=== PATIENT | female | born 1940 | race Caucasian/White ===

== ENCOUNTER 2016-08-19 06:44 | Observation (INO) | payer MEDICARE, OTHER ==
[~2016-08-19] VITALS: Ht 170.2 cm; Wt 82.0 kg
[~2016-08-19 06:44] MED LIST: PAXI10TA2 PO; PLAQ200T PO; PRED1 PO
[2016-08-19 06:50] VITALS: BP 167/76; PULSE 85; RESP 20; TEMP 99.6; O2SAT 94
[2016-08-19] MEDS ORDERED: TETANUS/DIPHTHERIA TOXOID ADULT 0.5 ML VIAL IM ONE (07:15)
[2016-08-19] MEDS ORDERED: PRED1 PO (07:18)
--- NOTE | 2016-08-19 07:20 | PD ---
HPI Chief Complaint: Cold / Flu Symptoms Time Seen by Provider: 07:00 Travel History International Travel<30 days: No Contact w/Intl Traveler<30days: No Traveled to known affect area: No History of Present Illness HPI 76 years old female complains of left chest discomfort. Patient states the symptoms started about 9 days ago. Patient states that she has persistent left chest discomfort, not associated with exertion. Patient denies any pain radiation. Patient denies palpitation nausea vomiting diaphoresis. Patient denies any fever chills. Patient states that she has intermittent mild productive cough for the past 5 days. Patient has history of COPD. Patient contacted her physician about 5 days ago and was given prescription for Medrol Dosepak. Patient states that the discomfort got better with the Medrol Dosepak. Patient denies any history of CAD. Patient denies history hypertension, diabetes, dyslipidemia. Patient states that she injured right hand on the elevator door last night. Patient states that she has a laceration on the back of her right hand. Patient's not up-to-date with TD booster. PFSH Past Medical History Hx Anticoagulant Therapy: No Anxiety: Yes COPD: Yes Diabetes: No Respiratory: Yes (COPD) ?: Not Menopausal: Yes Past Surgical History Section: Yes (X2) Hysterectomy: No Neurologic Surgery: Yes (DISCECTOMY) Tonsillectomy: Yes Other Surgery: Yes (LUMPECTOMY RIGHT BREAST) Social History Alcohol Use: Yes (WINE WITH DINNER) Tobacco Use: No Substance Use: No Allergies-Medications (Allergen,Severity, Reaction): Coded Allergies: Shellfish (Verified Allergy, Severe, Anaphylaxis, 08/19/16) Reported Meds & Prescriptions Reported Meds & Active Scripts Active Reported Prednisone 1 Mg Tab 1 Mg PO DIRECTED Paxil (Paroxetine HCl) 10 Mg Tab Unknown Dose PO DAILY Prednisone 1 Mg Tab 7.5 PO DAILY Plaquenil (Hydroxychloroquine Sulfate) 200 Mg Tab Unknown Dose PO BID Take with food Review of Systems General / Constitutional: No: Fever Eyes: No: Visual changes HENT: No: Headaches Cardiovascular: Positive: Chest Pain or Discomfort Respiratory: No: Shortness of Breath Gastrointestinal: No: Abdominal Pain Genitourinary: No: Dysuria Musculoskeletal: Positive: Pain Skin: No Rash Neurologic: No: Weakness Psychiatric: No: Depression Endocrine: No: Polydipsia Hematologic/Lymphatic: No: Easy Bruising Physical Exam Narrative GENERAL: Well-nourished, well-developed patient. SKIN: Warm and dry. HEAD: Normocephalic. EYES: No scleral icterus. No injection or drainage. NECK: Supple, trachea midline. No JVD or lymphadenopathy. CARDIOVASCULAR: Regular rate and rhythm without murmurs, gallops, or rubs. RESPIRATORY: Breath sounds equal bilaterally. No accessory muscle use. Patient had mild expiratory wheezes on the right lung. Few rhonchi at the bases. GASTROINTESTINAL: Abdomen soft, non-tender, nondistended. MUSCULOSKELETAL: No cyanosis, or edema. Patient has a 3 cm skin avulsion laceration dorsal aspect of the right hand. BACK: Nontender without obvious deformity. No CVA tenderness. Neurologic exam normal. Data Data Last Documented VS Vital Signs Date Time Temp Pulse Resp B/P Pulse Ox O2 Delivery O2 Flow Rate FiO2 08/19/16 07:15 95 Room Air 08/19/16 06:50 99.6 85 20 167/76 Orders Electrocardiogram (08/19/16 07:08) Complete Blood Count With Diff (08/19/16 07:08) Comprehensive Metabolic Panel (08/19/16 07:08) Creatine Kinase (Cpk) (08/19/16 07:08) Troponin I (08/19/16 07:08) Prothrombin Time / Inr (Pt) (08/19/16 07:08) Act Partial Throm Time (Ptt) (08/19/16 07:08) Chest, Single Ap (08/19/16 07:08) Iv Access Insert/Monitor (08/19/16 07:08) Ecg Monitoring (08/19/16 07:08) Oximetry (08/19/16 07:08) Hand, Complete ([id number]) (08/19/16 07:08) Tetanus/Diphtheria Tox Adult (Tetanus/Di (08/19/16 07:15) Labs Laboratory Tests Test 08/19/16 07:35 White Blood Count 17.4 TH/MM3 Red Blood Count 4.65 MIL/MM3 Hemoglobin 14.9 GM/DL Hematocrit 44.4 % Mean Corpuscular Volume 95.7 FL Mean Corpuscular Hemoglobin 32.1 PG Mean Corpuscular Hemoglobin 33.5 % Concent Red Cell Distribution Width 12.7 % Platelet Count 105 TH/MM3 Mean Platelet Volume 9.6 FL Neutrophils (%) (Auto) 79.1 % Lymphocytes (%) (Auto) 9.1 % Monocytes (%) (Auto) 7.9 % Eosinophils (%) (Auto) 2.4 % Basophils (%) (Auto) 1.5 % Neutrophils # (Auto) 13.7 TH/MM3 Lymphocytes # (Auto) 1.6 TH/MM3 Monocytes # (Auto) 1.4 TH/MM3 Eosinophils # (Auto) 0.4 TH/MM3 Basophils # (Auto) 0.3 TH/MM3 CBC Comment AUTO DIFF Differential Comment AUTO DIFF CONFIRMED Platelet Estimate LOW Platelet Morphology Comment ENLARGED Prothrombin Time 10.0 SEC Prothromb Time International 0.9 RATIO Ratio Activated Partial 19.9 SEC Thromboplast Time Sodium Level 144 MEQ/L Potassium Level 4.3 MEQ/L Chloride Level 105 MEQ/L Carbon Dioxide Level 31.9 MEQ/L Anion Gap 7 MEQ/L Blood Urea Nitrogen 16 MG/DL Creatinine 0.76 MG/DL Estimat Glomerular Filtration 74 ML/MIN Rate Random Glucose 109 MG/DL Calcium Level 8.5 MG/DL Total Bilirubin 0.8 MG/DL Aspartate Amino Transf 33 U/L (AST/SGOT) Alanine Aminotransferase 16 U/L (ALT/SGPT) Alkaline Phosphatase 100 U/L Total Creatine Kinase 168 U/L Troponin I 0.02 NG/ML Total Protein 6.8 GM/DL Albumin 3.6 GM/DL [facility] Medical Decision Making Medical Screen Exam Complete: Yes Emergency Medical Condition: Yes Interpretation(s) 8:39 AM. CBC WBC 17.4. Platelet 105. 79 neutrophil. CMP within normal limit. Cardiac enzymes are normal. 9:13 AM. Last Impressions Chest X-Ray 08/19/16 0708 Signed Impressions: Service Date/Time: Friday, August 19, 2016 07:57 - CONCLUSION: No acute disease. Tapan Pizarro MD X-ray right hand shows chronic changes. Differential Diagnosis Differential diagnosis including acute exacerbation COPD, bronchitis, pneumonia , angina, OR, PE, pneumothorax. Narrative Course 76 years old female with left chest discomfort, coughing, right hand injury. Procedures Procedure Narrative Saline wash. Dermabond applied to the laceration to the right hand. Diagnosis Primary Impression: Chest pain Qualified Code: R07.9 - Chest pain, unspecified type Additional Impressions: Laceration of right hand Qualified Code: S61.411A - Laceration of right hand, initial encounter URI (upper respiratory infection) Qualified Code: J06.9 - Upper respiratory tract infection, unspecified type Jeff Parson MD Aug 19, 2016 07:20
[2016-08-19 07:47] LABS: AUTOMATED NEUTROPHIL # 13.7 TH/MM3 (1.8-7.7); BASOPHIL # 0.3 TH/MM3 (0-0.2); BASOPHIL % 1.5 % (0.0-2.0); EOSINOPHIL # 0.4 TH/MM3 (0-0.4); EOSINOPHIL % 2.4 % (0.0-4.0); HEMATOCRIT 44.4 % (35.0-46.0); HEMO FLAGS AUTO DIFF; LYMPH % 9.1 % (9.0-44.0); LYMPHOCYTE # 1.6 TH/MM3 (1.0-4.8); MEAN CELL VOLUME 95.7 FL (80.0-100.0); MEAN CORPUSCULAR HEMOGLOBIN 32.1 PG (27.0-34.0); MEAN CORPUSCULAR HGB CONC 33.5 % (32.0-36.0); MONO % 7.9 % (0.0-8.0); NEUT % 79.1 % (16.0-70.0); PLATELET COUNT 105 TH/MM3 (150-450); RED BLOOD COUNT 4.65 MIL/MM3 (4.00-5.30); RED CELL DISTRIBUTION WIDTH 12.7 % (11.6-17.2); WHITE BLOOD COUNT 17.4 TH/MM3 (4.0-11.0)
[2016-08-19 07:55] LABS: CHLORIDE 105 MEQ/L (98-107); POTASSIUM 4.3 MEQ/L (3.5-5.1); SODIUM (NA) 144 MEQ/L (136-145)
[2016-08-19 07:58] LABS: ANION GAP 7 MEQ/L (5-15); BICARBONATE 31.9 MEQ/L (21.0-32.0); INTERNATIONAL NORMALIZED RATIO 0.9 RATIO
[2016-08-19 07:59] LABS: BLOOD UREA NITROGEN 16 MG/DL (7-18)
[2016-08-19 08:01] LABS: APTT (PATIENT) 19.9 SEC (24.3-30.1)
[2016-08-19 08:02] LABS: ALT (GPT) 16 U/L (10-53); AST (GOT) 33 U/L (15-37); GLOMERULAR FILTRATION RATE 74 ML/MIN (>89)
[2016-08-19 08:03] LABS: TOTAL BILIRUBIN ADULT 0.8 MG/DL (0.2-1.0)
[2016-08-19 08:04] LABS: ALKALINE PHOSPHATASE 100 U/L (45-117); CREATINE KINASE 168 U/L (26-192)
[2016-08-19 08:21] LABS: SCAN/DIFF AUTO DIFF CONFIRMED
[2016-08-19 08:22] LABS: PLATELET ESTIMATE SMEAR LOW (NORMAL); PLATELET MORPHOLOGY ENLARGED (NORMAL)
--- NOTE | 2016-08-19 08:42 | RADHPO ---
EXAM DATE/TIME: 08/19/2016 07:57 [facility] COMPARISON: CHEST SINGLE AP, July 25, 2014, 7:39. INDICATIONS : Left chest discomfort, cough. MEDICAL HISTORY : Chronic obstructive pulmonary disease. SURGICAL HISTORY : section. Discectomy. Lumpectomy. ENCOUNTER: Initial ACUITY: 2 weeks PAIN SCORE: 7/10 LOCATION: Left chest FINDINGS: A single view of the chest demonstrates the lungs to be symmetrically aerated without evidence of mas s, infiltrate or effusion. The cardiomediastinal contours are unremarkable. Osseous structures are intact. CONCLUSION: No acute disease. Tapan Pizarro MD on August 19, 2016 at 8:39 Board Certified Radiologist. This report was verified electronically.
--- NOTE | 2016-08-19 09:01 | RADHPO ---
EXAM DATE/TIME: 08/19/2016 08:01 [facility] COMPARISON: No previous studies available for comparison. INDICATIONS: Right posterior hand laceration/pain across the metacarpals after getting had caught in elevator door . MEDICAL HISTORY: Chronic obstructive pulmonary disease. SURGICAL HISTORY: section. Discectomy. Lumpectomy. ENCOUNTER: Initial ACUITY: 1 day PAIN SCORE: 7/10 LOCATION: Right posterior hand. FINDINGS: There is no acute fracture or dislocation of the right hand. Moderate osteoarthritis is noted involv ing the first carpal metacarpal joint. Chondrocalcinosis is noted involving the expected region of t he triangular fibrocartilage complex. Subchondral cyst is noted involving the lunate. CONCLUSION: 1. No acute fracture or dislocation. 2. 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 3. Chondrocalcinosis involving the triangular fibrocartilage complex. 4. Subchondral cyst within the lunate. Tapan Pizarro MD on August 19, 2016 at 8:53 Board Certified Radiologist. This report was verified electronically.
[2016-08-19] MEDS ORDERED: SODIUM CHLORIDE 0.9% FLUSH 5 ML FLUSH IVF PRN (09:45)
[2016-08-19] MEDS ORDERED: ONDANSETRON HCL 4 MG/2 ML VIAL IV PRN (09:45)
[2016-08-19] MEDS ORDERED: ACETAMINOPHEN 500 MG CPLT PO PRN (09:45)
[2016-08-19 09:56] VITALS: O2SAT 93
[2016-08-19 09:57] VITALS: BP 188/61; PULSE 87; RESP 19; O2SAT 93
[2016-08-19] MEDS ORDERED: HYDROXYCHLOROQUINE SULFATE 200 MG TAB PO ONE (10:00)
[2016-08-19] MEDS ORDERED: PARoxetine HCL 20 MG TAB PO ONE (10:00)
[2016-08-19] MEDS ORDERED: predniSONE 10 MG TAB PO ONE (10:00)
[2016-08-19] MEDS ORDERED: guaiFENesin/DEXTROMETHORPHAN 200 MG/20 MG/10 ML CUP PO PRN (10:00)
[2016-08-19] MEDS ORDERED: RESP: ALBUTEROL 2.5 MG/IPRATROPIUM 0.5 MG NEB (PRN) NEB ×2 (10:00→13:00)
[2016-08-19 11:00] VITALS: O2SAT 95
[2016-08-19 11:12] VITALS: BP 159/93; PULSE 87; RESP 16; O2SAT 93
--- NOTE | 2016-08-19 11:37 | EKG ---
Date Performed: 08/19/2016 Time Performed: 07:39:06 PTAGE: 76 years EKG: Sinus rhythm Lateral T wave changes are nonspecific Borderline ECG PREVIOUS TRACING : 07/25/2014 06.46 DOCTOR: Tevin Cunningham Interpretating Date/Time 08/19/2016 11:34:49
[2016-08-19 11:59] LABS: CREATINE KINASE 122 U/L (26-192)
[2016-08-19 12:11] LABS: CKMB 3.2 NG/ML (0.5-3.6)
[2016-08-19 12:31] VITALS: BP 167/80; PULSE 81; RESP 16; TEMP 99.7; O2SAT 91
[2016-08-19] MEDS ORDERED: LEVOFLOXACIN 500 MG TAB PO SCH (13:00)
--- NOTE | 2016-08-19 13:09 | HHI.HP ---
[facility] Primary Care Physician Chelsie Puente MD Admission Diagnosis chest pain. URI. Diagnoses: (1) Chest pressure Diagnosis: Principal (2) Chronic obstructive pulmonary disease Diagnosis: Secondary (3) Leukocytosis Diagnosis: Secondary (4) Rheumatoid arthritis Diagnosis: Secondary (5) Anxiety Chief Complaint: Chest pressure Travel History International Travel<30 Days: No Contact w/Intl Traveler <30 Da: No Traveled to Known Affected Are: No History of Present Illness 76-year-old female with known history of chronic obstructive pulmonary disease, anxiety, rheumatoid arthritis who presented to hospital because of chest discomfort. Patient states that she has been having symptoms for up to 2 weeks with a pressure type sensation in her left anterior chest that has remained persistent but improving without any radiation to the neck, back, shoulder, arm. Denied any nausea, vomiting, diaphoresis. Patient states he started developing cough, congestion, phlegm production with yellow coloration with some minimal shortness of breath with associated wheeze. The patient does have chronic obstructive pulmonary disease and she thought that she may be developing bronchitis so she called her product trainer, Dr. yarbrough approximately a week ago and was prescribed a steroid pack in which she is down to 10 mg daily this time. Patient states that she usually gets prescribed an antibiotic whenever this occurs, however her primary doctor did not do at this time. She states that the discomfort has significantly improved and her wheeze has improved. However, yesterday she was in charge of planning the [employer] and she overdid herself. She woke up this morning with increased wheeze and chest pressure so she came to the hospital for evaluation. Patient is hoping to get prescribed a antibiotic can be sent home. However because of her chest discomfort, it was recommended by the ER physician that the patient be observed in the chest pain center for further evaluation management. Review of Systems Constitutional: DENIES: Diaphoretic episodes, Fatigue, Fever, Weight gain, Weight loss, Chills, Dizziness, Change in appetite, Night Sweats Eyes: DENIES: Blurred vision, Diplopia, Eye inflammation, Eye pain, Vision loss , Double Vision Ears, nose, mouth, throat: DENIES: Vertigo, Nasal discharge, Throat pain, Ear Pain, Running Nose, Toothache Respiratory: COMPLAINS OF: Cough, DENIES: Apneas, Snoring, Wheezing, Hemoptysis, Sputum production, Shortness of breath Cardiovascular: COMPLAINS OF: Chest pain (pressure), DENIES: Palpitations, Syncope, Dyspnea on Exertion, Lower Extremity Edema, Orthopnea Gastrointestinal: DENIES: Abdominal pain, Black stools, Bloody stools, Constipation, Diarrhea, Nausea, Vomiting, Difficulty Swallowing, Anorexia Neurologic: DENIES: Abnormal gait, Headache, Localized weakness, Paresthesias, Seizures, Speech Problems, Tremor, Poor Balance Psychiatric: COMPLAINS OF: Anxiety, DENIES: Confusion, Mood changes, Depression Past Family Social History Past Medical History Chronic obstructive pulmonary disease Rheumatoid arthritis History of breast cancer, survival for 7 years Anxiety Past Surgical History Cataract surgery Tonsillectomy Back surgery Right breast lumpectomy Reported Medications Reported Meds & Active Scripts Active Reported Prednisone 1 Mg Tab 1 Mg PO DIRECTED Paxil (Paroxetine HCl) 10 Mg Tab Unknown Dose PO DAILY Prednisone 1 Mg Tab 7.5 PO DAILY Plaquenil (Hydroxychloroquine Sulfate) 200 Mg Tab Unknown Dose PO BID Take with food Allergies: Coded Allergies: Shellfish (Verified Allergy, Severe, Anaphylaxis, 08/19/16) Family History Reviewed is significant for mother from throat cancer Social History Patient quit smoking in 1984, prior to that she smoked up to 2 pack a cigarettes a day since she was 19 years old. She does drink 2 glasses of wine daily. Denies any illicit drugs Physical Exam Vital Signs Vital Signs Date Time Temp Pulse Resp B/P Pulse Ox O2 Delivery O2 Flow Rate FiO2 08/19/16 12:31 99.7 81 16 167/80 91 08/19/16 11:12 87 16 159/93 93 Room Air 08/19/16 11:06 Room Air 21 08/19/16 11:00 95 21 08/19/16 09:57 87 19 188/61 93 Room Air 08/19/16 09:56 93 Room Air 08/19/16 07:15 95 Room Air 08/19/16 06:50 99.6 85 20 167/76 94 Physical Exam GENERAL: Well-developed, well-nourished, in no acute distress. alert and orientated HEENT: Head is normocephalic without any lesions or masses noted. Facial features are symmetric. Eyes: Pupils equal round reactive to light. Extraocular muscles are intact. Conjunctivae were clear. Oropharyngeal: Pharynx without any erythema edema. Tongue is midline without deviation. Buccal mucosa is moist without any masses or lesions NECK: Supple without any masses. Trachea midline no deviation. No JVD, no bruits are appreciated CARDIAC: Regular rhythm, regular rate. S1/S2 are heard. No murmurs gallops or rubs. LUNGS: Mild expiratory wheeze noted in the left anterior chest, no rhonchi or rales. No use of accessory muscles on inspiration or expiration. ABDOMEN: Soft, nontender. Nondistended. Bowel sounds heard in all 4 quadrants. No organomegaly or masses. Negative rebound, negative guarding EXTREMITIES: No edema, pulses are equal bilaterally. No cyanosis or clubbing NEUROLOGY: Mood and affect appear appropriate. Cranial nerves II through XII grossly intact. Muscle strength 5/5 in upper and lower extremities bilaterally. Deep tendon reflexes are 2+ in upper and lower extremities bilaterally. Laboratory Laboratory Tests Test 08/19/16 08/19/16 07:35 11:30 White Blood Count 17.4 Red Blood Count 4.65 Hemoglobin 14.9 Hematocrit 44.4 Mean Corpuscular Volume 95.7 Mean Corpuscular Hemoglobin 32.1 Mean Corpuscular Hemoglobin 33.5 Concent Red Cell Distribution Width 12.7 Platelet Count 105 Mean Platelet Volume 9.6 Neutrophils (%) (Auto) 79.1 Lymphocytes (%) (Auto) 9.1 Monocytes (%) (Auto) 7.9 Eosinophils (%) (Auto) 2.4 Basophils (%) (Auto) 1.5 Neutrophils # (Auto) 13.7 Lymphocytes # (Auto) 1.6 Monocytes # (Auto) 1.4 Eosinophils # (Auto) 0.4 Basophils # (Auto) 0.3 CBC Comment AUTO DIFF Differential Comment AUTO DIFF CONFIRMED Platelet Estimate LOW Platelet Morphology Comment ENLARGED Prothrombin Time 10.0 Prothromb Time International 0.9 Ratio Activated Partial 19.9 Thromboplast Time Sodium Level 144 Potassium Level 4.3 Chloride Level 105 Carbon Dioxide Level 31.9 Anion Gap 7 Blood Urea Nitrogen 16 Creatinine 0.76 Estimat Glomerular Filtration 74 Rate Random Glucose 109 Calcium Level 8.5 Total Bilirubin 0.8 Aspartate Amino Transf 33 (AST/SGOT) Alanine Aminotransferase 16 (ALT/SGPT) Alkaline Phosphatase 100 Total Creatine Kinase 168 122 Troponin I 0.02 0.03 Total Protein 6.8 Albumin 3.6 Creatine Kinase MB 3.2 Result Diagram: 08/19/1673408/19/16734 Imaging Last Impressions Hand X-Ray 08/19/16707 Signed Impressions: Service Date/Time: Friday, August 19, 2016 08:01 - CONCLUSION: 1. No acute fracture or dislocation. 2. 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 3. Chondrocalcinosis involving the triangular fibrocartilage complex. 4. Subchondral cyst within the lunate. Tapan Pizarro MD Chest X-Ray 08/19/16707 Signed Impressions: Service Date/Time: Friday, August 19, 2016 07:57 - CONCLUSION: No acute disease. Tapan Pizarro MD Assessment and Plan Assessment and Plan Chest pressure Etiology indeterminate this time, could be secondary to COPD, bronchitis, upper respiratory infection, cardiac etiology Patient with minimal risk factors include age, history of tobacco use Thus far, cardiac enzymes are negative for any acute coronary event, will continue 1 more set Thus far EKG shows sinus rhythm with lateral T-wave changes which are nonsignificant without any changes Continue aspirin and nitroglycerin as needed Patient indicates that this is same chest discomfort that she gets whenever she has COPD exacerbation, bronchitis. Discussed with patient's primary medical doctor Dr. Puente, notified her that patient appears to have noncardiac chest pain, patient does not feel like she needs to undergo any cardiac testing because this is same symptoms she has when she has her lung problems. Patient was notified to follow-up with Dr. Puente. Dr. Puente is aware and agrees with plan of care. Chronic obstructive pulmonary disease, possible early bronchitis Continue O2 supplementation maintain O2 sats greater than 92% Give 1 dose of Solu-Medrol 60 mg IV, Continue prednisone 10 mg by mouth twice daily Start Levaquin 500 mg daily, patient does appear to have some underlying possible chronic kidney disease stage III Continue nebulizer treatments every 6 hours and every 2 hours as needed Start incentive spirometry Start Robitussin Cough medicine Leukocytosis Likely secondary to recent steroid use Continue follow CBC Rheumatoid arthritis Continue Plaquenil Anxiety Continue Paxil DVT prevention Sequential compression devices Written by Vincent Feliciano PA-C, acting as scribe for Dr. Oneill on 08/19/16 at 1330. The documentation accurately reflects the work and decisions performed face-to- face by Dr. Oneill on 08/19/16 at 1330. Discharge disposition Discharge home in stable condition Activity: Ad kaya. Diet: Healthy heart diet Medications per medication reconciliation Follow-up primary medical doctor in one week Problem Qualifiers (1) Chronic obstructive pulmonary disease: Qualified Code: J44.9 - Chronic obstructive pulmonary disease, unspecified COPD type (2) Leukocytosis: Qualified Code: D72.829 - Leukocytosis, unspecified type (3) Rheumatoid arthritis: Qualified Code: M06.9 - Rheumatoid arthritis, involving unspecified site, unspecified rheumatoid factor presence Vincent Feliciano Aug 19, 2016 13:09
[2016-08-19] MEDS ORDERED: IPRASOL NEB (13:27)
[2016-08-19] MEDS ORDERED: LEVA500T PO (13:27)
--- NOTE | 2016-08-19 13:27 | HHI.DCPOC ---
Discharge Care Plan Diagnosis: (1) Chest pressure (2) Chronic obstructive pulmonary disease Goals to Promote Your Health * To prevent worsening of your condition and complications * To maintain your health at the optimal level Directions to Meet Your Goals Take your medications as prescribed Follow your dietary instruction Follow activity as directed Keep your appointments as scheduled Take your immunizations and boosters as scheduled If your symptoms worsen call your PCP, if no PCP go to Urgent Care Center or Emergency Room Smoking is Dangerous to Your Health. Avoid second hand smoke Call the 24-hour hour crisis hotline for domestic abuse at Vincent Feliciano Aug 19, 2016 13:27
[2016-08-19] MEDS ORDERED: methylPREDNISolone SOD SUCC 40 MG/1 ML VIAL IV PUSH ONE (13:30)
[2016-08-19 14:43] LABS: CREATINE KINASE 115 U/L (26-192)
[2016-08-19] MEDS ORDERED: RESP: ALBUTEROL 2.5 MG/IPRATROPIUM 0.5 MG NEB (SCH) NEB (16:00)
[2016-08-19] MEDS ORDERED: SODIUM CHLORIDE 0.9% FLUSH 5 ML FLUSH IVF SCH (21:00)
[2016-08-19] MEDS ORDERED: predniSONE 10 MG TAB PO SCH (21:00)
[2016-08-20] MEDS ORDERED: HYDROXYCHLOROQUINE SULFATE 200 MG TAB PO SCH (09:00)
[2016-08-20] MEDS ORDERED: PARoxetine HCL 20 MG TAB PO SCH (09:00)
--- NOTE | 2016-08-20 17:31 | EKG ---
Date Performed: 08/19/2016 Time Performed: 11:09:20 PTAGE: 76 years EKG: Sinus rhythm . Lateral T wave changes are nonspecific Since previous tracing, no significant change noted Borderli ne ECG PREVIOUS TRACING : 08/19/2016 07.39 DOCTOR: Karri Lecuhga Interpretating Date/Time 08/20/2016 17:30:12
--- NOTE | 2016-08-20 17:31 | EKG ---
Date Performed: 08/19/2016 Time Performed: 14:09:08 PTAGE: 76 years EKG: Sinus rhythm with PAC(s). Since previous tracing, no significant change noted Borderline ECG PREVIOUS TRACING : 08/19/2016 11.09 DOCTOR: Karri Lechuga Interpretating Date/Time 08/20/2016 17:30:29
== END 2016-08-19 15:58 | disposition home or self-care (01) ==
LOC: PHED 06:44 → PHEDA 09:42 → PH3B 11:59
PROVIDERS: ADMIT Family Medicine; ATTEND Family Medicine
DX: R07.89 Other chest pain (principal); J44.9 Chronic obstructive pulmonary disease, unspecified; S61.411A Laceration without foreign body of right hand, initial encounter; J06.9 Acute upper respiratory infection, unspecified; F41.9 Anxiety disorder, unspecified; M06.9 Rheumatoid arthritis, unspecified; M11.20 Other chondrocalcinosis, unspecified site; M19.90 Unspecified osteoarthritis, unspecified site; Z85.3 Personal history of malignant neoplasm of breast; Z87.891 Personal history of nicotine dependence
CPT/HCPCS: 12013; 71010; 73130; 80053; 82550; 82552; 84484; 85025; 85610; 85730; 90471; 90714; 93005; 94150; 94640; 94664; 99285; G0378; J2920; J7512

== ENCOUNTER → 2016-09-12 | Outpatient (CLI) | payer MEDICARE, OTHER ==
[~2016-09-12] MED LIST changes: +IPRASOL NEB; +LEVA500T PO
[2016-09-12 13:34] LABS: FREE T4 1.09 NG/DL (0.76-1.46)
== END ==
LOC: CLAB 11:49
PROVIDERS: ATTEND Internal Medicine Cardiovascular Disease
DX: R53.83 Other fatigue (principal); I49.9 Cardiac arrhythmia, unspecified; R07.89 Other chest pain
CPT/HCPCS: 36415; 84439; 84443

== ENCOUNTER → 2016-10-23 | Outpatient (CLI) | payer MEDICARE, OTHER ==
--- NOTE | 2016-10-23 14:12 | RSPPFT ---
DATE OF PROCEDURE: 10/23/16 COMMENTS: VOLUMES DYNAMIC: FVC mildly reduced; FEV1 moderately reduced. STATIC: VTG moderately increased; RV severely increased; TLC normal. FLOWS: FEV1% moderately reduced; FEF 25-75 severely reduced. DIFFUSION: Normal. FLOW VOLUME LOOP: Pattern of variable intrathoracic airways obstruction. IMPRESSION: Moderately severe obstructive ventilatory defect with significant hyperinflation. Airways resistance is increased. There is improvement post-bronchodilator. Diffusion is normal.
== END ==
LOC: HRSP 08:57
PROVIDERS: ATTEND Internal Medicine
DX: J44.9 Chronic obstructive pulmonary disease, unspecified (principal)
CPT/HCPCS: 94060; 94620; 94726; 94729

== ENCOUNTER 2017-06-08 09:50 | Emergency (ER) | payer MEDICARE, OTHER ==
[~2017-06-08] VITALS: Ht 167.6 cm; Wt 81.0 kg
[~2017-06-08 09:50] MED LIST changes: -PAXI10TA2 PO; +PAXI10TA8 PO
[2017-06-08 09:52] VITALS: BP 182/81; PULSE 88; RESP 16; TEMP 98.4; O2SAT 95
[2017-06-08] MEDS ORDERED: SODIUM CHLORIDE 0.9% FLUSH 10 ML FLUSH IVF PRN (10:15)
[2017-06-08] MEDS ORDERED: methylPREDNISolone SOD SUCC 125 MG/2 ML VIAL IV PUSH ONE (10:45)
--- NOTE | 2017-06-08 10:45 | RADRPT ---
EXAM DATE/TIME: 06/08/2017 10:20 [facility] COMPARISON: CHEST SINGLE AP, July 25, 2014, 7:39. CHEST SINGLE AP, August 19, 2016, 7:57. INDICATIONS : Cough, shortness of breath MEDICAL HISTORY : Chronic obstructive pulmonary disease. SURGICAL HISTORY : section. Discectomy. Lumpectomy. ENCOUNTER: Initial ACUITY: 4 - 6 days PAIN SCORE: 0/10 LOCATION: Bilateral chest FINDINGS: Mild motion blurring of the mid and lower lung crawford. No definite infiltrates seen. Heart is kristin l size. Both hemidiaphragms remain delineated. Hemoclips and a focal opacity in the lateral right l ower chest wall stable from prior chest x-ray. CONCLUSION: No consolidative infiltrates seen. Braden Us MD on June 08, 2017 at 10:42 Board Certified Radiologist. This report was verified electronically.
[2017-06-08] MEDS: RESP: ALBUTEROL 2.5 MG/IPRATROPIUM 0.5 MG NEB (SCH) INH (10:47)
[2017-06-08 10:59] LABS: BASOPHIL % 0.1 % (0.0-2.0); HEMATOCRIT 43.2 % (35.0-46.0); HEMO FLAGS DIFF FINAL; LYMPH % 3.4 % (9.0-44.0); LYMPHOCYTE # 0.5 TH/MM3 (1.0-4.8); MEAN CELL VOLUME 95.3 FL (80.0-100.0); MEAN CORPUSCULAR HEMOGLOBIN 32.4 PG (27.0-34.0); MONO % 9.8 % (0.0-8.0); NEUT % 86.7 % (16.0-70.0); PLATELET COUNT 153 TH/MM3 (150-450); RED BLOOD COUNT 4.53 MIL/MM3 (4.00-5.30); RED CELL DISTRIBUTION WIDTH 12.8 % (11.6-17.2); WHITE BLOOD COUNT 13.9 TH/MM3 (4.0-11.0)
[2017-06-08 11:15] LABS: POTASSIUM 3.9 MEQ/L (3.5-5.1)
[2017-06-08] MEDS ORDERED: ZITHTAB PO (11:30)
[2017-06-08] MEDS ORDERED: PRED10PA2 PO (11:30)
--- NOTE | 2017-06-08 11:30 | PD ---
HPI . Shortness of breath Chief Complaint: Respiratory Symptoms Time Seen by Provider: 10:38 Travel History International Travel<30 days: No Contact w/Intl Traveler<30days: No Traveled to known affect area: No History of Present Illness HPI This patient presents with chief complaint of shortness of breath. Onset was 5 days ago. Shortness of breath is exacerbated by eating. It is associated with a cough productive of purulent sputum. It has been unrelieved by a beta agonist MDI. No associated fevers or chills. Patient reports a history of COPD. She has an albuterol MDI which she uses as a rescue inhaler. She was on a cruise for the past 5 days. She got off the ship this morning. She states that she developed the cough and shortness of breath at about the time the cruise started. She states that she went and saw the ship's doctor who gave her the beta agonist MDI. She has been using that but is not getting any better. She subsequently presents directly to us from the ship for evaluation of her shortness of breath and productive cough. PFSH Past Medical History Hx Anticoagulant Therapy: No Anxiety: Yes COPD: Yes Diabetes: No Diminished Hearing: No Respiratory: Yes (copd) Pneumonia: Yes ?: Not Menopausal: Yes Past Surgical History Section: Yes (X2) Hysterectomy: No Neurologic Surgery: Yes (DISCECTOMY) Tonsillectomy: Yes Other Surgery: Yes (LUMPECTOMY RIGHT BREAST) Social History Alcohol Use: Yes (WINE 1-2 GLASSES WITH DINNER) Tobacco Use: No Substance Use: No Allergies-Medications (Allergen,Severity, Reaction): Coded Allergies: shellfish derived (Unverified Allergy, Severe, Anaphylaxis, 02/26/17) Reported Meds & Prescriptions Reported Meds & Active Scripts Active Duoneb (Ipratropium-Albuterol Neb) 0.5-2.5 Mg/3 Ml Neb 1 Ampule NEB Q6HR NEB 30 Days Levaquin (Levofloxacin) 500 Mg Tab 500 Mg PO DAILY 7 Days Reported Prednisone 1 Mg Tab 1 Mg PO DIRECTED Paxil (Paroxetine HCl) 10 Mg Tab Unknown Dose PO DAILY Prednisone 1 Mg Tab 7.5 PO DAILY Plaquenil (Hydroxychloroquine Sulfate) 200 Mg Tab Unknown Dose PO BID Take with food Review of Systems Except as stated in HPI: all other systems reviewed are Neg General / Constitutional: No: Fever, Chills Cardiovascular: No: Chest Pain or Discomfort Respiratory: Positive: Cough, Shortness of Breath Gastrointestinal: Positive: Loss of Appetite Physical Exam Narrative GENERAL: Awake and alert and in no acute distress. SKIN: warm/dry. Good color. HEAD: Normocephalic. Atraumatic. EYES: Pupils equal and round. No scleral icterus. No injection or drainage. ENT: No nasal bleeding or discharge. Mucous membranes pink and moist. NECK: Trachea midline. Full range of motion without pain.. CARDIOVASCULAR: Regular rate and rhythm. Normal heart sounds. RESPIRATORY: Able to speak in complete sentences without any respiratory distress. No accessory muscle use. Diffuse expiratory wheezing heard with coughing. Breath sounds equal bilaterally. GASTROINTESTINAL: Abdomen soft. Nontender. Bowel sounds present. Nondistended. : Deferred MUSCULOSKELETAL: No obvious deformities. NEUROLOGICAL: Awake and alert. No obvious cranial nerve deficits. Motor grossly within normal limits. Normal speech. PSYCHIATRIC: Appropriate mood and affect; insight and judgment normal. Data Data Last Documented VS Vital Signs Date Time Temp Pulse Resp B/P (MAP) Pulse Ox O2 Delivery O2 Flow Rate FiO2 06/08/17 10:09 Room Air 06/08/17 09:52 98.4 88 16 182/81 (114) 95 Orders Orders Basic Metabolic Panel (Bmp) (06/08/17 10:10) Complete Blood Count With Diff (06/08/17 10:10) Blood Culture (06/08/17 10:10) Chest, Single Ap (06/08/17 10:10) Sodium Chloride 0.9% Flush (Ns Flush) (06/08/17 10:15) Albuterol-Ipratropium Neb (Duoneb Neb) (06/08/17 10:45) Methylprednisolone So Succ Inj (Solumedr (06/08/17 10:45) Labs Laboratory Tests Test 06/08/17 10:40 White Blood Count 13.9 TH/MM3 Red Blood Count 4.53 MIL/MM3 Hemoglobin 14.7 GM/DL Hematocrit 43.2 % Mean Corpuscular Volume 95.3 FL Mean Corpuscular Hemoglobin 32.4 PG Mean Corpuscular Hemoglobin Concent 34.0 % Red Cell Distribution Width 12.8 % Platelet Count 153 TH/MM3 Mean Platelet Volume 9.9 FL Neutrophils (%) (Auto) 86.7 % Lymphocytes (%) (Auto) 3.4 % Monocytes (%) (Auto) 9.8 % Eosinophils (%) (Auto) 0.0 % Basophils (%) (Auto) 0.1 % Neutrophils # (Auto) 12.0 TH/MM3 Lymphocytes # (Auto) 0.5 TH/MM3 Monocytes # (Auto) 1.4 TH/MM3 Eosinophils # (Auto) 0.0 TH/MM3 Basophils # (Auto) 0.0 TH/MM3 CBC Comment DIFF FINAL Differential Comment Blood Urea Nitrogen 27 MG/DL Creatinine 0.65 MG/DL Random Glucose 148 MG/DL Calcium Level 9.0 MG/DL Sodium Level 138 MEQ/L Potassium Level 3.9 MEQ/L Chloride Level 100 MEQ/L Carbon Dioxide Level 31.0 MEQ/L Anion Gap 7 MEQ/L Estimat Glomerular Filtration Rate 89 ML/MIN MDM Medical Decision Making Medical Screen Exam Complete: Yes Emergency Medical Condition: Yes Differential Diagnosis Differential diagnosis includes but is not limited to viral respiratory illness , bronchitis, pneumonia, allergies, CHF, asthma/COPD. Narrative Course Patient presents complaining with a cough and shortness of breath. CBC & BMP Diagram 06/08/17 10:40 Calcium Level 9.0 CXR>>No consolidative infiltrates seen. The chest x-ray was independently viewed by me. I will treat the patient for bronchitis with steroids and Zithromax. She should continue her MDI treatment. Diagnosis Primary Impression: Bronchitis Additional Impression: COPD (chronic obstructive pulmonary disease) Qualified Codes: J44.1 - Chronic obstructive pulmonary disease with (acute) exacerbation Patient Instructions: Acute Bronchitis (DC), General Instructions Med/Other Pt SpecificInfo: Prescription(s) given Scripts Prednisone (48) 10 mg tab Dose Pack (Prednisone (48) 10 mg tab Dose Pack) 10 Mg Dspk 10 MG PO DIRECTED for Inflammation, #1 DSPK 0 Refills Prov: Kyleigh Pope MD 06/08/17 Azithromycin (Zithromax Z-Kem) 250 Mg Dspk 250 MG PO DIRECTED for Infection, #1 DSPK 0 Refills 500 MG (2 tabs) day 1, then 1 tab days 2-5. Prov: Kyleigh Pope MD 06/08/17 Disposition: 01 DISCHARGE HOME Condition: Stable Kyleigh Pope MD Jun 08, 2017 11:30
[2017-06-08 12:32] VITALS: BP 137/83
== END 2017-06-08 12:33 | disposition home or self-care (01) ==
LOC: NEPC 09:50
DX: J40 Bronchitis, not specified as acute or chronic (principal); J44.1 Chronic obstructive pulmonary disease with (acute) exacerbation
CPT/HCPCS: 71010; 80048; 85025; 87040; 94664; 96374; 99285; J2930

== ENCOUNTER 2017-06-10 03:05 | Inpatient (IN) | payer MEDICARE, OTHER ==
[~2017-06-10] VITALS: Ht 167.6 cm; Wt 79.0 kg
[2017-06-10] VITALS (27 sets, daily range): BP systolic 117–221; BP diastolic 54–93; PULSE 77–170; RESP 16–28; TEMP 98–98.7; O2SAT 94–100
[~2017-06-10 03:05] MED LIST changes: +PRED10PA2 PO; +ZITHTAB PO
[2017-06-10 03:28] LABS: AUTOMATED NEUTROPHIL # 17.8 TH/MM3 (1.8-7.7); BASOPHIL % 0.2 % (0.0-2.0); HEMATOCRIT 45.9 % (35.0-46.0); LYMPHOCYTE # 1.5 TH/MM3 (1.0-4.8); MEAN CELL VOLUME 96.9 FL (80.0-100.0); MEAN CORPUSCULAR HEMOGLOBIN 32.5 PG (27.0-34.0); MEAN CORPUSCULAR HGB CONC 33.6 % (32.0-36.0); NEUT % 81.8 % (16.0-70.0); PLATELET COUNT 244 TH/MM3 (150-450); RED BLOOD COUNT 4.73 MIL/MM3 (4.00-5.30); WHITE BLOOD COUNT 21.8 TH/MM3 (4.0-11.0)
[2017-06-10 03:34] LABS: HEMO FLAGS AUTO DIFF
--- NOTE | 2017-06-10 03:42 | RADRPT ---
EXAM DATE/TIME: 06/10/2017 03:22 [place] COMPARISON: CHEST SINGLE AP, June 08, 2017, 10:20. INDICATIONS : Shortness of breath. MEDICAL HISTORY : Chronic obstructive pulmonary disease. SURGICAL HISTORY : section. Discectomy. Lumpectomy. ENCOUNTER: Initial ACUITY: 1 day PAIN SCORE: 0/10 LOCATION: Bilateral chest FINDINGS: A single view of the chest demonstrates the lungs to be symmetrically aerated without evidence of mas s, infiltrate or effusion. The cardiomediastinal contours are unremarkable. Osseous structures are intact. There is an oval calcific density with surrounding clips seen in the right lateral chest. CONCLUSION: No acute disease. Rishi Mulligan MD on June 10, 2017 at 3:40 Board Certified Radiologist. This report was verified electronically.
[2017-06-10 04:00] LABS: BANDS 12 % (0-6); METAMYELOCYTES 2 % (0-1); NEUTROPHIL # MANUAL DIFF 18.7 TH/MM3 (1.8-7.7); POLYS (SEG NEUTROPHILS) 72 % (16-70); SCAN/DIFF FINAL DIFF MANUAL; TOXIC VACUOLATION PRESENT (NONE SEEN); WBC DIFF SAMPLE 100
[2017-06-10 04:01] LABS: PLATELET ESTIMATE SMEAR NORMAL (NORMAL); PLATELET MORPHOLOGY NORMAL (NORMAL); TOXIC GRANULATION 1+ (NORMAL)
--- NOTE | 2017-06-10 04:07 | PD ---
HPI Chief Complaint: Respiratory Symptoms Time Seen by Provider: 03:31 Travel History International Travel<30 days: No Contact w/Intl Traveler<30days: No Traveled to known affect area: No History of Present Illness HPI The patient is a 76 year old female who presents to the [facility] emergency department with a history of history of congestion and cough that began a week ago. Her cough has been productive of yellow to green sputum. She reports having low grade fevers. She has had shortness of breath and wheezing. She has a history of COPD. She was seen in the emergency department and started on a prednisone taper on Friday as well as a Zithromax pack. She reports that she completed the course of antibiotic yesterday and continues to be on the steroid. The patient reports that this evening she was trying to get up to go to the bathroom when she had worsening shortness of breath. She reports that she was incontinent of urine and she was not able to get to the bathroom. Ambulance services were called and the patient was noted to have diffuse wheezing. The patient was placed on an albuterol nebulizer treatment and was given 3 prior to arrival. IV access was obtained and the patient was given Solu-Medrol 125 mg IV. A review of systems otherwise, the patient denies having any chest pain, however she reports having tightness when she tries to take a deep breath. She denies having any prior history of heart disease. She denies having any lower extremity edema, calf pain, or erythema. On review of systems otherwise, she denies having any neck pain, abdominal pain, vomiting, diarrhea, urinary symptoms, or neurologic symptoms. The patient reports that she has had her pneumonia vaccine as well as her influenza vaccine this season. [facility], [facility] Past Medical History Narrative Medical The patient's past medical history is significant for COPD rheumatoid arthritis , history of breast cancer that is post lumpectomy followed by radiation therapy in 2005. Hx Anticoagulant Therapy: No Anxiety: Yes COPD: Yes Diabetes: No Diminished Hearing: No Respiratory: Yes (copd) Pneumonia: Yes Influenza Vaccination: Yes ?: Not Menopausal: Yes Past Surgical History Narrative Surgical The patient's past surgical history is significant for lumpectomy of the right breast, discectomy, tonsillectomy. Section: Yes (X2) Hysterectomy: No Neurologic Surgery: Yes (DISCECTOMY) Tonsillectomy: Yes Other Surgery: Yes (LUMPECTOMY RIGHT BREAST) Social History Alcohol Use: Yes (WINE 1-2 GLASSES WITH DINNER) Tobacco Use: No Substance Use: No Allergies-Medications (Allergen,Severity, Reaction): Coded Allergies: shellfish derived (Unverified Allergy, Severe, Anaphylaxis, 02/26/17) Reported Meds & Prescriptions Reported Meds & Active Scripts Active Prednisone (48) 10 mg tab Dose Pack (Prednisone) 10 Mg Dspk 10 Mg PO DIRECTED Duoneb (Ipratropium-Albuterol Neb) 0.5-2.5 Mg/3 Ml Neb 1 Ampule NEB Q6HR NEB 30 Days Reported Prednisone 1 Mg Tab 1 Mg PO DIRECTED Paxil (Paroxetine HCl) 10 Mg Tab Unknown Dose PO DAILY Prednisone 1 Mg Tab 7.5 PO DAILY Plaquenil (Hydroxychloroquine Sulfate) 200 Mg Tab Unknown Dose PO BID Take with food Review of Systems Except as stated in HPI: all other systems reviewed are Neg General / Constitutional: Positive: Fever, Chills Eyes: No: Visual changes HENT: Positive: Congestion, No: Headaches Cardiovascular: Positive: Chest Pain or Discomfort (chest tightness with taking a deep breath), Dyspnea on exertion Respiratory: Positive: Cough, Shortness of Breath Gastrointestinal: No: Nausea, Vomiting, Diarrhea, Abdominal Pain Genitourinary: No: Dysuria Musculoskeletal: No: Pain Skin: No Rash Neurologic: No: Weakness Psychiatric: No: Depression Endocrine: No: Polydipsia Hematologic/Lymphatic: No: Easy Bruising Physical Exam Narrative General: The patient is a well-developed well-nourished female, uncomfortable appearing on arrival with conversational dyspnea. Head and Neck exam: Head is normocephalic atraumatic. Eyes: EOMI, pupils are equal round and reactive to light. Nose: Midline septum with pink mucous membranes Mouth: Dentition unremarkable. Moist mucus membranes. Posterior oropharynx is not erythematous. No tonsillar hypertrophy. Uvula midline. Airway patent. Neck: No palpable lymphadenopathy. No nuchal rigidity. No thyromegaly. Cardiovascular: Sinus tachycardia in the low 100s without murmurs, gallops, or rubs. No pulse deficit to the extremities on simultaneous auscultation and palpation of her radial artery. Lungs: Expiratory wheezes audible throughout bilateral lung crawford, and scattered rhonchi that improved with coughing. No crackles audible. The patient has accessory muscle use noted. The patient has no tripoding. No paroxysmal abdominal breathing. Abdomen: Soft, without tenderness to palpation in all 4 quadrants of the abdomen. No guarding, rebound, or rigidity. Normal bowel sounds are audible. No tenderness on palpation of McBurney's point. Extremities: No clubbing, cyanosis, or edema. 2+ pulses in all 4 extremities. No calf tenderness on palpation. Back: No costovertebral angle tenderness to palpation. Neurologic Exam: Grossly nonfocal. Skin: No rashes noted. The patient is slightly diaphoretic on arrival. Data Data Last Documented VS Vital Signs Date Time Temp Pulse Resp B/P (MAP) Pulse Ox O2 Delivery O2 Flow Rate FiO2 06/10/17 03:12 113 16 204/85 (124) 98 Aerosol Mask 6.00 06/10/17 03:07 98.7 Orders Orders Complete Blood Count With Diff (06/10/17 03:14) Comprehensive Metabolic Panel (06/10/17 03:14) Chest, Single Ap (06/10/17 ) Electrocardiogram (06/10/17 ) Blood Culture (06/10/17 04:07) Cath For Specimen (06/10/17 04:07) Albuterol-Ipratropium Neb (Duoneb Neb) (06/10/17 04:15) Ceftriaxone Inj (Rocephin Inj) (06/10/17 04:15) Azithromycin Inj (Zithromax Inj) (06/10/17 04:15) Lactic Acid Sepsis Protocol (06/10/17 04:07) Sodium Chlor 0.9% 1000 Ml Inj (Ns 1000 M (06/10/17 04:18) Sodium Chlor 0.9% 1000 Ml Inj (Ns 1000 M (06/10/17 04:18) Sodium Chlor 0.9% 1000 Ml Inj (Ns 1000 M (06/10/17 04:18) Resp Bipap / Cpap Non Invas Vt (06/10/17 ) Admit Order (Ed Use Only) (06/10/17 05:17) Labs Laboratory Tests Test 06/10/17 03:15 06/10/17 04:05 White Blood Count 21.8 TH/MM3 Red Blood Count 4.73 MIL/MM3 Hemoglobin 15.4 GM/DL Hematocrit 45.9 % Mean Corpuscular Volume 96.9 FL Mean Corpuscular Hemoglobin 32.5 PG Mean Corpuscular Hemoglobin Concent 33.6 % Red Cell Distribution Width 13.0 % Platelet Count 244 TH/MM3 Mean Platelet Volume 9.2 FL Neutrophils (%) (Auto) 81.8 % Lymphocytes (%) (Auto) 7.0 % Monocytes (%) (Auto) 11.0 % Eosinophils (%) (Auto) 0.0 % Basophils (%) (Auto) 0.2 % Neutrophils # (Auto) 17.8 TH/MM3 Lymphocytes # (Auto) 1.5 TH/MM3 Monocytes # (Auto) 2.4 TH/MM3 Eosinophils # (Auto) 0.0 TH/MM3 Basophils # (Auto) 0.0 TH/MM3 CBC Comment AUTO DIFF Differential Total Cells Counted 100 Neutrophils % (Manual) 72 % Band Neutrophils % 12 % Lymphocytes % 5 % Monocytes % 9 % Neutrophils # (Manual) 18.7 TH/MM3 Metamyelocytes 2 % Differential Comment FINAL DIFF MANUAL Toxic Granulation 1+ Toxic Vacuolation PRESENT Platelet Estimate NORMAL Platelet Morphology Comment NORMAL Red Cell Morphology Comment NORMAL Blood Urea Nitrogen 39 MG/DL Creatinine 0.67 MG/DL Random Glucose 179 MG/DL Total Protein 7.1 GM/DL Albumin 3.3 GM/DL Calcium Level 9.2 MG/DL Alkaline Phosphatase 135 U/L Aspartate Amino Transf (AST/SGOT) 44 U/L Alanine Aminotransferase (ALT/SGPT) 50 U/L Total Bilirubin 0.5 MG/DL Sodium Level 141 MEQ/L Potassium Level 3.9 MEQ/L Chloride Level 106 MEQ/L Carbon Dioxide Level 28.2 MEQ/L Anion Gap 7 MEQ/L Estimat Glomerular Filtration Rate 86 ML/MIN Lactic Acid Level 1.9 mmol/L [facility] Medical Decision Making Medical Screen Exam Complete: Yes Emergency Medical Condition: Yes Medical Record Reviewed: Yes Differential Diagnosis COPD exacerbation, versus pneumonia, versus pneumothorax Narrative Course During the course of the patients emergency department visit, the patients history, examination, and differential diagnosis were reviewed with the patient. The patient was placed on a cardiac cath tech with oximetry and frequent blood pressure monitoring. The patient had IV access obtained and blood work sent for analysis. The patient had an ECG done on arrival that shows a sinus tachycardia with heart rate of 112, no acute ST segment elevation. During the patient's observation on telemetry she did have intermittent episodes of SVT. An ECG was able to be done while she was in an episode which did spontaneously break on its own. The SVT with a rate of 185 with the premature ventricular contraction noted. No acute ST segment elevation. The patient was initially provided normal saline at 30 mL per KG IV fluid bolus once sepsis criteria were met, Rocephin 1 g IV was given 1, Zithromax 500 IV was given. The patients laboratory studies were reviewed and remarkable for a white count of 21.8, hemoglobin 15.4, platelets 244 with 72 neutrophils, bands 12, CMP is remarkable for a glucose of 179, BUN 39, lactic acid 1.9, AST 44, alkaline phosphatase 135 Radiology studies were reviewed and remarkable for a chest x-ray that shows no acute cardiopulmonary disease. The patient was started on BiPAP as the patient continued to have tachypnea. The patients results were discussed with the patient, including the plan of care. I explained that further testing and/ or monitoring is indicated based on the patients history, examination, and/ or laboratory findings. Therefore, I recommended admission for additional evaluation. The patient expressed understanding and was agreeable with this plan. The patient was admitted to the hospital in guarded condition and sent to a bed under the care of the [facility]. Critical Care Narrative Aggregate critical care time was 38 minutes. Time to perform other separately billable procedures was not included in the critical care time. My time did not include minutes spent treating any other patients simultaneously or on activities that did not directly contribute to the patient's treatment. The services I provided to this patient were to treat and/or prevent clinically significant deterioration that could result in: Respiratory failure, versus fluid overload related to over resuscitation with IV fluids per sepsis, versus cardiovascular collapse I provided critical care services requiring my management, as noted below: Chart data review, documentation time, medication orders and management, vital sign assessments/reviewing monitor data, ordering and reviewing lab tests, ordering and interpreting/reviewing x-rays and diagnostic studies, care of the patient and discussion of the patient with the admitting physicians. Sepsis Criteria SIRS Criteria (2 or more): Heart rate over 90, RR > 20 or PaCO2 < 32, WBC > 48541, < 4000 or > 10% bands Sepsis Criteria (SIRS+source): Infect source susp/known Criteria Outcome: Meets SIRS criteria, Meets sepsis criteria Physician Communication Physician Communication The patient's case including history, pertinent physical examination findings, and laboratory studies were discussed with Dr. Rousseau. It was agreed that the patient would be admitted to the [facility]. Diagnosis Primary Impression: COPD exacerbation Additional Impressions: Bronchitis Sepsis Qualified Codes: A41.9 - Sepsis, unspecified organism Admitting Information Admitting Physician Requests: Ally Ornelas MD Jun 10, 2017 04:07
[2017-06-10] MEDS ORDERED: AZITHROMYCIN INJ 500 MG in SODIUM CHLOR 0.9% 250 ML INJ 250 ML IV ONE (04:15)
[2017-06-10] MEDS ORDERED: cefTRIAXone INJ 1,000 MG in SODIUM CHLORIDE 0.9% INJ 100 ML IV ONE (04:15)
[2017-06-10] MEDS ORDERED: SODIUM CHLOR 0.9% 1000 ML INJ 400 ML IV ONE (04:18)
[2017-06-10] MEDS ORDERED: SODIUM CHLOR 0.9% 1000 ML INJ 1,000 ML IV ONE ×2 (04:18)
[2017-06-10] MEDS: RESP: ALBUTEROL 2.5 MG/IPRATROPIUM 0.5 MG NEB (SCH) INH ×5 (04:20→23:26)
[2017-06-10 04:33] LABS: ALKALINE PHOSPHATASE 135 U/L (45-117); ALT (GPT) 50 U/L (10-53); ANION GAP 7 MEQ/L (5-15); AST (GOT) 44 U/L (15-37); BICARBONATE 28.2 MEQ/L (21.0-32.0); BLOOD UREA NITROGEN 39 MG/DL (7-18); CHLORIDE 106 MEQ/L (98-107); GLOMERULAR FILTRATION RATE 86 ML/MIN (>89); POTASSIUM 3.9 MEQ/L (3.5-5.1); SODIUM (NA) 141 MEQ/L (136-145); TOTAL BILIRUBIN ADULT 0.5 MG/DL (0.2-1.0)
[2017-06-10] MEDS ORDERED: RESP: ALBUTEROL 2.5 MG/3 ML NEB (PRN) INH (05:30)
[2017-06-10] MEDS ORDERED: SODIUM CHLORIDE 0.9% FLUSH 10 ML FLUSH IV FLUSH PRN (05:30)
[2017-06-10] MEDS ORDERED: methylPREDNISolone SOD SUCC 125 MG/2 ML VIAL IV PUSH SCH (05:30)
[2017-06-10 05:47] LABS: BLOOD GAS BASE EXCESS -0.5 mmol/L (-2-2); BLOOD GAS CARBOXYHEMOGLOBIN 0.8 % (0-4); BLOOD GAS HCO3 26 mmol/L (22-26); BLOOD GAS METHEMOGLOBIN 0.6 % (0-2); BLOOD GAS O2 HGB SATURATION 97 % (90-100); BLOOD GAS OXYGEN CONTENT 18.6 Vol % (12.0-20.0); BLOOD GAS PCO2 60 mmHg (38-42); BLOOD GAS PO2 126 mmHG (61-120); BLOOD GAS TOTAL HGB 13.5 G/DL (12.0-16.0); CRITICAL VALUE YES; DRAW SITE RT RADIAL; FIO2 40 %; NUMBER OF ARTERIAL PUNCTURES 1; OXYGEN DEVICE BiPAP; ULNAR PULSE PRESENT; VENT SETTINGS IPAP12/EPAP5
[2017-06-10 05:48] LABS: STAT YES
[2017-06-10] MEDS: ENOXAPARIN SODIUM 40 MG/0.4 ML SYRINGE SQ SCH (06:05)
--- NOTE | 2017-06-10 08:45 | HHI.HP ---
[facility] Service [facility] Primary Care Physician Chelsie Puente MD Admission Diagnosis copd exacerbation, bronchitis, sepsis, svt Diagnoses: (1) COPD exacerbation Diagnosis: Principal (2) Hypercapnic respiratory failure Diagnosis: Principal Chief Complaint: sob Travel History International Travel<30 Days: No Contact w/Intl Traveler <30 Da: No Traveled to Known Affected Are: No History of Present Illness patient is a 76 y/o female with history of COPD, breast cancer and RA, who presented to ER with worsening shortness of breath. she says that it started a few days ago. it was associated with cough-productive of yellowish sputum. she was seen in ER two days ago and was prescribed prednisone and zithromax and discharged home. she says that despite taking the medications, her sob continued to get worse to the extent that she decided to come back to the hospital. she denies any chest pain, fever or chills.she doesn't use oxygen at home. she was placed on BiPaP in ER . Review of Systems Constitutional: DENIES: Fever, Weight loss, Chills, Night Sweats Eyes: DENIES: Blurred vision, Diplopia, Vision loss, Double Vision Ears, nose, mouth, throat: DENIES: Tinnitus, Vertigo, Throat pain, Epistaxis Respiratory: COMPLAINS OF: Cough, Sputum production, Shortness of breath, DENIES: Apneas, Snoring, Wheezing, Hemoptysis Cardiovascular: DENIES: Chest pain, Palpitations, Syncope, Dyspnea on Exertion , PND, Lower Extremity Edema, Orthopnea, Claudication Gastrointestinal: DENIES: Abdominal pain, Black stools, Bloody stools, Constipation, Diarrhea, Nausea, Vomiting, Difficulty Swallowing, Anorexia Genitourinary: DENIES: Urinary frequency, Urgency, Hematuria, Dysuria Musculoskeletal: DENIES: Joint pain, Muscle aches, Stiffness, Joint Swelling Integumentary: DENIES: Rash Neurologic: DENIES: Abnormal gait, Headache, Localized weakness, Paresthesias, Seizures, Speech Problems, Tremor, Poor Balance Psychiatric: DENIES: Anxiety, Confusion, Mood changes, Depression, Hallucinations, Agitation, Suicidal Ideation, Homicidal Ideation, Delusions Past Family Social History Past Medical History COPD, breast cancer , rheumatoid arthritis Past Surgical History breast lumpectomy, eye surgery. Reported Medications Plaquenil, duoneb, paroxetin Allergies: Coded Allergies: shellfish derived (Unverified Allergy, Severe, Anaphylaxis, 02/26/17) Active Ordered Medications Current Medications Albuterol/ Ipratropium (Duoneb Neb) 1 ampule Q15M INH Last administered on 04:21; Start 06/10/17 at 04:15; Stop 06/10/17 at 04:31; Status DC Ceftriaxone Sodium 1000 mg/ Sodium Chloride 100 ml @ 200 mls/hr ONCE ONCE IV Last administered on 06/10/17 04:26; Start 06/10/17 at 04:15; Stop 06/10/17 at 04:44; Status DC Azithromycin 500 mg/Sodium Chloride 250 ml @ 250 mls/hr ONCE ONCE IV Last administered on 06/10/17 05:15; Start 06/10/17 at 04:15; Stop 06/10/17 at 05 :14; Status DC Sodium Chloride 1,000 ml @ 1,000 mls/hr Q1H ONCE IV Last administered on 06/10 04:31; Start 06/10/17 at 04:18; Stop 06/10/17 at 05:17; Status DC Sodium Chloride 1,000 ml @ 1,000 mls/hr Q1H ONCE IV Last administered on 06/10 05:16; Start 06/10/17 at 04:18; Stop 06/10/17 at 05:17; Status DC Sodium Chloride 400 ml @ 1,000 mls/hr Q24M ONCE IV Last administered on 05:16; Start 06/10/17 at 04:18; Stop 06/10/17 at 04:41; Status DC Ceftriaxone Sodium 1000 mg/ Sodium Chloride 100 ml @ 200 mls/hr Q24H IV ; Start 06/11/17 at 04:30 Azithromycin 500 mg/Sodium Chloride 250 ml @ 250 mls/hr Q24H IV ; Start at 05:30 Sodium Chloride (NS Flush) 2 ml BID IV FLUSH ; Start 06/10/17 at 09:00 Sodium Chloride (NS Flush) 2 ml UNSCH PRN IV FLUSH FLUSH AFTER USING IV ACCESS ; Start 06/10/17 at 05:30 Albuterol/ Ipratropium (Duoneb Neb) 1 ampule Q6HR NEB INH ; Start 06/10/17 at 10:00 Albuterol Sulfate (Albuterol Neb) 2.5 mg Q2HR NEB PRN INH SHORTNESS OF BREATH; Start 06/10/17 at 05:30 Methylprednisolone Sodium Succinate (SoluMEDROL INJ) 40 mg Q6H IV PUSH Last administered on 06/10/17 06:04; Start 06/10/17 at 05:30 Enoxaparin Sodium (Lovenox Inj) 40 mg Q24H SQ Last administered on 06/10/17 06:05; Start 06/10/17 at 05:30 Social History quit smoking years ago. Physical Exam Vital Signs Vital Signs Date Time Temp Pulse Resp B/P (MAP) Pulse Ox O2 Delivery O2 Flow Rate FiO2 06/10/17 07:00 98 4.00 06/10/17 06:58 97 22 166/72 (103) 100 40 06/10/17 05:30 112 20 165/77 (106) 99 BiPAP 40 06/10/17 05:20 98 40 06/10/17 05:20 BiPAP 40 06/10/17 05:15 165 22 206/80 (122) 94 Nasal Cannula 2.00 06/10/17 05:00 170 22 198/86 (123) 94 Nasal Cannula 2.00 06/10/17 03:12 113 16 204/85 (124) 98 Aerosol Mask 6.00 06/10/17 03:10 24 98 Aerosol Mask 6.00 06/10/17 03:07 98.7 113 28 214/93 (133) Physical Exam GENERAL: with respiratory distress-still on BiPaP SKIN: No rashes, ecchymoses or lesions. Cool and dry. HEAD: Atraumatic. Normocephalic. No temporal or scalp tenderness. EYES: Pupils equal round and reactive. Extraocular motions intact. No scleral icterus. No injection or drainage. ENT: Nose without bleeding, purulent drainage or septal hematoma. Throat without erythema, tonsillar hypertrophy or exudate. Uvula midline. Airway patent. NECK: Trachea midline. No JVD or lymphadenopathy. Supple, nontender, no meningeal signs. CARDIOVASCULAR: Regular rate and rhythm without murmurs, gallops, or rubs. RESPIRATORY: diminished air entry bilaterally- with bilateral wheezing. GASTROINTESTINAL: Abdomen soft, non-tender, nondistended. No hepato-splenomegaly , or palpable masses. No guarding. MUSCULOSKELETAL: Extremities without clubbing, cyanosis, or edema. No joint tenderness, effusion, or edema noted. No calf tenderness. Negative Homans sign bilaterally. NEUROLOGICAL: Awake and alert. Cranial nerves II through XII intact. Motor and sensory grossly within normal limits. Five out of 5 muscle strength in all muscle groups. Normal speech. Laboratory Laboratory Tests Test 06/10/17 03:15 06/10/17 04:05 06/10/17 05:36 White Blood Count 21.8 Red Blood Count 4.73 Hemoglobin 15.4 Hematocrit 45.9 Mean Corpuscular Volume 96.9 Mean Corpuscular Hemoglobin 32.5 Mean Corpuscular Hemoglobin Concent 33.6 Red Cell Distribution Width 13.0 Platelet Count 244 Mean Platelet Volume 9.2 Neutrophils (%) (Auto) 81.8 Lymphocytes (%) (Auto) 7.0 Monocytes (%) (Auto) 11.0 Eosinophils (%) (Auto) 0.0 Basophils (%) (Auto) 0.2 Neutrophils # (Auto) 17.8 Lymphocytes # (Auto) 1.5 Monocytes # (Auto) 2.4 Eosinophils # (Auto) 0.0 Basophils # (Auto) 0.0 CBC Comment AUTO DIFF Differential Total Cells Counted 100 Neutrophils % (Manual) 72 Band Neutrophils % 12 Lymphocytes % 5 Monocytes % 9 Neutrophils # (Manual) 18.7 Metamyelocytes 2 Differential Comment FINAL DIFF MANUAL Toxic Granulation 1+ Toxic Vacuolation PRESENT Platelet Estimate NORMAL Platelet Morphology Comment NORMAL Red Cell Morphology Comment NORMAL Blood Urea Nitrogen 39 Creatinine 0.67 Random Glucose 179 Total Protein 7.1 Albumin 3.3 Calcium Level 9.2 Alkaline Phosphatase 135 Aspartate Amino Transf (AST/SGOT) 44 Alanine Aminotransferase (ALT/SGPT) 50 Total Bilirubin 0.5 Sodium Level 141 Potassium Level 3.9 Chloride Level 106 Carbon Dioxide Level 28.2 Anion Gap 7 Estimat Glomerular Filtration Rate 86 Lactic Acid Level 1.9 Blood Gas Puncture Site RT RADIAL Blood Gas Patient Temperature 37.0 Blood Gas HCO3 26 Blood Gas Base Excess -0.5 Blood Gas Oxygen Saturation 97 Arterial Blood pH 7.26 Arterial Blood Partial Pressure CO2 60 Arterial Blood Partial Pressure O2 126 Arterial Blood Oxygen Content 18.6 Arterial Blood Carboxyhemoglobin 0.8 Arterial Blood Methemoglobin 0.6 Blood Gas Hemoglobin 13.5 Oxygen Delivery Device BiPAP Blood Gas Ventilator Setting [id number]/[id number] Blood Gas Inspired Oxygen 40 Date/Time Source Procedure Growth Status 06/10/17 04:15 Blood Peripheral Aerobic Blood Culture Pending Received 06/10/17 04:15 Blood Peripheral Anaerobic Blood Culture Pending Received Result Diagram: 06/10/1731406/10/17314 Caprini VTE Risk Assessment Caprini VTE Risk Assessment: Mod/High Risk (score >= 2) Caprini Risk Assessment Model Point Value = 1 Point Value = 2 Point Value = 3 Point Value = 5 Age 41-60 Minor surgery BMI > 25 kg/m2 Swollen legs Varicose veins or History of unexplained or recurrent spontaneous Oral contraceptives or hormone replacement Sepsis (< 1 month) Serious lung disease, including pneumonia (< 1 month) Abnormal pulmonary function Acute myocardial infarction Congestive heart failure (< 1 month) History of inflammatory bowel disease Medical patient at bed rest Age 61-74 Arthroscopic surgery Major open surgery (> 45 min) Laparoscopic surgery (> 45 min) Malignancy Confined to bed (> 72 hours) Immobilizing plaster cast Central venous access Age >= 75 History of VTE Family history of VTE Factor V Leiden Prothrombin [id number] Lupus anticoagulant Anticardiolipin antibodies Elevated serum homocysteine Heparin-induced thrombocytopenia Other congenital or acquired thrombophilia Stroke (< 1 month) Elective arthroplasty Hip, pelvis, or leg fracture Acute spinal cord injury (< 1 month) Prophylaxis Regimen Total Risk Factor Score Risk Level Prophylaxis Regimen 0-1 Low Early ambulation 2 Moderate Order ONE of the following: *Sequential Compression Device (SCD) *Heparin 5000 units SQ BID 3-4 Higher Order ONE of the following medications: *Heparin 5000 units SQ TID *Enoxaparin/Lovenox 40 mg SQ daily (WT < 150 kg, CrCl > 30 mL/min) *Enoxaparin/Lovenox 30 mg SQ daily (WT < 150 kg, CrCl > 10-29 mL/min) *Enoxaparin/Lovenox 30 mg SQ BID (WT < 150 kg, CrCl > 30 mL/min) AND/OR *Sequential Compression Device (SCD) 5 or more Highest Order ONE of the following medications: *Heparin 5000 units SQ TID (Preferred with Epidurals) *Enoxaparin/Lovenox 40 mg SQ daily (WT < 150 kg, CrCl > 30 mL/min) *Enoxaparin/Lovenox 30 mg SQ daily (WT < 150 kg, CrCl > 10-29 mL/min) *Enoxaparin/Lovenox 30 mg SQ BID (WT < 150 kg, CrCl > 30 mL/min) AND *Sequential Compression Device (SCD) Assessment and Plan Assessment and Plan A/P - acute on chronic hypercapnic respiratory failure / respiratory acidosis/ due to COPD exacerbation continue with BiPaP- repeat ABG stat- continue neb treatment; scheduled and prn - continue IV antibiotics and IV steroid. will consult pulmonary. -tachycardia- due to COPD exacerbation- monitor on telemetry. -leukocytosis with bandemia- continue antibiotics and monitor temps- CBC in am. -history of RA/ breast cancer- f/u as outpatient. -DVT prophylaxis; with subq Lovenox -consult PT when stable. patient with respiratory distress on BiPaP. close monitoring of the clinical response to BiPaP along with close f/u on her ABG. low threshold to transfer to ICU if her clinical condition doesn't improve with BiPaP and current care. intubation was d/w the patient and family and she agreed in case it becomes necessary. awaiting pulmonary evaluation. d/w the RN and RT. critical care time 35 min. Discussed Condition With the patient, her daughter and RN. Physician Certification 2 Midnight Certification Type: Admission for Inpatient Services Order for Inpatient Services The services are ordered in accordance with Medicare regulations or non- Medicare payer requirements, as applicable. In the case of services not specified as inpatient-only, they are appropriately provided as inpatient services in accordance with the 2-midnight benchmark. Estimated LOS (days): 3 days is the estimated time the patient will need to remain in the hospital, assuming treatment plan goals are met and no additional complications. Post-Hospital Plan: Not yet determined Problem Qualifiers (1) Hypercapnic respiratory failure: Qualified Codes: J96.22 - Acute and chronic respiratory failure with hypercapnia Nyla Giraldo MD Jun 10, 2017 08:45
[2017-06-10 09:22] LABS: BLOOD GAS BASE EXCESS 0.6 mmol/L (-2-2); BLOOD GAS CARBOXYHEMOGLOBIN 0.5 % (0-4); BLOOD GAS HCO3 27 mmol/L (22-26); BLOOD GAS METHEMOGLOBIN 1.3 % (0-2); BLOOD GAS O2 HGB SATURATION 96 % (90-100); BLOOD GAS OXYGEN CONTENT 19.6 Vol % (12.0-20.0); BLOOD GAS PCO2 66 mmHg (38-42); BLOOD GAS PO2 125 mmHg (61-120); BLOOD GAS TOTAL HGB 14.5 G/DL (12.0-16.0); TEMP CORR TO 98.6
[2017-06-10 09:24] LABS: CRITICAL VALUE YES; DRAW SITE LT RADIAL; NUMBER OF ARTERIAL PUNCTURES 1; OXYGEN DEVICE BIPAP; STAT YES; ULNAR PULSE PRESENT
[2017-06-10] MEDS: ENALAPRILAT 1.25 MG/ML VIAL IV PUSH PRN (09:46)
[2017-06-10] MEDS: SODIUM CHLORIDE 0.9% FLUSH 10 ML FLUSH IV FLUSH SCH ×2 (09:47→19:48)
[2017-06-10] MEDS ORDERED: RESP: ALBUTEROL 2.5 MG/IPRATROPIUM 0.5 MG NEB (SCH) INH (10:00)
[2017-06-10] MEDS: ALPRAZolam 0.25 MG TAB PO PRN ×2 (10:13→19:49)
[2017-06-10 11:43] LABS: BLOOD GAS BASE EXCESS 1.2 mmol/L (-2-2); BLOOD GAS CARBOXYHEMOGLOBIN 0.9 % (0-4); BLOOD GAS HCO3 28 mmol/L (22-26); BLOOD GAS METHEMOGLOBIN 0.9 % (0-2); BLOOD GAS O2 HGB SATURATION 92 % (90-100); BLOOD GAS OXYGEN CONTENT 18.1 Vol % (12.0-20.0); BLOOD GAS PCO2 67 mmHg (38-42); BLOOD GAS PO2 77 mmHg (61-120); CRITICAL VALUE YES; TEMP CORR TO 98.6
[2017-06-10 11:44] LABS: DRAW SITE LT RADIAL; FIO2 30 %; NUMBER OF ARTERIAL PUNCTURES 1; OXYGEN DEVICE BIPAP; STAT NO; ULNAR PULSE PRESENT
[2017-06-10 11:48] LABS: FIO2 40 %
--- NOTE | 2017-06-10 13:07 | HHI.PR ---
Addendum To [facility] Progress Not Reason for addendum: Additonal documentation (case was d/w ; patient will be transferred to ICU with cath lab radiology technician consult.) Nyla Giraldo MD Jun 10, 2017 13:07
[2017-06-10] MEDS ORDERED: DEXTROSE 50% IN WATER 50 ML VIAL(D50) IV PUSH PRN (13:30)
[2017-06-10] MEDS ORDERED: GLUCAGON 1 MG/ML VIAL OTHER PRN (13:30)
--- NOTE | 2017-06-10 14:24 | MB ---
cc: JENNIFER GRAYSON M.D. 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 The patient denies any constitutional symptoms. She was seen in the ED 2 days ago and was given prescription for prednisone and Zithromax and discharged home. Due to worsening of her symptoms see lactate to come back for further evaluation and management of her symptoms. The patient states that she just came back from a 1-week cruise. She denies any associated symptoms of chest pain, orthopnea, PND or edema of lower extremities. The patient denies any use of home oxygen or any prior history of intubations. She is on nebulizers and bronchodilators at home in addition to prednisone. She was placed on BiPap 12/05 with 40% FIO2 and her initial ABG showed acute hypercapnic respiratory acidosis with a pH of 7.26, CO2 60, pAO2 126, bicarb 26, sats 97%. The patient had multiple blood gases since then without any significant changes in her respiratory acidosis. Her laboratory data significant for leukocytosis with a WBC of 21.8 and lactic acid level was measured at 2.1. A chest x-ray on arrival showed no evidence of any acute disease. The patient was seen by Dr. Cardenas from a pulmonary service. She is being transferred to [facility] for closer observation. Critical care medicine was consulted for critical care and management. When seen the patient was sitting up in bed on BiPap 15/5 with 30% FIO2. PAST MEDICAL HISTORY: 1. Past medical history significant for Chronic obstructive pulmonary disease. 2. Breast cancer. 3. Rheumatoid arthritis. PAST SURGICAL HISTORY 1. Previous lumpectomy. 2. Previous back surgery. FAMILY HISTORY Mother had throat cancer. SOCIAL HISTORY Quit smoking 30 years ago. He use to smoke two packs per day. ALLERGIES SHELLFISH MEDICATIONS medications include 1. Prednisone 2. Paxil 3. Duoneb 4. Plaquenil REVIEW OF SYSTEMS As per history of present illness, Rest of the review of systems unremarkable. PHYSICAL EXAMINATION: IN GENERAL: A 76-year-old female sitting up in bed in mild distress on BiPap. VITAL SIGNS: Temperature 98.0, heart rate of 108, respiratory rate of 25, blood pressure 180/82, saturation 96% on a BiPap 10/5 30% FIO2. HEAD, EYES, EARS, NOSE, AND THROAT: Atraumatic, normocephalic pupil equal and reactive to accommodation, extraocular muscles intact. Conjunctivae pink. Nonicteric sclerae. Oral mucosa within normal limits. NECK: Supple. No jugular venous distention, adenopathy or thyromegaly. Trachea midline CARDIOVASCULAR SYSTEM: Tachycardiac normal S1-S2. No murmurs, rubs or gallops noted. PULMONARY: Pulmonary exam bilateral equal entry with few coarse breath sounds. Scattered wheezing. ABDOMEN: Soft, nontender, no distension. Positive bowel sounds. EXTREMITIES: No cyanosis, or edema. NEUROLOGIC: No focal sensory deficit. LABORATORY DATA Sodium 141, potassium 3.9, chloride 106, CO2 28, BUN 39, creatinine 0.67, glucose 179, lactic acid 2.1, AST 44, ALT 50, total bilirubin 0.5, alk phos 135, albumin 3.3, WBC 21.8, hemoglobin 15.4, hematocrit 45, platelet count 244. Chest x-ray and no evidence of acute cardiopulmonary disease. Electrocardiogram sinus tachycardia with heart rate of 112 beats per minute. IMPRESSION 1. Acute hypercapnic respiratory failure. 2. Chronic obstructive pulmonary disease exacerbation. 3. Leukocytosis with bandemia. 4. History of rheumatoid arthritis on Plaquenil. 5. Breast CA status post radiation treatment and lumpectomy. 6. Hypertension. RECOMMENDATIONS 1. Monitor neuro status closely and avoid any sedatives. 2. Continue with oxygen maintain sats above 92%. 3. Bronchodilators in the form of DuoNeb q. 4+ q. 2 p.r.n. for shortness of breath. 4. Continue with IV steroids. 5. The patient's on Solu-Medrol 60 mg IV q. six. 6. Noninvasive positive pressure ventilation. Will repeat ABG. if there is any worsening in respiratory status or clinical condition we will proceed with intubation and mechanical ventilation. 7. We will obtain a CT pulmonary angiogram of the chest to rule out pulmonary embolism. 8. Chronic lung disease in the seen in the setting of Plaquenil use. 9. Monitor heart rate and blood pressure closely and maintain MAP greater 65 mmHg. 10. She was given 3 liters of crystalloids earlier. Will place on maintenance fluids NS at 50 an hour. 11. Monitor renal function Is and Os and electrolyte replacement per protocol. 12. Keep n.p.o. for now until respiratory status improves and we will place on Pepcid 10 mg IV q. 12. 13. Continue with antibiotics in the form of Rocephin and Zithromax and monitor for signs infections which include fever and WBC. 14. Follow up on blood culture from earlier today. 15. Monitor CBC. 16. We will place on sliding scale insulin with Accu-Chek to maintain euglycemia as the patient is on IV steroids. 17. GI prophylaxis will place on Pepcid 10 mg q. 12 18. DVT prophylaxis with SCDs 19. We will continue with Lovenox 40 mg Subcu daily. 20. The case discussed with Dr. Cardenas from a pulmonary service. MD KAREN Hays/kian /1:30 PM /1:46 PM
[2017-06-10] MEDS: SODIUM CHLOR 0.9% 1000 ML INJ 1,000 ML IV SCH (15:10)
[2017-06-10] MEDS: FAMOTIDINE 20 MG/2 ML VIAL IV PUSH SCH ×2 (15:12→19:49)
[2017-06-10] MEDS: INSULIN NovoLIN REGULAR SUPPLEMENTAL SCALE SQ SCH ×2 (15:14→19:48)
[2017-06-10 15:16] LABS: BLOOD GAS BASE EXCESS 4.1 mmol/L (-2-2); BLOOD GAS CARBOXYHEMOGLOBIN 0.7 % (0-4); BLOOD GAS HCO3 29 mmol/L (22-26); BLOOD GAS METHEMOGLOBIN 1.1 % (0-2); BLOOD GAS O2 HGB SATURATION 95 % (90-100); BLOOD GAS OXYGEN CONTENT 18.2 Vol % (12.0-20.0); BLOOD GAS PCO2 55 mmHg (38-42); BLOOD GAS PO2 92 mmHg (61-120); BLOOD GAS TOTAL HGB 13.5 G/DL (12.0-16.0); TEMP CORR TO 98.6
[2017-06-10 15:18] LABS: CRITICAL VALUE YES; FIO2 30 %; OXYGEN DEVICE BIPAP; VENT SETTINGS IPAP15 EPAP5
[2017-06-10 15:19] LABS: DRAW SITE RT RADIAL; NUMBER OF ARTERIAL PUNCTURES 1; STAT NO; ULNAR PULSE PRESENT
[2017-06-10] MEDS: hydrALAZINE HCL 20 MG/ML VIAL IV PUSH PRN (15:37)
[2017-06-10 16:02] LABS: AUTOMATED NEUTROPHIL # 13.9 TH/MM3 (1.8-7.7); BASOPHIL % 0.1 % (0.0-2.0); HEMATOCRIT 42.7 % (35.0-46.0); LYMPH % 2.6 % (9.0-44.0); LYMPHOCYTE # 0.4 TH/MM3 (1.0-4.8); MEAN CELL VOLUME 97.5 FL (80.0-100.0); MEAN CORPUSCULAR HGB CONC 32.8 % (32.0-36.0); MONO % 9.9 % (0.0-8.0); NEUT % 87.4 % (16.0-70.0); PLATELET COUNT 189 TH/MM3 (150-450); RED BLOOD COUNT 4.38 MIL/MM3 (4.00-5.30); RED CELL DISTRIBUTION WIDTH 12.8 % (11.6-17.2); WHITE BLOOD COUNT 15.8 TH/MM3 (4.0-11.0)
[2017-06-10 16:07] LABS: HEMO FLAGS AUTO DIFF
[2017-06-10 16:23] LABS: ALKALINE PHOSPHATASE 114 U/L (45-117); ALT (GPT) 36 U/L (10-53); ANION GAP 5 MEQ/L (5-15); AST (GOT) 35 U/L (15-37); BICARBONATE 29.1 MEQ/L (21.0-32.0); BLOOD UREA NITROGEN 26 MG/DL (7-18); CHLORIDE 108 MEQ/L (98-107); GLOMERULAR FILTRATION RATE 129 ML/MIN (>89); POTASSIUM 4.2 MEQ/L (3.5-5.1); SODIUM (NA) 142 MEQ/L (136-145); TOTAL BILIRUBIN ADULT 0.4 MG/DL (0.2-1.0)
--- NOTE | 2017-06-10 16:36 | EKG ---
Date Performed: 06/10/2017 Time Performed: 03:10:07 PTAGE: 76 years EKG: SINUS TACHYCARDIA MODERATE ST DEPRESSION When compared to previous tracing, patient is now tachycardic. ABNORMAL ECG PREVIOUS TRACING : 08/19/2016 14.09 DOCTOR: Erika Rodriguez Interpretating Date/Time 06/10/2017 16:34:45
[2017-06-10 16:40] LABS: BANDS 7 % (0-6); METAMYELOCYTES 1 % (0-1); MYELOCYTES 2 % (0-0); NEUTROPHIL # MANUAL DIFF 14.2 TH/MM3 (1.8-7.7); POLYS (SEG NEUTROPHILS) 80 % (16-70); SCAN/DIFF FINAL DIFF MANUAL; WBC DIFF SAMPLE 100
[2017-06-10 16:41] LABS: PLATELET ESTIMATE SMEAR NORMAL (NORMAL); PLATELET MORPHOLOGY NORMAL (NORMAL)
--- NOTE | 2017-06-10 16:42 | EKG ---
Date Performed: 06/10/2017 Time Performed: 05:04:54 PTAGE: 76 years EKG: SUPRAVENTRICULAR TACHYCARDIA NONSPECIFIC ST & T-WAVE ABNORMALITY When compared to previous tracing, patients heart rate Has dramatically increased. ABNORMAL RHYTHM ECG PREVIOUS TRACING : 08/19/2016 14.09 DOCTOR: Erika Rodriguez Interpretating Date/Time 06/10/2017 16:41:33
[2017-06-10 16:43] LABS: TOXIC GRANULATION 1+ (NORMAL)
[2017-06-10] MEDS: DILTIAZEM HCL 60 MG TAB PO SCH ×2 (16:51→22:51)
[2017-06-10] MEDS: methylPREDNISolone SOD SUCC 125 MG/2 ML VIAL IV PUSH SCH (16:52)
--- NOTE | 2017-06-10 16:54 | MB ---
cc: MARILEE CHAN MD, R. STEVEN M.D. DATE OF CONSULTATION: 06/10/2017 REASON FOR CONSULTATION: Pulmonary consultation. HISTORY Ms. Nevarez is a 76-year-old white female with moderate to severe COPD with an asthmatic component. I have followed for several years now. Pulmonary functions were last done in October of this year which time she had an FEV-1 of 50%. She was a former smoker of about 40-50 pack-years she quit smoking and 1990. She has had a CT scan as recently as February of this year which revealed some mild nodularity. Nothing progressive nothing to suspect malignancy and no other infiltrative changes. She had recently taken a cruise with her . She became ill during a cruise and actually was treated and kept in the clinic area until [place] to [place]. They returned home and immediately came to the emergency room where she was seen treated with bronchodilators and antibiotics and sent home with prednisone and antibiotics. However over the next 24-48 hours she only got worse despite the fact that she had a nebulizer at home and uses Spiriva regularly. She came back to the hospital and was in respiratory failure. Placed on BiPap in the ER and admitted to the floor. Her initial blood gases on BiPap revealed a pH of 7.26, a pCO2 of 16, a pO2 of 126 on about 50%. Overnight she was fairly stable on the BiPap mask. Arterial blood gases were done again earlier today continued respiratory acidosis with a pCO2 in the 60s and a pH of seven to five. At the time of the interview. She was fairly comfortable at rest but breathing at 24-28 times per minute. She had no chest pain. She had cough with purulent sputum. A chest x-ray was done on admission which was clear. I last saw Ms. Nevarez in February at which time she was stable. PAST MEDICAL HISTORY Breast cancer in 2008 without recurrence Rheumatoid arthritis followed by Dr. Valdovinos since 1999. She is on Plaquenil and prednisone. No significant prior cardiovascular disease. She has had back surgery of the LS spine for degenerative disks two C-sections years ago She has had pneumonia in the past but never hospitalized. ALLERGIES TO MEDICATIONS IODINE. At home She is normally on 7.5 mg of prednisone with the Plaquenil for rheumatoid disease. She uses Spiriva inhaler Nebulizer p.r.n. Paxil Multiple vitamins. SOCIAL HISTORY She is living with her who is at the bedside today. They occasionally drink wine not to excess. Smoking years ago. No unusual animal exposures. Previous employment in clerical work and management. PHYSICAL EXAMINATION IN GENERAL/VITAL SIGNS: The patient is fairly comfortable at rest. She is on a BiPap machine but breathing at 24-28 times per minute O2 sats are 98%, pulse rate 120, blood pressure 160/80, but is high as 200/95. HEAD, EYES, EARS, NOSE, AND THROAT: Oral mucosa is not examined. she is on BiPAP. Neck veins are not grossly distended. LUNGS: She has diffuse wheezing in both lungs with prolonged expiration. HEART: Rapid heart rate but regular. ABDOMEN: Abdomen is obese but soft. EXTREMITIES: She has very minimal lower extremity edema. No calf tenderness. LABORATORY FINDINGS: White count is elevated 21,000, hemoglobin is 15. She has a left shift with 12 bands ABGs noted above. BUN is elevated 39, creatinine 0.6, random sugar 180. ASSESSMENT AND PLAN: Mrs. Nevarez is in respiratory failure acute hypercarbic with severe underlying COPD. She also has a marked elevation in white count, although chest x-ray is clear at lactate level is a bit elevated BUN is elevated, I am concerned she may be septic as well. She has received Rocephin and Zithromax. She is on aerosolized bronchodilators and steroids as well. In light of her condition and failure to improve arterial blood gases I have spoken to Dr. Rodriguez from critical care and asked them to transfer her to their service in the intensive care unit for careful monitoring at least the next 24-48 hours. She certainly is in a position when things could get worse here. I have spoken to her at the bedside as well. I am going to increase her aerosol treatments and be a dose of corticosteroids and she is on prednisone chronically. Further diagnostic and/or therapeutic intervention will depend on her on response and ongoing clinical course. R. MD YAZAN Wray/kian /3:20 PM /4:43 PM
[2017-06-10] MEDS ORDERED: IOHEXOL 350 MG/ML 10 ML VIAL (for RAD DIAG) IVCONTRAST ONE (17:32)
--- NOTE | 2017-06-10 17:57 | RADRPT ---
EXAM DATE/TIME: 06/10/2017 17:20 [facility] COMPARISON: No previous studies available for comparison. INDICATIONS : Shortness of breath past week. IV CONTRAST: 50 cc Omnipaque 350 (iohexol) IV RADIATION DOSE: 12.41 CTDIvol (mGy) MEDICAL HISTORY : Chronic obstructive pulmonary disease. Carcinoma, breast. SURGICAL HISTORY : section. ENCOUNTER: Initial ACUITY: 1 week PAIN SCALE: 0/10 LOCATION: Bilateral chest TECHNIQUE: Volumetric scanning of the chest was performed using a pulmonary embolism protocol MIP images were re constructed. Using automated exposure control and adjustment of the mA and/or kV according to patien t size, radiation dose was kept as low as reasonably achievable to obtain optimal diagnostic quality images. DICOM format image data is available electronically for review and comparison. Follow-up recommendations for detected pulmonary nodules are based at a minimum on nodule size and pa tient risk factors according to Fleischner Society Guidelines. FINDINGS: PULMONARY ARTERIES: No filling defects are seen in the pulmonary arteries through the segmental level. LUNGS: There is diffuse fairly symmetric miliary parenchymal lung disease. There is no evidence of lobar con solidation. PLEURAE: There is no pleural thickening or pleural effusion. MEDIASTINUM: Mild prominence of central mediastinal and bilateral hilar rajan tissue. Bilateral thyroid nodules. MUSCULOSKELETAL: Within normal limits for patient age. MISCELLANEOUS: The visualized upper abdominal organs demonstrate no acute abnormality. CONCLUSION: Diffuse miliary parenchymal lung disease. Potentially reactive central mediastinal and bilateral ramya are rajan prominence. Differential considerations would include atypical pneumonias, pneumoconiosis, sarcoidosis, metastatic disease. No evidence of pulmonary embolism. Rishi Palomino MD on June 10, 2017 at 17:47 Board Certified Radiologist. This report was verified electronically.
[2017-06-10] MEDS ORDERED: RESP: BUDESONIDE 0.25 MG/2 ML NEB NEB SCH (20:00)
[2017-06-11] VITALS (15 sets, daily range): BP systolic 134–184; BP diastolic 64–78; PULSE 67–85; RESP 21–32; TEMP 97.7–98.6; O2SAT 97–100
[2017-06-11] MEDS: methylPREDNISolone SOD SUCC 125 MG/2 ML VIAL IV PUSH SCH ×5 (00:02→22:19)
[2017-06-11] MEDS: INSULIN NovoLIN REGULAR SUPPLEMENTAL SCALE SQ SCH ×4 (00:05→19:30)
[2017-06-11] MEDS: cefTRIAXone INJ 1,000 MG in SODIUM CHLORIDE 0.9% INJ 100 ML IV SCH (03:50)
[2017-06-11] MEDS: ALPRAZolam 0.25 MG TAB PO PRN ×2 (03:50→14:43)
[2017-06-11] MEDS: RESP: ALBUTEROL 2.5 MG/IPRATROPIUM 0.5 MG NEB (SCH) INH ×6 (04:11→23:52)
[2017-06-11] MEDS: AZITHROMYCIN INJ 500 MG in SODIUM CHLOR 0.9% 250 ML INJ 250 ML IV SCH (04:37)
[2017-06-11] MEDS: DILTIAZEM HCL 60 MG TAB PO SCH ×4 (04:37→22:19)
[2017-06-11] MEDS: ENOXAPARIN SODIUM 40 MG/0.4 ML SYRINGE SQ SCH (04:38)
[2017-06-11 06:53] LABS: AUTOMATED NEUTROPHIL # 12.8 TH/MM3 (1.8-7.7); HEMATOCRIT 42.1 % (35.0-46.0); LYMPH % 3.2 % (9.0-44.0); LYMPHOCYTE # 0.5 TH/MM3 (1.0-4.8); MEAN CELL VOLUME 97.8 FL (80.0-100.0); MEAN CORPUSCULAR HEMOGLOBIN 32.8 PG (27.0-34.0); MEAN CORPUSCULAR HGB CONC 33.5 % (32.0-36.0); MONO % 8.7 % (0.0-8.0); NEUT % 88.1 % (16.0-70.0); PLATELET COUNT 194 TH/MM3 (150-450); RED CELL DISTRIBUTION WIDTH 12.9 % (11.6-17.2); WHITE BLOOD COUNT 14.6 TH/MM3 (4.0-11.0)
[2017-06-11 07:00] LABS: HEMO FLAGS AUTO DIFF
[2017-06-11 07:14] LABS: ANION GAP 6 MEQ/L (5-15); AST (GOT) 28 U/L (15-37); BICARBONATE 31.7 MEQ/L (21.0-32.0); BLOOD UREA NITROGEN 26 MG/DL (7-18); CHLORIDE 104 MEQ/L (98-107); GLOMERULAR FILTRATION RATE 135 ML/MIN (>89); SODIUM (NA) 142 MEQ/L (136-145)
[2017-06-11 07:17] LABS: ALKALINE PHOSPHATASE 115 U/L (45-117); ALT (GPT) 42 U/L (10-53); TOTAL BILIRUBIN ADULT 0.3 MG/DL (0.2-1.0)
[2017-06-11] MEDS: FAMOTIDINE 20 MG/2 ML VIAL IV PUSH SCH ×2 (08:18→20:20)
[2017-06-11] MEDS: SODIUM CHLORIDE 0.9% FLUSH 10 ML FLUSH IV FLUSH SCH ×2 (08:20→20:20)
[2017-06-11 08:53] LABS: BANDS 15 % (0-6); METAMYELOCYTES 1 % (0-1); MYELOCYTES 2 % (0-0); NEUTROPHIL # MANUAL DIFF 12.1 TH/MM3 (1.8-7.7); PLATELET ESTIMATE SMEAR NORMAL (NORMAL); PLATELET MORPHOLOGY NORMAL (NORMAL); POLYS (SEG NEUTROPHILS) 65 % (16-70); SCAN/DIFF FINAL DIFF MANUAL; WBC DIFF SAMPLE 100
[2017-06-11 08:54] LABS: TOXIC GRANULATION 1+ (NORMAL)
[2017-06-11] MEDS: TIOTROPIUM BROMIDE 18 MCG INH INH SCH (09:15)
[2017-06-11] MEDS: BUDESONIDE-FORMOTEROL 160/4.5 MCG INHALER INH SCH ×2 (09:15→20:20)
--- NOTE | 2017-06-11 11:37 | HHI.CCPN ---
Subjective Remarks/Hospital Course The patient is a 76-year-old female with a past medical history of chronic obstructive pulmonary disease being followed by Dr. Cardenas her outpatient publicity consultant, for breast cancer, rheumatoid arthritis on Plaquenil who presented to [facility] emergency department early this morning with a 1-week history of progressive worsening shortness of breath, associated with productive cough. The patient denies any constitutional symptoms. She was seen in the ED 2 days ago and was given prescription for prednisone and Zithromax and discharged home. Due to worsening of her symptoms see lactate to come back for further evaluation and management of her symptoms. The patient states that she just came back from a 1-week cruise. She denies any associated symptoms of chest pain, orthopnea, PND or edema of lower extremities. The patient denies any use of home oxygen or any prior history of intubations. She is on nebulizers and bronchodilators at home in addition to prednisone. She was placed on BiPAP 12 with 40% FIO2 and her initial ABG showed acute hypercapnic respiratory acidosis with a pH of 7.26, CO2 60, pAO2 126, bicarb 26, sats 97%. The patient had multiple blood gases since then without any significant changes in her respiratory acidosis. Her laboratory data significant for leukocytosis with a WBC of 21.8 and lactic acid level was measured at 2.1. A chest x-ray on arrival showed no evidence of any acute disease. The patient was seen by Dr. Cardenas from a pulmonary service. She is being transferred to [facility] for closer observation. Critical care medicine was consulted for critical care and management. When seen the patient was sitting up in bed on BiPap 15/5 with 30% FIO2. 06/11: Patient is currently off BiPAP slightly tachypneic. Bilateral wheezing on exam. Patient is able to talk almost in full sentences. She informs me that Dr. Cardenas has just rounded Objective Vital Signs Date Time Temp Pulse Resp B/P (MAP) Pulse Ox O2 Delivery O2 Flow Rate FiO2 06/11/17 10:00 75 06/11/17 09:51 97 Nasal Cannula 4.00 06/11/17 08:00 97.8 32 06/11/17 04:00 180/67 (104) 06/11/17 01:12 30 Intake and Output 06/11/17 06/11/17 06/12/17 08:00 16:00 00:00 Intake Total 770 ml Output Total 550 ml Balance 220 ml Result Diagram: 06/11/17 0614 06/11/17 0614 Other Results Laboratory Tests Test 06/10/17 11:35 06/10/17 15:10 Blood Gas Puncture Site LT RADIAL RT RADIAL Blood Gas Patient Temperature 98.6 98.6 Blood Gas HCO3 28 mmol/L (22-26) 29 mmol/L (22-26) Blood Gas Base Excess 1.2 mmol/L (-2-2) 4.1 mmol/L (-2-2) Blood Gas Oxygen Saturation 92 % (90-100) 95 % (90-100) Arterial Blood pH 7.24 (7.380-7.420) 7.35 (7.380-7.420) Arterial Blood Partial Pressure CO2 67 mmHg (38-42) 55 mmHg (38-42) Arterial Blood Partial Pressure O2 77 mmHg (61-120) 92 mmHg (61-120) Arterial Blood Oxygen Content 18.1 Vol % (12.0-20.0) 18.2 Vol % (12.0-20.0) Arterial Blood Carboxyhemoglobin 0.9 % (0-4) 0.7 % (0-4) Arterial Blood Methemoglobin 0.9 % (0-2) 1.1 % (0-2) Blood Gas Hemoglobin 14.0 G/DL (12.0-16.0) 13.5 G/DL (12.0-16.0) Oxygen Delivery Device BIPAP BIPAP Blood Gas Ventilator Setting IPAP15,EPAP5 IPAP15 EPAP5 Blood Gas Inspired Oxygen 30 % 30 % Objective Remarks GEN: Sitting up in the bed. Currently off BiPAP. HEENT: Oral mucosa is dry. Neck veins are not grossly distended. LUNGS: Diffuse wheezing in both lungs with prolonged expiration. Mild tachypnea HEART: Sinus tachycardia, no murmur ABDOMEN: Abdomen is obese but soft. EXTREMITIES: She has very minimal lower extremity edema. No calf tenderness. NEURO: Alert awake oriented no focal deficits Urinary Catheter: Yes Assessment to: Continue A/P Assessment and Plan IMPRESSION 1. Acute hypercapnic respiratory failure. 2. Chronic obstructive pulmonary disease exacerbation. 3. Leukocytosis with bandemia. 4. History of rheumatoid arthritis on Plaquenil. 5. Breast CA status post radiation treatment and lumpectomy. 6. Hypertension. RECOMMENDATIONS 1. Monitor neuro status closely and avoid any sedatives. 2. Continue with oxygen maintain sat above 92%. 3. Bronchodilators in the form of DuoNeb q. 4+ q. 2 p.r.n. for shortness of breath. 4. Continue with IV steroids. Pulm Dr. Cardenas following. 5. Noninvasive positive pressure ventilation. Will repeat ABG. if there is any worsening, will need intubation and mechanical ventilation. 6. CT pulmonary angiogram of the chest -diffuse miliary disease ? atypical pneumonia 7. Chronic lung disease in the seen in the setting of Plaquenil use. 8. Monitor heart rate and blood pressure closely and maintain MAP greater 65 mmHg. 9. NS at 50 an hour. 10. Monitor renal function Is and Os and electrolyte replacement per protocol. 11. Regular diet, Pepcid 10 mg IV q. 12. 12. Continue with Rocephin and Zithromax 13. Follow up on blood culture 14. GI prophylaxis will place on Pepcid 10 mg q. 12 15. DVT prophylaxis with SCDs Lovenox 40 mg Subcu daily. 16. The case discussed with Dr. Cardenas pulmonary service. Leatha Blackwell MD Jun 11, 2017 11:37
[2017-06-11] MEDS: SODIUM CHLOR 0.9% 1000 ML INJ 1,000 ML IV SCH (15:01)
[2017-06-12] VITALS (15 sets, daily range): BP systolic 153–174; BP diastolic 67–79; PULSE 68–79; RESP 20–37; TEMP 97.7–98.9; O2SAT 95–100
[2017-06-12] MEDS: ALPRAZolam 0.25 MG TAB PO PRN (00:25)
[2017-06-12] MEDS: INSULIN NovoLIN REGULAR SUPPLEMENTAL SCALE SQ SCH ×4 (00:35→19:30)
[2017-06-12] MEDS: RESP: ALBUTEROL 2.5 MG/IPRATROPIUM 0.5 MG NEB (SCH) INH ×5 (03:10→20:38)
[2017-06-12] MEDS: cefTRIAXone INJ 1,000 MG in SODIUM CHLORIDE 0.9% INJ 100 ML IV SCH (04:14)
[2017-06-12] MEDS: DILTIAZEM HCL 60 MG TAB PO SCH ×3 (04:14→16:35)
[2017-06-12] MEDS: AZITHROMYCIN INJ 500 MG in SODIUM CHLOR 0.9% 250 ML INJ 250 ML IV SCH (05:30)
[2017-06-12] MEDS: methylPREDNISolone SOD SUCC 125 MG/2 ML VIAL IV PUSH SCH ×3 (05:30→17:24)
[2017-06-12] MEDS: ENOXAPARIN SODIUM 40 MG/0.4 ML SYRINGE SQ SCH (05:30)
--- NOTE | 2017-06-12 05:46 | RADRPT ---
EXAM DATE/TIME: 06/12/2017 04:35 [facility] COMPARISON: CHEST SINGLE AP, June 10, 2017, 3:22. INDICATIONS : Shortness of breath, possible pulmonary disease. MEDICAL HISTORY : Chronic obstructive pulmonary disease. Carcinoma, breast. SURGICAL HISTORY : section. ENCOUNTER: Subsequent ACUITY: 1 week PAIN SCORE: 0/10 LOCATION: Bilateral chest FINDINGS: A single view of the chest demonstrates the lungs to be symmetrically aerated without evidence of mas s, infiltrate or effusion. The cardiomediastinal contours are unremarkable. Osseous structures are intact. There is a peripherally calcified mass with surrounding clips seen in the right lateral lower chest. This could be an area of fat necrosis and postoperative change. CONCLUSION: No acute disease. Rishi Mulligan MD on June 12, 2017 at 5:44 Board Certified Radiologist. This report was verified electronically.
[2017-06-12 07:01] LABS: AUTOMATED NEUTROPHIL # 13.7 TH/MM3 (1.8-7.7); BASOPHIL % 0.1 % (0.0-2.0); HEMATOCRIT 40.4 % (35.0-46.0); LYMPH % 2.3 % (9.0-44.0); LYMPHOCYTE # 0.3 TH/MM3 (1.0-4.8); MEAN CELL VOLUME 96.4 FL (80.0-100.0); MEAN CORPUSCULAR HEMOGLOBIN 32.8 PG (27.0-34.0); MONO % 7.5 % (0.0-8.0); NEUT % 90.1 % (16.0-70.0); PLATELET COUNT 174 TH/MM3 (150-450); RED BLOOD COUNT 4.19 MIL/MM3 (4.00-5.30); WHITE BLOOD COUNT 15.2 TH/MM3 (4.0-11.0)
[2017-06-12 07:07] LABS: ANION GAP 7 MEQ/L (5-15); AST (GOT) 22 U/L (15-37); BICARBONATE 32.2 MEQ/L (21.0-32.0); BLOOD UREA NITROGEN 25 MG/DL (7-18); CHLORIDE 100 MEQ/L (98-107); GLOMERULAR FILTRATION RATE 103 ML/MIN (>89); POTASSIUM 3.8 MEQ/L (3.5-5.1); SODIUM (NA) 139 MEQ/L (136-145)
[2017-06-12 07:09] LABS: ALT (GPT) 31 U/L (10-53)
[2017-06-12 07:11] LABS: ALKALINE PHOSPHATASE 107 U/L (45-117); TOTAL BILIRUBIN ADULT 0.3 MG/DL (0.2-1.0)
[2017-06-12 07:28] LABS: HEMO FLAGS AUTO DIFF
[2017-06-12 09:00] LABS: BANDS 11 % (0-6); METAMYELOCYTES 5 % (0-1); NEUTROPHIL # MANUAL DIFF 14.4 TH/MM3 (1.8-7.7); PLASMA CELLS 1 % (0-0); PLATELET ESTIMATE SMEAR NORMAL (NORMAL); PLATELET MORPHOLOGY NORMAL (NORMAL); POLYS (SEG NEUTROPHILS) 79 % (16-70); SCAN/DIFF FINAL DIFF MANUAL; WBC DIFF SAMPLE 100
[2017-06-12] MEDS: TIOTROPIUM BROMIDE 18 MCG INH INH SCH (09:11)
[2017-06-12] MEDS: BUDESONIDE-FORMOTEROL 160/4.5 MCG INHALER INH SCH ×2 (09:11→20:16)
[2017-06-12] MEDS: SODIUM CHLORIDE 0.9% FLUSH 10 ML FLUSH IV FLUSH SCH ×2 (09:12→20:16)
[2017-06-12] MEDS: FAMOTIDINE 20 MG/2 ML VIAL IV PUSH SCH (09:12)
--- NOTE | 2017-06-12 11:34 | HHI.CCPN ---
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 The patient denies any constitutional symptoms. She was seen in the ED 2 days ago and was given prescription for prednisone and Zithromax and discharged home. Due to worsening of her symptoms see lactate to come back for further evaluation and management of her symptoms. The patient states that she just came back from a 1-week cruise. She denies any associated symptoms of chest pain, orthopnea, PND or edema of lower extremities. The patient denies any use of home oxygen or any prior history of intubations. She is on nebulizers and bronchodilators at home in addition to prednisone. She was placed on BiPAP with 40% FIO2 and her initial ABG showed acute hypercapnic respiratory acidosis with a pH of 7.26, CO2 60, pAO2 126, bicarb 26, sats 97%. The patient had multiple blood gases since then without any significant changes in her respiratory acidosis. Her laboratory data significant for leukocytosis with a WBC of 21.8 and lactic acid level was measured at 2.1. A chest x-ray on arrival showed no evidence of any acute disease. The patient was seen by Dr. Cardenas from a pulmonary service. She is being transferred to [facility] for closer observation. Critical care medicine was consulted for critical care and management. When seen the patient was sitting up in bed on BiPap 15/5 with 30% FIO2. 06/11: Patient is currently off BiPAP slightly tachypneic. Bilateral wheezing on exam. Patient is able to talk almost in full sentences. She informs me that Dr. Cardenas has just rounded 06/12: Shortness of breath since improved subjectively, sitting up in chair able to talk in full sentences. Good oxygen saturation on nasal cannula chest x -ray no acute disease Objective Vital Signs Date Time Temp Pulse Resp B/P (MAP) Pulse Ox O2 Delivery O2 Flow Rate FiO2 06/12/17 10:00 72 06/12/17 08:48 97 Nasal Cannula 3.00 06/12/17 08:00 98.3 32 166/72 (103) 06/11/17 01:12 30 Intake and Output 06/12/17 06/12/17 06/13/17 08:00 16:00 00:00 Intake Total 1480 ml Balance 1480 ml Result Diagram: 06/12/17 0605 06/12/17 0605 Other Results Microbiology Date/Time Source Procedure Growth Status 06/11/17 16:00 Nasal Aspirate Influenza Types A,B Antigen (MICHAEL) - Final NEGATIVE FOR FLU A AND B ANTIGEN.... Complete 06/11/17 17:30 Urine Random Urine Streptococcus pneumoniae Antigen (M - Final PRESUMPTIVE NEGATIVE FOR STREPTOCOCCU... Complete Objective Remarks GEN: Sitting up in chair on NC HEENT: Oral mucosa is dry. Neck veins are not grossly distended. LUNGS: Mild expiratory wheezing and few coarse crackles. HEART: S1-S2 normal no murmurs ABDOMEN: Abdomen is obese but soft. EXTREMITIES: Minimal lower extremity edema. No calf tenderness. NEURO: Alert awake oriented no focal deficits A/P Assessment and Plan IMPRESSION Acute hypercapnic respiratory failure. Chronic obstructive pulmonary disease exacerbation. Leukocytosis with bandemia. History of rheumatoid arthritis on Plaquenil. Breast CA status post radiation treatment and lumpectomy. Hypertension. History of recent retinal detachment surgery RECOMMENDATIONS 1. Monitor neuro status closely and avoid any sedatives. 2. Continue with oxygen maintain sat above 92%. 3. DuoNeb q. 4+ q. 2 p.r.n. for shortness of breath. 4. Continue with IV steroids. Pulm Dr. Cardenas 5. Noninvasive positive pressure ventilation as needed. 6. CT pulmonary angiogram of the chest -diffuse miliary disease ? atypical pneumonia vs ILD RA associated. Defer to pulmonology 7. Chronic lung disease in the seen in the setting of Plaquenil use. 8. Monitor heart rate and blood pressure closely and maintain MAP greater 65 mmHg. 9. NS at 50 an hour- DC 10. Monitor renal function Is and Os and electrolyte replacement per protocol. 11. Regular diet, Pepcid 10 mg IV q. 12- change to PO 12. Continue with Rocephin and Zithromax 13. DVT prophylaxis with SCDs Lovenox 40 mg Subcu daily. 14. The case discussed with Dr. Cardenas pulmonary service. Level 2. Transfer to Med Surg. Patient is under the service of Dr. Sahu; I have discussed with him to take over tomorrow Leatha Blackwell MD Jun 12, 2017 11:34
[2017-06-12] MEDS: FAMOTIDINE 20 MG TAB PO SCH (20:17)
[2017-06-13] VITALS (12 sets, daily range): BP systolic 121–195; BP diastolic 67–85; PULSE 78–91; RESP 18–20; TEMP 96.4–98.3; O2SAT 92–96
[2017-06-13] MEDS: DILTIAZEM HCL 60 MG TAB PO SCH ×5 (00:43→21:46)
[2017-06-13] MEDS: INSULIN NovoLIN REGULAR SUPPLEMENTAL SCALE SQ SCH ×4 (00:43→19:30)
[2017-06-13] MEDS: methylPREDNISolone SOD SUCC 125 MG/2 ML VIAL IV PUSH SCH ×4 (00:43→17:11)
[2017-06-13] MEDS: RESP: ALBUTEROL 2.5 MG/IPRATROPIUM 0.5 MG NEB (SCH) INH ×6 (00:55→20:07)
[2017-06-13] MEDS: cefTRIAXone INJ 1,000 MG in SODIUM CHLORIDE 0.9% INJ 100 ML IV SCH (04:25)
[2017-06-13] MEDS: AZITHROMYCIN INJ 500 MG in SODIUM CHLOR 0.9% 250 ML INJ 250 ML IV SCH (04:27)
[2017-06-13] MEDS: ENOXAPARIN SODIUM 40 MG/0.4 ML SYRINGE SQ SCH (04:30)
[2017-06-13] MEDS: ALPRAZolam 0.25 MG TAB PO PRN ×2 (04:31→21:37)
[2017-06-13] MEDS: ENALAPRILAT 1.25 MG/ML VIAL IV PUSH PRN (04:31)
[2017-06-13] MEDS: hydrALAZINE HCL 20 MG/ML VIAL IV PUSH PRN (06:55)
[2017-06-13] MEDS: TIOTROPIUM BROMIDE 18 MCG INH INH SCH (09:00)
[2017-06-13] MEDS: BUDESONIDE-FORMOTEROL 160/4.5 MCG INHALER INH SCH ×2 (09:00→21:39)
[2017-06-13] MEDS ORDERED: SODIUM CHLOR 0.9% 250 ML INJ 250 ML IV ONE (10:15)
[2017-06-13] MEDS: FAMOTIDINE 20 MG TAB PO SCH ×2 (10:18→21:37)
[2017-06-13] MEDS: SODIUM CHLORIDE 0.9% FLUSH 10 ML FLUSH IV FLUSH SCH ×2 (10:18→21:00)
--- NOTE | 2017-06-13 18:29 | HHI.PR ---
Subjective Remarks as per RN patient is having periods of confusion. afebrile c/o edema in lower extremities and thinks that it is because she was sitiing with her feet down. Objective Vitals Vital Signs Date Time Temp Pulse Resp B/P (MAP) Pulse Ox O2 Delivery O2 Flow Rate FiO2 06/13/17 12:08 97.4 84 19 149/67 (94) 95 06/13/17 08:08 97.4 85 19 121/68 (85) 95 06/13/17 08:00 95 Nasal Cannula 2.00 06/13/17 07:54 96 Nasal Cannula 2.00 06/13/17 06:00 172/80 (110) 06/13/17 04:00 98.3 78 20 195/84 (121) 96 06/13/17 02:00 90 06/13/17 02:00 84 06/13/17 00:00 98.0 86 20 163/72 (102) 92 06/13/17 00:00 86 06/12/17 22:00 79 06/12/17 20:39 99 Nasal Cannula 3.00 06/12/17 20:00 73 06/12/17 20:00 98.9 74 20 169/77 (107) 100 06/12/17 20:00 100 Nasal Cannula 1.00 I/O 06/12/17 06/12/17 06/12/17 06/13/17 06/13/17 06/13/17 07:00 15:00 23:00 07:00 15:00 23:00 Intake Total 1480 ml 207 ml 480 ml 350 ml 250 ml Output Total 600 ml Balance 1480 ml 207 ml -120 ml 350 ml 250 ml Intake Oral 480 ml 480 ml IV Total 1000 ml 207 ml 350 ml 250 ml Output Urine Total 600 ml # Voids 2 2 Result Diagram: 06/12/17 0605 06/12/17 0605 Imaging Last Impressions Chest X-Ray 06/12/17 0600 Signed Impressions: Service Date/Time: May 04:35 - CONCLUSION: No acute disease. Rishi Mulligan MD CT Angiography 06/10/17 0000 Signed Impressions: Service Date/Time: Saturday, June 10, 2017 17:20 - CONCLUSION: Diffuse miliary parenchymal lung disease. Potentially reactive central mediastinal and bilateral ramya are rajan prominence. Differential considerations would include atypical pneumonias, pneumoconiosis, sarcoidosis, metastatic disease. No evidence of pulmonary embolism. Rishi Palomino MD Objective Remarks GEN: Lying in bed, no respiratory distress. HEENT: Oral mucosa is dry. Neck veins are not grossly distended. LUNGS: Mild expiratory wheezing and few coarse crackles. HEART: S1-S2 normal no murmurs ABDOMEN: Abdomen is obese but soft. EXTREMITIES: +2 edema in lower extremities. NEURO: Alert awake oriented no focal deficits A/P Problem List: (1) COPD exacerbation ICD Code: J44.1 - Chronic obstructive pulmonary disease with (acute) exacerbation Status: Acute (2) Hypercapnic respiratory failure ICD Code: J96.92 - Respiratory failure, unspecified with hypercapnia Assessment and Plan IMPRESSION Acute hypercapnic respiratory failure. Chronic obstructive pulmonary disease exacerbation. Leukocytosis with bandemia. History of rheumatoid arthritis on Plaquenil. Breast CA status post radiation treatment and lumpectomy. Hypertension. History of recent retinal detachment surgery RECOMMENDATIONS 1. Monitor neuro status closely and avoid any sedatives. 2. Continue with oxygen maintain sat above 92%. 3. DuoNeb q. 4+ q. 2 p.r.n. for shortness of breath. 4. Continue with IV steroids. Pulm Dr. Cardenas 5. Noninvasive positive pressure ventilation as needed. 6. CT pulmonary angiogram of the chest -diffuse miliary disease ? atypical pneumonia vs ILD RA associated. Defer to pulmonology 7. Chronic lung disease in the seen in the setting of Plaquenil use. 8. Monitor heart rate and blood pressure closely and maintain MAP greater 65 mmHg. 9. NS at 50 an hour- DC 10. Monitor renal function Is and Os and electrolyte replacement per protocol. 11. Regular diet, Pepcid 10 mg IV q. 12- change to PO 12. Continue with Rocephin and Zithromax 13. DVT prophylaxis with SCDs Lovenox 40 mg Subcu daily. 14. The case discussed with Dr. Cardenas pulmonary service. 15. Patient with BL lower extremity edema. Will start patient on Iv lasix, monitor I's and O's, daily weight. Problem Qualifiers (1) Hypercapnic respiratory failure: Qualified Codes: J96.22 - Acute and chronic respiratory failure with hypercapnia Dawit Hernandez MD Jun 13, 2017 18:29
[2017-06-13] MEDS ORDERED: ZOLPIDEM TARTRATE 5 MG TAB PO PRN (18:30)
[2017-06-13] MEDS: FUROSEMIDE 40 MG/4 ML VIAL IV PUSH SCH (18:55)
[2017-06-14] VITALS (13 sets, daily range): BP systolic 126–168; BP diastolic 65–74; PULSE 76–97; RESP 18–20; TEMP 97.3–98.7; O2SAT 92–98
[2017-06-14] MEDS: methylPREDNISolone SOD SUCC 125 MG/2 ML VIAL IV PUSH SCH ×5 (00:19→23:21)
[2017-06-14] MEDS: INSULIN NovoLIN REGULAR SUPPLEMENTAL SCALE SQ SCH ×4 (00:19→21:31)
[2017-06-14] MEDS: RESP: ALBUTEROL 2.5 MG/IPRATROPIUM 0.5 MG NEB (SCH) INH ×5 (00:34→15:11)
[2017-06-14] MEDS: DILTIAZEM HCL 60 MG TAB PO SCH ×4 (04:40→22:31)
[2017-06-14] MEDS: ENOXAPARIN SODIUM 40 MG/0.4 ML SYRINGE SQ SCH (04:40)
[2017-06-14] MEDS: cefTRIAXone INJ 1,000 MG in SODIUM CHLORIDE 0.9% INJ 100 ML IV SCH (04:44)
[2017-06-14] MEDS: AZITHROMYCIN INJ 500 MG in SODIUM CHLOR 0.9% 250 ML INJ 250 ML IV SCH (04:48)
[2017-06-14] MEDS ORDERED: LORazepam 2 MG/ML VIAL IV PUSH ONE (05:00)
[2017-06-14 05:54] LABS: BLOOD GAS BASE EXCESS 14.6 mmol/L (-2-2); BLOOD GAS CARBOXYHEMOGLOBIN 1.2 % (0-4); BLOOD GAS HCO3 39 mmol/L (22-26); BLOOD GAS METHEMOGLOBIN 0.8 % (0-2); BLOOD GAS O2 HGB SATURATION 94 % (90-100); BLOOD GAS OXYGEN CONTENT 19.1 Vol % (12.0-20.0); BLOOD GAS PCO2 54 mmHg (38-42); BLOOD GAS PO2 79 mmHg (61-120); BLOOD GAS TOTAL HGB 14.4 G/DL (12.0-16.0); TEMP CORR TO 98.6
[2017-06-14 05:56] LABS: CRITICAL VALUE YES; DRAW SITE LT RADIAL; LITER FLOW 2 L/M; NUMBER OF ARTERIAL PUNCTURES 1; OXYGEN DEVICE NASAL CANNULA; STAT NO; ULNAR PULSE PRESENT
[2017-06-14] MEDS ORDERED: LORazepam 2 MG/ML VIAL IV PUSH PRN (06:15)
[2017-06-14] MEDS: ALPRAZolam 0.25 MG TAB PO PRN (06:51)
[2017-06-14] MEDS: TIOTROPIUM BROMIDE 18 MCG INH INH SCH (09:00)
[2017-06-14] MEDS: BUDESONIDE-FORMOTEROL 160/4.5 MCG INHALER INH SCH ×2 (09:00→20:52)
[2017-06-14] MEDS: FAMOTIDINE 20 MG TAB PO SCH ×2 (09:00→20:42)
[2017-06-14] MEDS: FUROSEMIDE 40 MG/4 ML VIAL IV PUSH SCH (09:49)
[2017-06-14] MEDS: SODIUM CHLORIDE 0.9% FLUSH 10 ML FLUSH IV FLUSH SCH ×2 (09:49→20:42)
[2017-06-14] MEDS ORDERED: PRED1SUS LEFT EYE (11:20)
[2017-06-14] MEDS ORDERED: BRIM0.2S4 LEFT EYE (11:20)
[2017-06-14] MEDS ORDERED: ENALAPRILAT 1.25 MG/ML VIAL IV PUSH PRN (12:30)
[2017-06-14] MEDS ORDERED: HALOPERIDOL LACTATE 5 MG/ML AMP IV PUSH PRN (13:15)
[2017-06-14 15:41] LABS: HEMATOCRIT 42.1 % (35.0-46.0); MEAN CELL VOLUME 96.1 FL (80.0-100.0); MEAN CORPUSCULAR HEMOGLOBIN 32.4 PG (27.0-34.0); MEAN CORPUSCULAR HGB CONC 33.8 % (32.0-36.0); PLATELET COUNT 175 TH/MM3 (150-450); RED BLOOD COUNT 4.38 MIL/MM3 (4.00-5.30); RED CELL DISTRIBUTION WIDTH 12.9 % (11.6-17.2); WHITE BLOOD COUNT 15.4 TH/MM3 (4.0-11.0)
--- NOTE | 2017-06-14 15:42 | HHI.PR ---
Subjective Remarks as per RN very agitated overnight - received total of 1 mg of ativan, ambien Patient lethargic Objective Vitals Vital Signs Date Time Temp Pulse Resp B/P (MAP) Pulse Ox O2 Delivery O2 Flow Rate FiO2 06/14/17 12:00 85 06/14/17 12:00 98.7 81 20 164/70 (101) 96 06/14/17 08:08 97.9 78 20 127/72 (90) 98 06/14/17 08:00 76 06/14/17 07:31 98 Nasal Cannula 2.00 06/14/17 06:00 97 06/14/17 04:00 98.1 79 20 126/73 (90) 93 06/14/17 00:00 97.3 85 18 146/74 (98) 94 06/13/17 20:15 96 Nasal Cannula 2.00 06/13/17 20:00 96.4 79 18 160/84 (109) 96 06/13/17 16:08 98.3 82 19 176/85 (115) 96 06/13/17 15:57 91 I/O 06/13/17 06/13/17 06/13/17 06/14/17 06/14/17 06/14/17 07:00 15:00 23:00 07:00 15:00 23:00 Intake Total 350 ml 250 ml 380 ml 100 ml Output Total 1200 ml Balance 350 ml 250 ml 380 ml -1100 ml Intake Oral 380 ml IV Total 350 ml 250 ml 100 ml Output Urine Total 1200 ml # Voids 4 2 # Bowel Movements 1 Result Diagram: 06/12/17 0605 06/12/17 0605 Imaging Last Impressions Chest X-Ray 06/12/17 0600 Signed Impressions: Service Date/Time: May 04:35 - CONCLUSION: No acute disease. Rishi Mulligan MD CT Angiography 06/10/17 0000 Signed Impressions: Service Date/Time: Saturday, June 10, 2017 17:20 - CONCLUSION: Diffuse miliary parenchymal lung disease. Potentially reactive central mediastinal and bilateral ramya are rajan prominence. Differential considerations would include atypical pneumonias, pneumoconiosis, sarcoidosis, metastatic disease. No evidence of pulmonary embolism. Rishi Palomino MD Objective Remarks GEN: Lying in bed, lethargic. HEENT: Oral mucosa is dry. Neck veins are not grossly distended. LUNGS: Mild expiratory wheezing and few coarse crackles. HEART: S1-S2 normal no murmurs ABDOMEN: Abdomen is obese but soft. EXTREMITIES: +2 edema in lower extremities. NEURO: ALethargic but awakens upon stimulation. moves all extremities. Medications and IVs Current Medications Medications (Trade) Dose Ordered Sig/Digna Route Start Time Stop Time Status Last Admin Ceftriaxone Sodium 1000 mg/ Sodium Chloride 100 ml @ 200 mls/hr Q24H IV 06/11/17 04:30 06/14/17 04:44 Azithromycin 500 mg/Sodium Chloride 250 ml @ 250 mls/hr Q24H IV 06/11/17 05:30 06/14/17 04:48 (NS Flush) 2 ml BID IV FLUSH 06/10/17 09:00 06/14/17 09:49 (NS Flush) 2 ml UNSCH PRN IV FLUSH 06/10/17 05:30 (Albuterol Neb) 2.5 mg Q2HR NEB PRN INH 06/10/17 05:30 (Lovenox Inj) 40 mg Q24H SQ 06/10/17 05:30 06/14/17 04:40 (Duoneb Neb) 1 ampule Q4HR NEB INH 06/10/17 16:00 06/14/17 15:11 (SoluMEDROL INJ) 60 mg Q6HR IV PUSH 06/10/17 18:00 06/14/17 12:53 (D50w (Vial) Inj) 50 ml UNSCH PRN IV PUSH 06/10/17 13:30 (Glucagon Inj) 1 mg UNSCH PRN OTHER 06/10/17 13:30 (NovoLIN R SUPPLEMENTAL SCALE) 1 Q6H SQ 06/10/17 13:30 06/14/17 13:15 (Apresoline Inj) 10 mg Q6H PRN IV PUSH 06/10/17 13:30 06/13/17 06:55 (Cardizem) 60 mg Q6H PO 06/10/17 17:00 06/14/17 04:40 (Symbicort 160-4.5 Inh) 2 puff Q12HR INH 06/11/17 09:15 06/13/17 21:39 (Spiriva Inh) 18 mcg DAILY INH 06/11/17 09:15 06/12/17 09:11 (Pepcid) 20 mg BID PO 06/12/17 21:00 06/13/17 21:37 (Lasix Inj) 40 mg DAILY IV PUSH 06/13/17 18:30 06/14/17 09:49 (Vasotec Inj) 1.25 mg Q6H PRN IV PUSH 06/14/17 12:30 06/14/17 13:15 (SEROquel) 50 mg HS PO 06/14/17 21:00 (Haldol Inj) 2 mg Q6HR PRN IV PUSH 06/14/17 13:15 A/P Problem List: (1) COPD exacerbation ICD Code: J44.1 - Chronic obstructive pulmonary disease with (acute) exacerbation Status: Acute (2) Hypercapnic respiratory failure ICD Code: J96.92 - Respiratory failure, unspecified with hypercapnia (3) Toxic encephalopathy ICD Code: G92 - Toxic encephalopathy (4) Bilateral lower extremity edema ICD Code: R60.0 - Localized edema Assessment and Plan IMPRESSION Acute hypercapnic respiratory failure. Chronic obstructive pulmonary disease exacerbation. Leukocytosis with bandemia. History of rheumatoid arthritis on Plaquenil. Breast CA status post radiation treatment and lumpectomy. Hypertension. History of recent retinal detachment surgery Encephalopathy RECOMMENDATIONS 1. Monitor neuro status closely and avoid any sedatives. 2. Continue with oxygen maintain sat above 92%. 3. DuoNeb q. 4+ q. 2 p.r.n. for shortness of breath. 4. Continue with IV steroids. Pulm Dr. Cardenas 5. Noninvasive positive pressure ventilation as needed. 6. CT pulmonary angiogram of the chest -diffuse miliary disease ? atypical pneumonia vs ILD RA associated. Defer to pulmonology 7. Chronic lung disease in the seen in the setting of Plaquenil use. 8. Monitor heart rate and blood pressure closely and maintain MAP greater 65 mmHg. 9. NS at 50 an hour- DC 10. Monitor renal function Is and Os and electrolyte replacement per protocol. 11. Regular diet, Pepcid 10 mg IV q. 12- change to PO 12. Continue with Rocephin and Zithromax 13. DVT prophylaxis with SCDs Lovenox 40 mg Subcu daily. 15. 12/2 Patient with BL lower extremity edema. Likely due to fluid overload. CXR no acute disease. Continue IV lasix, monitor I's and O's, daily weight. Check 2 D echo 16. 12/2 Likely lethargy and with toxic encephalopathy due to benzodiazepine use. DC Benzodiazepines. Will Rx Seroquel at bedtime and Haldol as needed for agitation. Avoid Benzodiazepine use. Discharge Planning Pending resolution of encephalopathy and clinical improvement. Pending 2 D echo. Problem Qualifiers (1) Hypercapnic respiratory failure: Qualified Codes: J96.22 - Acute and chronic respiratory failure with hypercapnia Dawit Hernandez MD Jun 14, 2017 15:42
[2017-06-14 15:43] LABS: HEMO FLAGS AUTO DIFF
[2017-06-14 16:01] LABS: ALKALINE PHOSPHATASE 88 U/L (45-117); ALT (GPT) 34 U/L (10-53); ANION GAP 4 MEQ/L (5-15); AST (GOT) 28 U/L (15-37); BICARBONATE 41.9 MEQ/L (21.0-32.0); BLOOD UREA NITROGEN 21 MG/DL (7-18); CHLORIDE 95 MEQ/L (98-107); GLOMERULAR FILTRATION RATE 105 ML/MIN (>89); SODIUM (NA) 141 MEQ/L (136-145); TOTAL BILIRUBIN ADULT 0.6 MG/DL (0.2-1.0)
[2017-06-14 16:15] LABS: BANDS 7 % (0-6); NEUTROPHIL # MANUAL DIFF 14.6 TH/MM3 (1.8-7.7); PLATELET ESTIMATE SMEAR NORMAL (NORMAL); PLATELET MORPHOLOGY NORMAL (NORMAL); POLYS (SEG NEUTROPHILS) 88 % (16-70); TOXIC GRANULATION 1+ (NORMAL); WBC DIFF SAMPLE 100
[2017-06-14 16:16] LABS: SCAN/DIFF FINAL DIFF MANUAL
[2017-06-14 16:27] LABS: POTASSIUM 2.8 MEQ/L (3.5-5.1)
[2017-06-14] MEDS ORDERED: POTASSIUM CHLORIDE 20 MEQ CONTROLLED RELEASE TAB PO ONE (16:45)
[2017-06-14] MEDS ORDERED: SODIUM CHLOR 0.9% 250 ML INJ 250 ML IV ONE (18:00)
[2017-06-14] MEDS: POTASSIUM CHLOR 20 MEQ PREMIX 100 ML IV SCH ×2 (18:21→20:42)
[2017-06-14] MEDS: QUEtiapine FUMARATE 100 MG TAB PO SCH (20:42)
[2017-06-15] VITALS (10 sets, daily range): BP systolic 142–168; BP diastolic 66–86; PULSE 71–84; RESP 18–20; TEMP 97.3–98.7; O2SAT 93–97
[2017-06-15] MEDS: INSULIN NovoLIN REGULAR SUPPLEMENTAL SCALE SQ SCH ×4 (01:30→20:47)
[2017-06-15] MEDS: ENOXAPARIN SODIUM 40 MG/0.4 ML SYRINGE SQ SCH (05:25)
[2017-06-15] MEDS: DILTIAZEM HCL 60 MG TAB PO SCH ×4 (05:25→22:30)
[2017-06-15] MEDS: cefTRIAXone INJ 1,000 MG in SODIUM CHLORIDE 0.9% INJ 100 ML IV SCH (05:25)
[2017-06-15] MEDS: methylPREDNISolone SOD SUCC 125 MG/2 ML VIAL IV PUSH SCH ×2 (05:25→12:31)
[2017-06-15] MEDS: AZITHROMYCIN INJ 500 MG in SODIUM CHLOR 0.9% 250 ML INJ 250 ML IV SCH (06:10)
[2017-06-15] MEDS: SODIUM CHLORIDE 0.9% FLUSH 10 ML FLUSH IV FLUSH SCH ×2 (09:31→20:50)
[2017-06-15] MEDS: FAMOTIDINE 20 MG TAB PO SCH ×2 (09:31→20:47)
[2017-06-15] MEDS: FUROSEMIDE 40 MG/4 ML VIAL IV PUSH SCH (09:31)
[2017-06-15] MEDS: TIOTROPIUM BROMIDE 18 MCG INH INH SCH (09:32)
[2017-06-15] MEDS: BUDESONIDE-FORMOTEROL 160/4.5 MCG INHALER INH SCH ×2 (09:32→20:50)
[2017-06-15 14:54] LABS: HEMATOCRIT 41.3 % (35.0-46.0); MEAN CELL VOLUME 95.9 FL (80.0-100.0); MEAN CORPUSCULAR HGB CONC 33.3 % (32.0-36.0); PLATELET COUNT 142 TH/MM3 (150-450); RED BLOOD COUNT 4.31 MIL/MM3 (4.00-5.30); RED CELL DISTRIBUTION WIDTH 12.7 % (11.6-17.2); REVIEW FLAG FINAL
[2017-06-15 15:14] LABS: BICARBONATE 39.8 MEQ/L (21.0-32.0); POTASSIUM 3.6 MEQ/L (3.5-5.1)
--- NOTE | 2017-06-15 16:28 | HHI.PR ---
Subjective Remarks Patient feels much better. Denies chest pain or shortness of breath. As per family member who is at bedside, the patient is cognitively better today , eating better. Afebrile. Noted to have elevated blood pressure. Objective Vitals Vital Signs Date Time Temp Pulse Resp B/P (MAP) Pulse Ox O2 Delivery O2 Flow Rate FiO2 06/15/17 12:00 78 06/15/17 12:00 97.8 82 18 168/86 (113) 94 06/15/17 08:00 78 06/15/17 08:00 Nasal Cannula 2.00 06/15/17 08:00 97.3 84 20 163/68 (99) 93 06/15/17 04:01 74 06/15/17 04:00 Nasal Cannula 2.00 06/15/17 04:00 97.4 75 18 164/77 (106) 95 06/15/17 03:00 95 Nasal Cannula 2.00 06/15/17 01:30 96 30 06/15/17 00:00 Bi-Pap 30 06/15/17 00:00 97.9 83 20 160/ 94 06/14/17 23:58 87 06/14/17 21:03 93 Nasal Cannula 3.00 06/14/17 20:00 97.9 83 20 136/65 (88) 94 06/14/17 20:00 Nasal Cannula 2.00 06/14/17 19:48 84 I/O 06/14/17 06/14/17 06/14/17 06/15/17 06/15/17 06/15/17 07:00 15:00 23:00 07:00 15:00 23:00 Intake Total 100 ml 320 ml 374 ml 250 ml Output Total 1200 ml Balance -1100 ml 320 ml 374 ml 250 ml Intake Oral 120 ml 24 ml IV Total 100 ml 200 ml 350 ml 250 ml Output Urine Total 1200 ml # Voids 2 3 2 # Bowel Movements 0 0 Result Diagram: 06/15/17 1422 06/15/17 1422 Imaging Last Impressions Chest X-Ray 06/12/17 0600 Signed Impressions: Service Date/Time: May 04:35 - CONCLUSION: No acute disease. Rishi Mulligan MD CT Angiography 06/10/17 0000 Signed Impressions: Service Date/Time: Saturday, June 10, 2017 17:20 - CONCLUSION: Diffuse miliary parenchymal lung disease. Potentially reactive central mediastinal and bilateral ramya are rajan prominence. Differential considerations would include atypical pneumonias, pneumoconiosis, sarcoidosis, metastatic disease. No evidence of pulmonary embolism. Rishi Palomino MD Objective Remarks GEN: Lying in bed, lethargic. HEENT: Oral mucosa is dry. Neck veins are not grossly distended. LUNGS: Mild expiratory wheezing and few coarse crackles. HEART: S1-S2 normal no murmurs ABDOMEN: Abdomen is obese but soft. EXTREMITIES: +2 edema in lower extremities. NEURO: ALethargic but awakens upon stimulation. moves all extremities. Medications and IVs Current Medications Medications (Trade) Dose Ordered Sig/Digna Route Start Time Stop Time Status Last Admin Ceftriaxone Sodium 1000 mg/ Sodium Chloride 100 ml @ 200 mls/hr Q24H IV 06/11/17 04:30 06/15/17 05:25 Azithromycin 500 mg/Sodium Chloride 250 ml @ 250 mls/hr Q24H IV 06/11/17 05:30 06/15/17 06:10 (NS Flush) 2 ml BID IV FLUSH 06/10/17 09:00 06/15/17 09:31 (NS Flush) 2 ml UNSCH PRN IV FLUSH 06/10/17 05:30 06/15/17 05:26 (Albuterol Neb) 2.5 mg Q2HR NEB PRN INH 06/10/17 05:30 06/14/17 21:01 (Lovenox Inj) 40 mg Q24H SQ 06/10/17 05:30 06/15/17 05:25 (SoluMEDROL INJ) 60 mg Q6HR IV PUSH 06/10/17 18:00 06/15/17 12:31 (D50w (Vial) Inj) 50 ml UNSCH PRN IV PUSH 06/10/17 13:30 (Glucagon Inj) 1 mg UNSCH PRN OTHER 06/10/17 13:30 (NovoLIN R SUPPLEMENTAL SCALE) 1 Q6H SQ 06/10/17 13:30 06/15/17 14:37 (Apresoline Inj) 10 mg Q6H PRN IV PUSH 06/10/17 13:30 06/13/17 06:55 (Cardizem) 60 mg Q6H PO 06/10/17 17:00 06/15/17 12:30 (Symbicort 160-4.5 Inh) 2 puff Q12HR INH 06/11/17 09:15 06/15/17 09:32 (Spiriva Inh) 18 mcg DAILY INH 06/11/17 09:15 06/15/17 09:32 (Pepcid) 20 mg BID PO 06/12/17 21:00 06/15/17 09:31 (Lasix Inj) 40 mg DAILY IV PUSH 06/13/17 18:30 06/15/17 09:31 (Vasotec Inj) 1.25 mg Q6H PRN IV PUSH 06/14/17 12:30 06/14/17 13:15 (SEROquel) 50 mg HS PO 06/14/17 21:00 06/14/17 20:42 (Haldol Inj) 2 mg Q6HR PRN IV PUSH 06/14/17 13:15 A/P Problem List: (1) COPD exacerbation ICD Code: J44.1 - Chronic obstructive pulmonary disease with (acute) exacerbation Status: Resolved (2) Hypercapnic respiratory failure ICD Code: J96.92 - Respiratory failure, unspecified with hypercapnia (3) Toxic encephalopathy ICD Code: G92 - Toxic encephalopathy (4) Bilateral lower extremity edema ICD Code: R60.0 - Localized edema Assessment and Plan IMPRESSION Acute hypercapnic respiratory failure. Chronic obstructive pulmonary disease exacerbation. Leukocytosis with bandemia. History of rheumatoid arthritis on Plaquenil. Breast CA status post radiation treatment and lumpectomy. Hypertension. History of recent retinal detachment surgery Encephalopathy RECOMMENDATIONS 1. Monitor neuro status closely and avoid any sedatives. 2. Continue with oxygen maintain sat above 92%. 3. DuoNeb q. 4+ q. 2 p.r.n. for shortness of breath. 4. Continue with IV steroids. Will taper dose to 40 mg IV q [address] Cardenas 5. Noninvasive positive pressure ventilation as needed. 6. CT pulmonary angiogram of the chest -diffuse miliary disease ? atypical pneumonia vs ILD RA associated. Defer to pulmonology 7. Chronic lung disease in the seen in the setting of Plaquenil use. 8. Monitor heart rate and blood pressure closely and maintain MAP greater 65 mmHg. 9. NS at 50 an hour- DC 10. Monitor renal function Is and Os and electrolyte replacement per protocol. 11. Regular diet, Pepcid 10 mg IV q. 12- change to PO 12. Continue with Rocephin and Zithromax 13. DVT prophylaxis with SCDs Lovenox 40 mg Subcu daily. 15. 12/ Patient with BL lower extremity edema. Likely due to fluid overload. CXR no acute disease. Continue IV lasix, monitor I's and O's, daily weight. Check 2 D echo -06/15 discontinue IV Lasix and start oral Lasix. 16. 06/14 Likely lethargy and with toxic encephalopathy due to benzodiazepine use. DC Benzodiazepines. Will Rx Seroquel at bedtime and Haldol as needed for agitation. Avoid Benzodiazepine use. -06/15 patient started on 50 mg by mouth at bedtime of Seroquel. Will decrease dose to 25 mg due to patient's somnolence. Encephalopathy resolving. Discharge Planning Pending resolution of encephalopathy and clinical improvement. Pending 2 D echo. Problem Qualifiers (1) Hypercapnic respiratory failure: Qualified Codes: J96.22 - Acute and chronic respiratory failure with hypercapnia Dawit Hernandez MD Jun 15, 2017 16:28
[2017-06-15] MEDS ORDERED: amLODIPine BESYLATE 5 MG TAB PO ONE (16:45)
[2017-06-15] MEDS: QUEtiapine FUMARATE 100 MG TAB PO SCH (20:47)
[2017-06-15] MEDS: methylPREDNISolone SOD SUCC 40 MG/1 ML VIAL IV PUSH SCH (20:48)
[2017-06-15] MEDS ORDERED: INSULIN DETEMIR 100 UNITS/ML VIAL SQ SCH (21:00)
[2017-06-16] VITALS: BP 151/72; PULSE 103; PULSE 18; RESP 18; TEMP 97.5; O2SAT 98
[2017-06-16] MEDS: INSULIN NovoLIN REGULAR SUPPLEMENTAL SCALE SQ SCH ×3 (01:30→12:37)
[2017-06-16 04:00] VITALS: BP 114/82; PULSE 75; PULSE 85; RESP 18; TEMP 97.1; O2SAT 97
[2017-06-16] MEDS: cefTRIAXone INJ 1,000 MG in SODIUM CHLORIDE 0.9% INJ 100 ML IV SCH (04:26)
[2017-06-16] MEDS: AZITHROMYCIN INJ 500 MG in SODIUM CHLOR 0.9% 250 ML INJ 250 ML IV SCH (05:30)
[2017-06-16] MEDS: DILTIAZEM HCL 60 MG TAB PO SCH ×2 (05:37→12:29)
[2017-06-16] MEDS: ENOXAPARIN SODIUM 40 MG/0.4 ML SYRINGE SQ SCH (05:38)
[2017-06-16 08:00] VITALS: BP 167/92; PULSE 84; RESP 18; TEMP 97.3; O2SAT 96
[2017-06-16 08:40] LABS: HEMATOCRIT 42.2 % (35.0-46.0); MEAN CELL VOLUME 95.9 FL (80.0-100.0); MEAN CORPUSCULAR HEMOGLOBIN 32.8 PG (27.0-34.0); MEAN CORPUSCULAR HGB CONC 34.1 % (32.0-36.0); PLATELET COUNT 134 TH/MM3 (150-450); RED CELL DISTRIBUTION WIDTH 12.5 % (11.6-17.2); REVIEW FLAG FINAL; WHITE BLOOD COUNT 19.2 TH/MM3 (4.0-11.0)
[2017-06-16] MEDS: FAMOTIDINE 20 MG TAB PO SCH (08:55)
[2017-06-16] MEDS: SODIUM CHLORIDE 0.9% FLUSH 10 ML FLUSH IV FLUSH SCH (08:56)
[2017-06-16] MEDS: FUROSEMIDE 40 MG/4 ML VIAL IV PUSH SCH (08:56)
[2017-06-16] MEDS: methylPREDNISolone SOD SUCC 40 MG/1 ML VIAL IV PUSH SCH (08:56)
[2017-06-16] MEDS: BUDESONIDE-FORMOTEROL 160/4.5 MCG INHALER INH SCH (08:56)
[2017-06-16] MEDS: TIOTROPIUM BROMIDE 18 MCG INH INH SCH (08:56)
[2017-06-16] MEDS ORDERED: amLODIPine BESYLATE 5 MG TAB PO SCH (09:00)
[2017-06-16 09:06] VITALS: O2SAT 96
[2017-06-16 09:12] LABS: ANION GAP 7 MEQ/L (5-15); BICARBONATE 36.1 MEQ/L (21.0-32.0); BLOOD UREA NITROGEN 31 MG/DL (7-18); CHLORIDE 97 MEQ/L (98-107); GLOMERULAR FILTRATION RATE 89 ML/MIN (>89); POTASSIUM 3.2 MEQ/L (3.5-5.1); SODIUM (NA) 140 MEQ/L (136-145)
[2017-06-16 10:16] LABS: HEMOGLOBIN A1a 1.6 %; HEMOGLOBIN Ao 82.1 %; HEMOGLOBIN P3 4.6 %
[2017-06-16] MEDS ORDERED: predniSONE 10 MG TAB PO SCH (11:45)
[2017-06-16 12:00] VITALS: BP 148/67; PULSE 75; RESP 18; TEMP 98.2; O2SAT 96
[2017-06-16] MEDS ORDERED: DILT60TA33 PO (12:22)
[2017-06-16] MEDS ORDERED: FURO1TAB62 PO (12:22)
[2017-06-16] MEDS ORDERED: Budeson-Formot 160-4.5 Mg Inh INH (12:22)
[2017-06-16] MEDS ORDERED: AMLO5 PO (12:22)
[2017-06-16] MEDS ORDERED: SPIRCAP INH (12:22)
[2017-06-16] MEDS ORDERED: PRED20 PO (12:22)
[2017-06-16] MEDS ORDERED: CEFU1TAB18 PO (12:22)
--- NOTE | 2017-06-16 12:28 | HHI.DCPOC ---
Discharge Care Plan Diagnosis: (1) COPD exacerbation (2) Bilateral lower extremity edema (3) Toxic encephalopathy (4) Hypercapnic respiratory failure (5) Congestive heart failure (CHF) Goals to Promote Your Health * To prevent worsening of your condition and complications * To maintain your health at the optimal level Directions to Meet Your Goals Take your medications as prescribed Follow your dietary instruction Follow activity as directed Keep your appointments as scheduled Take your immunizations and boosters as scheduled If your symptoms worsen call your PCP, if no PCP go to Urgent Care Center or Emergency Room Smoking is Dangerous to Your Health. Avoid second hand smoke Call the 24-hour hour crisis hotline for domestic abuse at Dawit Hernandez MD Jun 16, 2017 12:28
--- NOTE | 2017-06-16 12:32 | HHI.FF ---
Face to Face Verification Diagnosis: (1) Hypercapnic respiratory failure (2) Congestive heart failure (CHF) (3) COPD exacerbation (4) Rheumatoid arthritis Physical Therapy Order: Improve ambulation, Strength and gait training Home Health Nursing Order: Medical education Signs/symptoms of disease process CHF education Nursing assessment with vital signs I have seen patient Melly Nevarez on 06/16/17. My clinical findings support the need for the requested home health care services because: Patient has SOB Limited ability to care for self Need for psychosocial assistance High risk of falls I certify that my clinical findings support that this patient is homebound because: Hx COPD- exertion dyspnea/weakness Unsteady gait/balance Unsafe to leave home unassisted Unable to use public transportation Dawit Hernandez MD Jun 16, 2017 12:32
[2017-06-16] MEDS ORDERED: WALKER WHEELS/F1 MIS (12:36)
--- NOTE | 2017-06-16 12:38 | HHI.DS ---
Discharge Summary Admission Date Jun 10, 2017 at 05:18 Discharge Date: Jun 16, 2017 Admitting Diagnosis copd exacerbation, bronchitis, sepsis, svt (1) Sepsis ICD Code: A41.9 - Sepsis, unspecified organism Status: Acute (2) COPD exacerbation ICD Code: J44.1 - Chronic obstructive pulmonary disease with (acute) exacerbation Diagnosis: Principal Status: Resolved (3) Hypercapnic respiratory failure ICD Code: J96.92 - Respiratory failure, unspecified with hypercapnia Diagnosis: Principal Status: Resolved (4) Toxic encephalopathy ICD Code: G92 - Toxic encephalopathy Diagnosis: Principal Status: Resolved (5) Bilateral lower extremity edema ICD Code: R60.0 - Localized edema Diagnosis: Principal Status: Resolved Procedures none Brief History - From Admission patient is a 76 y/o female with history of COPD, breast cancer and RA, who presented to ER with worsening shortness of breath. she says that it started a few days ago. it was associated with cough-productive of yellowish sputum. she was seen in ER two days ago and was prescribed prednisone and zithromax and discharged home. she says that despite taking the medications, her sob continued to get worse to the extent that she decided to come back to the hospital. she denies any chest pain, fever or chills.she doesn't use oxygen at home. she was placed on BiPaP in ER . CBC/BMP: 06/16/17 0756 06/16/17 0756 Significant Findings Laboratory Tests Test 06/14/17 05:44 06/14/17 14:29 06/15/17 14:22 06/16/17 07:56 Blood Gas HCO3 39 mmol/L (22-26) Blood Gas Base Excess 14.6 mmol/L (-2-2) Arterial Blood pH 7.48 (7.380-7.420) Arterial Blood Partial Pressure CO2 54 mmHg (38-42) White Blood Count 15.4 TH/MM3 (4.0-11.0) 17.0 TH/MM3 (4.0-11.0) 19.2 TH/MM3 (4.0-11.0) Neutrophils % (Manual) 88 % (16-70) Band Neutrophils % 7 % (0-6) Lymphocytes % 4 % (9-44) Neutrophils # (Manual) 14.6 TH/MM3 (1.8-7.7) Toxic Granulation 1+ (NORMAL) Blood Urea Nitrogen 21 MG/DL (7-18) 31 MG/DL (7-18) 31 MG/DL (7-18) Random Glucose 228 MG/DL (74-106) 277 MG/DL (74-106) 287 MG/DL (74-106) Total Protein 6.0 GM/DL (6.4-8.2) Albumin 3.0 GM/DL (3.4-5.0) Calcium Level 8.3 MG/DL (8.5-10.1) 8.4 MG/DL (8.5-10.1) Potassium Level 2.8 MEQ/L (3.5-5.1) 3.2 MEQ/L (3.5-5.1) Chloride Level 95 MEQ/L (98-107) 95 MEQ/L (98-107) 97 MEQ/L (98-107) Carbon Dioxide Level 41.9 MEQ/L (21.0-32.0) 39.8 MEQ/L (21.0-32.0) 36.1 MEQ/L (21.0-32.0) Anion Gap 4 MEQ/L (5-15) Platelet Count 142 TH/MM3 (150-450) 134 TH/MM3 (150-450) Estimat Glomerular Filtration Rate 75 ML/MIN (>89) Hemoglobin A1c 6.3 % (4.3-6.0) Imaging Last Impressions Chest X-Ray 06/12/17 0600 Signed Impressions: Service Date/Time: May 04:35 - CONCLUSION: No acute disease. Rishi Mulligan MD CT Angiography 06/10/17 0000 Signed Impressions: Service Date/Time: Saturday, June 10, 2017 17:20 - CONCLUSION: Diffuse miliary parenchymal lung disease. Potentially reactive central mediastinal and bilateral ramya are rajan prominence. Differential considerations would include atypical pneumonias, pneumoconiosis, sarcoidosis, metastatic disease. No evidence of pulmonary embolism. Rishi Palomino MD PE at Discharge GEN: Lying in bed, lethargic. HEENT: Oral mucosa is dry. Neck veins are not grossly distended. LUNGS: Mild expiratory wheezing and few coarse crackles. HEART: S1-S2 normal no murmurs ABDOMEN: Abdomen is obese but soft. EXTREMITIES: +2 edema in lower extremities. NEURO: ALethargic but awakens upon stimulation. moves all extremities. Pt update on day of discharge The patient is awake and alert, denies chest pain or shortness of breath. Patient is afebrile with stable vital signs. Potassium trending down at 3.2, will be replaced prior to discharge the patient will be discharge on oral potassium. Hospital Course The patient was initially admitted to the medical floor with acute on chronic hypercapnic history failure, respiratory acidosis secondary to COPD exacerbation. The patient was placed on BiPAP, started on IV antibiotics and IV steroids, supplemental oxygen, DuoNeb's on BiPAP as needed. CT pulmonary angiogram of the chest showed diffuse miliary disease. Possibly secondary to atypical pneumonia versus a soft tissue and disease associated to the patient's rheumatoid arthritis. Pulmonary consulted. Dr. yarbrough followed patient throughout hospitalization. Patient met sepsis criteria on admission with leukocytosis and heart rate more than 90 and PCO2 of 60. The patient was then transferred to the intensive care unit later that day and food specialist consult was placed. The patient came off BiPAP on 06/11/17. Eventually within status improved and the patient was transferred to the medical floor. Once in the medical floor the patient was noted to have bilateral lower extremity edema and pain shortness of breath, the patient was started on IV Lasix which was transitioned to oral. Patient also noted to be combative and agitated overnight when patient transferred out of the unit. The patient was started on Seroquel 50 mg by mouth at bedtime. Agitation and confusion resolved and the patient was mentating back to baseline upon discharge. The patient felt the respiratory home walk test and will be discharge home with home health PT and oxygen. Pt Condition on Discharge: Stable Discharge Disposition: Disch w/ Home Health Serv Discharge Time: > 30 minutes Discharge Instructions DIET: Follow Instructions for: Heart Healthy Diet Activities you can perform: Regular-No Restrictions, See Additionl Instruction Other Activity Instructions: as per PT instructions. Out of bed with assistance only. Please use walker to ambulate. Follow up Referrals: PCP Follow-up - 2 Weeks Pulmonology - 1 Week Patient will need an echocardiogram if not done at hospital. New Medications: Cefuroxime (Ceftin) 250 Mg Tab 250 MG PO BID for Infection, #8 TAB Furosemide (Lasix) 20 Mg Tab 20 MG PO DAILY for Shortness of Breath, #30 TAB 0 Refills Prednisone (Prednisone) 20 Mg Tab 20 MG PO DIRECTED for Inflammation, #11 TAB 0 Refills Take 40mg daily for 3 days; 20mg daily for 3 days; 10mg daily for 3 days, then stop. Walker with Front Wheels (Walker with Front Wheels) 1 Mis Mis EA .ROUTE DIRECTED, #1 0 Refills Amlodipine (Norvasc) 5 Mg Tab 5 MG PO DAILY for Blood Pressure Management, #31 TAB Diltiazem (Cardizem) 60 Mg Tab 60 MG PO Q6H for Blood Pressure Management, #120 TAB Tiotropium Inh (Spiriva Handihaler) 18 Mcg Cap 18 MCG INH DAILY for Shortness of Breath, #31 CAP 1 capsule = 18 mcg [Budeson-Formot 160-4.5 Mg Inh] () 60 PUFF AERO 2 PUFF INH Q12HR for Shortness of Breath, #1 INHALER Continued Medications: Brimonidine Opth Drops (Brimonidine Opth Drops) 0.2% Soln 1 DROP LEFT EYE BID for Intraocular pressure, #1 BOTTLE 0 Refills Hydroxychloroquine (Plaquenil) 200 Mg Tab Unknown Dose PO BID, #60 TAB 0 Refills Take with food Ipratropium-Albuterol Neb (Duoneb) 0.5-2.5 Mg/3 Ml Neb 1 AMPULE NEB Q6HR NEB for COPD for 30 Days, ML Paroxetine (Paxil) 10 Mg Tab Unknown Dose PO DAILY, #30 TAB 0 Refills Prednisolone Acetate Opth 1% (Pred Forte Opth 1%) 1% Susp 1 DROP LEFT EYE BID for Inflammation, #1 BOTTLE 0 Refills Discontinued Medications: Prednisone (Prednisone) 1 Mg Tab 7.5 PO DAILY, TAB 0 Refills Prednisone (48) 10 mg tab Dose Pack (Prednisone (48) 10 mg tab Dose Pack) 10 Mg Dspk 10 MG PO DIRECTED for Inflammation, #1 DSPK 0 Refills Prednisone (Prednisone) 1 Mg Tab 1 MG PO DIRECTED, TAB 0 Refills Dawit Hernandez MD Jun 16, 2017 12:38
[2017-06-16] MEDS ORDERED: OXYGENDME NAS.CANULA (13:06)
[2017-06-16] MEDS ORDERED: POTA-163 PO (13:16)
[2017-06-16] MEDS ORDERED: POTASSIUM CHLORIDE 10 MEQ CONTROLLED RELEASE TAB PO ONE (14:00)
[2017-06-16 16:00] VITALS: BP 124/63; PULSE 78; RESP 18; TEMP 98.1; O2SAT 95
--- NOTE | 2017-06-16 16:06 | ECHRPT ---
Indication: HEART FAILURE CONCLUSIONS Normal left ventricular size. Wall thickness is normal. The left ventricular systolic function is low normal with an estimated ejection fraction in the rang e of 50- 55%. Aortic valve sclerosis is present. There is trace tricuspid valve regurgitation. BP: 164 / 77 HR: 75 Rhythm: MEASUREMENTS (Male / Female) Normal Values Technical Quality:Fair 2D ECHO LV Diastolic Diameter PLAX 4.4 cm 4.2 - 5.9 / 3.9 - 5.3 cm LV Systolic Diameter PLAX 3.4 cm IVS Diastolic Thickness 0.9 cm 0.6 - 1.0 / 0.6 - 0.9 cm LVPW Diastolic Thickness 0.6 cm 0.6 - 1.0 / 0.6 - 0.9 cm LV Relative Wall Thickness 0.3 RV Internal Dim ED PLAX 2.1 cm LA Systolic Diameter LX 2.9 cm 3.0 - 4.0 / 2.7 - 3.8 cm M-MODE Aortic Root Diameter MM 3.7 cm AV Cusp Separation MM 1.9 cm DOPPLER LVOT Peak Velocity 175.0 cm/s LVOT Peak Gradient 12.3 mmHg Mitral E Point Velocity 88.8 cm/s Mitral A Point Velocity 110.0 cm/s Mitral E to A Ratio 0.8 TR Peak Velocity 168.0 cm/s TR Peak Gradient 11.3 mmHg FINDINGS LEFT VENTRICLE Normal left ventricular size. Wall thickness is normal. The left ventricular systolic function is low normal with an estimated ejection fraction in the rang e of 50- 55%. RIGHT VENTRICLE Normal right ventricular size and systolic function. LEFT ATRIUM The left atrial size is normal. RIGHT ATRIUM The right atrial size is normal. ATRIAL SEPTUM Normal atrial septal thickness without atrial level shunting by limited color doppler interrogation. AORTA The aortic root and proximal ascending aorta are normal in size on limited imaging. MITRAL VALVE Structurally normal mitral valve. No mitral valve stenosis or regurgitation. AORTIC VALVE Aortic valve sclerosis is present. TRICUSPID VALVE There is trace tricuspid valve regurgitation. PULMONARY VALVE The pulmonary valve is not well visualized. VESSELS The inferior vena cava is normal in size. PERICARDIUM No pericardial effusion. Tevin Cunningham MD (Electronically Signed) Final Date:16 June 2017 16:06
--- NOTE | 2017-06-16 18:43 | EKG ---
Date Performed: 06/15/2017 Time Performed: 14:33:52 PTAGE: 76 years EKG: Sinus arrhythmia Extensive T wave changes are nonspecific Borderline ECG NO PREVIOUS TRACING DOCTOR: Laila Trinh Interpretating Date/Time 06/16/2017 18:42:20
== END 2017-06-16 16:46 | disposition home or self-care (01) | DRG 871 ==
LOC: NEPE 03:05 → NEDA 05:18 → HCIS 07:23 → HIMN 14:57 → N04A 06-13 03:43
PROVIDERS: ADMIT Hospitalist; ATTEND Hospitalist
DX: A41.9 Sepsis, unspecified organism (principal); J96.22 Acute and chronic respiratory failure with hypercapnia; G92 Toxic encephalopathy; E87.2 Acidosis; J44.1 Chronic obstructive pulmonary disease with (acute) exacerbation; I47.1 Supraventricular tachycardia; I50.9 Heart failure, unspecified; I11.0 Hypertensive heart disease with heart failure; M06.9 Rheumatoid arthritis, unspecified; Z87.891 Personal history of nicotine dependence; Z79.899 Other long term (current) drug therapy; Z85.3 Personal history of malignant neoplasm of breast; Z92.3 Personal history of irradiation; Z87.01 Personal history of pneumonia (recurrent)
CPT/HCPCS: 36600; 71010; 71275; 80048; 80053; 82805; 82948; 83036; 83605; 83735; 84100; 85007; 85027; 87040; 87449; 87804; 93005; 93306; 94002; 94003; 94620; 94640; 94664; 94667; 94668; 96365; 96375; J0360; J0456; J0696; J1650; J1940; J2060; J2920; J2930; J3480; J7030; J7050; J7512; J7613; J7626; Q9967

== ENCOUNTER → 2017-07-15 | Outpatient (CLI) | payer MEDICARE, OTHER ==
[~2017-07-15] MED LIST changes: +AMLO5 PO; +BRIM0.2S4 LEFT EYE; +Budeson-Formot 160-4.5 Mg Inh INH; +CEFU1TAB18 PO; +DILT60TA33 PO; +FURO1TAB62 PO; -LEVA500T PO; +OXYGENDME NAS.CANULA; +POTA-163 PO; -PRED1 PO; -PRED10PA2 PO; +PRED1SUS LEFT EYE; +PRED20 PO; +SPIRCAP INH; +WALKER WHEELS/F1 MIS; -ZITHTAB PO
[2017-07-15 11:05] LABS: BICARBONATE 29.5 MEQ/L (21.0-32.0)
[2017-07-15 11:09] LABS: CREATININE 0.68 MG/DL (0.50-1.00)
[2017-07-15 13:48] LABS: CALCIUM 8.4 MG/DL (8.5-10.1)
== END ==
LOC: PLAB 10:25
PROVIDERS: ATTEND Family Medicine
DX: I50.9 Heart failure, unspecified (principal)
CPT/HCPCS: 36415; 80048

== ENCOUNTER 2017-10-30 09:56 | Day surgery (SDC) | payer MEDICARE, OTHER ==
[~2017-10-30] VITALS: Ht 167.6 cm; Wt 77.3 kg
[2017-10-30] MEDS ORDERED: LIDOCAINE 1%/EPINEPHrine 1:100,000 SOLN 50 ML VIAL OTHER ONE (09:57)
[2017-10-30 10:21] VITALS: BP 177/87; PULSE 70; RESP 18; TEMP 98; O2SAT 95
[2017-10-30] MEDS ORDERED: advil PO (10:40)
[2017-10-30] MEDS ORDERED: PRED10 PO (10:40)
[2017-10-30] MEDS ORDERED: SODIUM CHLOR 0.9% 1000 ML IV SCH (10:45)
[2017-10-30] MEDS ORDERED: MIDAZOLAM HCL 2 MG/2 ML VIAL ONE (11:47)
--- NOTE | 2017-10-30 12:29 | PD.RAD ---
Post CT Procedure Prog Note Pre Procedure Diagnosis: (1) left sacral mass Post Procedure Diagnosis: (1) left sacral mass Procedure Date: Oct 30, 2017 Supervising Radiologist: Carlos Villatoro Proceduralist/Assist: nick biggs joanne Estimated blood loss: none Anesthesia: Conscious Sedation Plan of Activity Patient to Unit: ROPU Patient Condition: Good See PACS Report for procedural detail/treatment Carlos Villatoro MD Oct 30, 2017 12:29
[2017-10-30 12:45] VITALS: BP 136/55; PULSE 76; RESP 16; TEMP 97.8; O2SAT 90
[2017-10-30 13:00] VITALS: BP 155/77; PULSE 75; RESP 18; O2SAT 93
[2017-10-30 13:30] VITALS: BP 125/69; PULSE 77; RESP 18; O2SAT 96
[2017-10-30 14:00] VITALS: BP 129/62; PULSE 76; RESP 18; O2SAT 95
[2017-10-30 14:30] VITALS: BP 131/66; PULSE 74; RESP 18; O2SAT 96
--- NOTE | 2017-10-31 07:48 | RADRPT ---
EXAM DATE/TIME: 10/30/2017 11:56 [facility] COMPARISON: No previous studies available for comparison. INDICATIONS : Bone lesion. SEDATION TIME: 30 minutes BIOPSY SITE: Left Sacrum MEDICATION(S): 1.) 3 mg midazolam (Versed) IV 2.) 150 mcg fentanyl (Sublimaze) IV DEVICE(S): 1.) 12 gauge Bone biopsy needle 2.) 18 gauge Temno core biopsy needle MEDICAL HISTORY : Chronic obstructive pulmonary disease. Hypertension. Bone Mets SURGICAL HISTORY : None. ENCOUNTER: Initial ACUITY: 1 day PAIN SCORE: 0/10 LOCATION: Left Sacrum A total of three core specimen(s) were obtained and sent to the laboratory for pathologic evaluation. PROCEDURE: 1. CT guided bone deep biopsy. Prior to the procedure informed consent was obtained. Any appropriate prior imaging studies were rev iewed. Using automated exposure control and adjustment of the mA and/or kV according to patient size, radiat ion dose was kept as low as reasonably achievable to obtain optimal diagnostic quality images. DICOM format image data is available electronically for review and comparison. The site was prepped in a sterile fashion. Full sterile technique was used, including cap, mask, arden rile gloves and gown and a large sterile sheet. Hand hygiene and 2% chlorhexidine and/or betadine/al cohol prep was utilized per protocol for cutaneous antisepsis. The skin and subcutaneous tissues wer e infiltrated with local anesthetic solution. With CT guidance the previously identified target was localized. Biopsy was performed using the presc ribed needle as above. Adequate hemostasis was obtained with compression at the puncture site. Follow-up CT scan reveals no hemorrhage. The patient tolerated the procedure well and there were no complications. The patient was returned to the Radiology Outpatient Unit in stable condition. CONCLUSION: Uncomplicated CT guided biopsy of expansile left sacral mass. Carlos Villatoro MD on October 31, 2017 at 7:45 Board Certified Radiologist. This report was verified electronically.
[2017-11-03] MEDS ORDERED: SYMB160A INH (10:42)
[2017-11-03] MEDS ORDERED: IBUP200T47 PO (10:42)
== END 2017-10-30 14:45 | disposition home or self-care (01) ==
LOC: HRAD 09:56 → HRIP 09:57 → HRAD 14:45
PROVIDERS: ATTEND Internal Medicine
DX: M89.9 Disorder of bone, unspecified (principal); I10 Essential (primary) hypertension; J44.9 Chronic obstructive pulmonary disease, unspecified
CPT/HCPCS: 20225; 77012; 88305; 88341; 88342; J2250; J3010; J7030

== ENCOUNTER 2017-11-29 01:53 | Emergency (ER) | payer MEDICARE, OTHER ==
[~2017-11-29] VITALS: Ht 167.6 cm; Wt 77.0 kg
[~2017-11-29 01:53] MED LIST changes: -AMLO5 PO; -BRIM0.2S4 LEFT EYE; -Budeson-Formot 160-4.5 Mg Inh INH; -CEFU1TAB18 PO; -FURO1TAB62 PO; +IBUP200T47 PO; -POTA-163 PO; +PRED10 PO; -PRED1SUS LEFT EYE; -PRED20 PO; +SYMB160A INH; -WALKER WHEELS/F1 MIS
[2017-11-29 02:08] VITALS: BP 187/88; PULSE 80; RESP 18; TEMP 98.7; O2SAT 95
[2017-11-29] MEDS ORDERED: OXYC1CAP PO (04:01)
--- NOTE | 2017-11-29 04:02 | PD ---
HPI Chief Complaint: Medication Refill Request Time Seen by Provider: 03:16 Travel History International Travel<30 days: No Contact w/Intl Traveler<30days: No Traveled to known affect area: No History of Present Illness HPI This is a 77-year-old female who has a history of breast cancer with bony metastasis who presents to the emergency department with increasing pain. She describes severe throbbing pain in her low back and sacral area, constant, moderate severity with no associated weakness, numbness or bowel or bladder incontinence. She says she has had this pain ever since she saw Dr. Heck at her last oncology appointment. At that appointment Dr. Heck prescribed her oxycodone. It took her over a month to take 20 total tablets but she ran out of her prescription yesterday and she says she was up all night in severe pain. PFSH Past Medical History Hx Anticoagulant Therapy: No Anxiety: Yes Cancer: Yes (Breast Cancer on Right side , Sacrum, R femur) Cardiovascular Problems: No Congestive Heart Failure: No COPD: Yes Coronary Artery Disease: No Diabetes: No Diminished Hearing: No Endocrine: No Genitourinary: No Hepatitis: No Hiatal Hernia: No Immune Disorder: No Medical other: No Musculoskeletal: No Neurologic: No Psychiatric: Yes (anxiety/depression) Reproductive: No Respiratory: Yes (COPD, Asthma) Pneumonia: Yes Thyroid Disease: No Tetanus Vaccination: < 5 Years Influenza Vaccination: No ?: Not Menopausal: Yes Past Surgical History Abdominal Surgery: No AICD: No Cardiac Surgery: No Section: Yes (X2) Ear Surgery: No Endocrine Surgery: No Eye Surgery: Yes (detached retina repair 04/2017) Genitourinary Surgery: No Gynecologic Surgery: No Hysterectomy: No Joint Replacement: No Neurologic Surgery: Yes (DISCECTOMY) Oral Surgery: Yes (Tonsilectomy at age 7) Pacemaker: No Thoracic Surgery: No Tonsillectomy: Yes Other Surgery: Yes (LUMPECTOMY RIGHT BREAST) Social History Alcohol Use: Yes (WINE 1-2 GLASSES WITH DINNER) Tobacco Use: No Substance Use: No Allergies-Medications (Allergen,Severity, Reaction): Coded Allergies: shellfish derived (Unverified Allergy, Severe, Anaphylaxis, 11/29/17) Reported Meds & Prescriptions Reported Meds & Active Scripts Active Oxygen (O2) Device Liter LUIS.CANULA CONTINUOUS Oxygen Concentrator Portable Gaseous 2 L/min via Nasal Canula Continuous For 99 months Cardizem (Diltiazem HCl) 60 Mg Tab 60 Mg PO Q6H Spiriva Handihaler (Tiotropium Inh) 18 Mcg Cap 18 Mcg INH DAILY 1 capsule = 18 mcg Duoneb (Ipratropium-Albuterol Neb) 0.5-2.5 Mg/3 Ml Neb 1 Ampule NEB Q6HR NEB 30 Days Reported Symbicort Inh (Budesonide/Formoterol Fumarate) 160-4.5 Mcg/Act Aero 2 Puff INH Q12HR Ibuprofen 200 Mg Tab 200 Mg PO TID PRN Prednisone 10 Mg Tab 7.5 Mg PO DAILY Paxil (Paroxetine HCl) 10 Mg Tab Unknown Dose PO DAILY Plaquenil (Hydroxychloroquine Sulfate) 200 Mg Tab Unknown Dose PO BID Take with food Review of Systems Except as stated in HPI: all other systems reviewed are Neg Physical Exam Narrative GENERAL:Well appearing, no acute distress SKIN: Focused skin assessment warm and dry. HEAD: Atraumatic. Normocephalic. EYES: Pupils equal and round. No injection or drainage. ENT: Moist mucous membranes NECK: Trachea midline. CARDIOVASCULAR: Regular rate and rhythm. No murmur appreciated. RESPIRATORY: Mild diffuse wheezing with no increased work of breathing. GASTROINTESTINAL: Abdomen soft, non-tender, nondistended. MUSCULOSKELETAL: Tender to palpation over the SI joint. NEUROLOGICAL: Awake and alert. No obvious cranial nerve deficits. 5 out of 5 strength in the bilateral upper and lower extremities. PSYCHIATRIC: Appropriate mood and affect; insight and judgment normal. Data Data Last Documented VS Vital Signs Date Time Temp Pulse Resp B/P (MAP) Pulse Ox O2 Delivery O2 Flow Rate FiO2 11/29/17 02:08 98.7 80 18 187/88 (121) 95 MDM Medical Decision Making Medical Screen Exam Complete: Yes Emergency Medical Condition: Yes Differential Diagnosis Cancer pain, spinal cord compression Narrative Course This is a 77-year-old female who presents to the emergency department with pain in the setting of bony metastasis. She has a normal neurologic exam and no neurologic symptoms. Her pain is likely secondary to a known sacral mass. Patient will be discharged on oxycodone and was asked to follow-up with Dr. Heck in clinic. Diagnosis Primary Impression: Cancer related pain Patient Instructions: General Instructions Additional Instructions: If you develop numbness, weakness, loss of your bowels or bladder return to the emergency room. Med/Other Pt SpecificInfo: Prescription(s) given Scripts Oxycodone (Oxycodone) 5 Mg Cap 5 MG PO Q6H Y for PAIN, #12 CAP 0 Refills Prov: Sandi Sheehan MD 11/29/17 Disposition: 01 DISCHARGE HOME Condition: Stable Sandi Sheehan MD November 29, 2017 04:01
== END 2017-11-29 04:14 | disposition home or self-care (01) ==
LOC: NEPC 01:53
DX: G89.3 Neoplasm related pain (acute) (chronic) (principal); C79.51 Secondary malignant neoplasm of bone; J44.9 Chronic obstructive pulmonary disease, unspecified; Z85.3 Personal history of malignant neoplasm of breast
CPT/HCPCS: 99283

== ENCOUNTER 2017-12-04 01:45 | Emergency (ER) | payer MEDICARE, OTHER ==
[~2017-12-04] VITALS: Ht 167.6 cm; Wt 80.0 kg
[~2017-12-04 01:45] MED LIST changes: +OXYC1CAP PO
[2017-12-04 01:58] VITALS: BP 197/79; PULSE 93; RESP 18; TEMP 98.6; O2SAT 94
[2017-12-04] MEDS ORDERED: UMEC1INH INH (02:16)
[2017-12-04] MEDS ORDERED: ALBUAER3 INH (02:16)
[2017-12-04] MEDS ORDERED: ONDANSETRON ODT 4 MG TAB PO ONE (02:45)
[2017-12-04] MEDS ORDERED: MORPHINE SULFATE 8 MG/ML INJ IV PUSH ONE (02:45)
--- NOTE | 2017-12-04 02:51 | PD ---
HPI Chief Complaint: Pain: Acute or Chronic Time Seen by Provider: 02:22 Travel History International Travel<30 days: No Contact w/Intl Traveler<30days: No Traveled to known affect area: No History of Present Illness HPI 77yo F with PMH of bone cancer in her sacrum here with c/o worsening bone pain. Pt said she went to radiation therapy this week for 3 days and is now in excruciating pain. Also with nausea. Pt had radiation therapy last week and needed to come to the ED on 11/29 for pain. Pt said she took her oxycodone and it didnt work. Denies any fever, chest pain, sob, n/v, abdominal pain, focal weakness or numbness. Pt's oncologist is Dr. Heck. PFSH Past Medical History Hx Anticoagulant Therapy: No Anxiety: Yes Cancer: Yes (Breast Cancer on Right side , Sacrum, R femur) Cardiovascular Problems: No Congestive Heart Failure: No COPD: Yes Coronary Artery Disease: No Diabetes: No Diminished Hearing: No Endocrine: No Gastrointestinal Disorders: No Genitourinary: No Hepatitis: No Hiatal Hernia: No Hypertension: No Immune Disorder: No Medical other: No Musculoskeletal: No Neurologic: No Psychiatric: Yes (anxiety/depression) Reproductive: No Respiratory: Yes (COPD, Asthma) Pneumonia: Yes Thyroid Disease: No Menopausal: Yes Past Surgical History Abdominal Surgery: No AICD: No Cardiac Surgery: No Section: Yes (X2) Ear Surgery: No Endocrine Surgery: No Eye Surgery: Yes (detached retina repair 04/2017) Genitourinary Surgery: No Gynecologic Surgery: No Hysterectomy: No Joint Replacement: No Neurologic Surgery: Yes (DISCECTOMY) Oral Surgery: Yes (Tonsilectomy at age 7) Pacemaker: No Thoracic Surgery: No Tonsillectomy: Yes Other Surgery: Yes (LUMPECTOMY RIGHT BREAST) Social History Alcohol Use: Yes (WINE 1-2 GLASSES WITH DINNER) Tobacco Use: No Substance Use: No Allergies-Medications (Allergen,Severity, Reaction): Coded Allergies: shellfish derived (Unverified Allergy, Severe, Anaphylaxis, 12/04/17) Reported Meds & Prescriptions Reported Meds & Active Scripts Active Oxycodone (Oxycodone HCl) 5 Mg Cap 5 Mg PO Q6H PRN Oxygen (O2) Device Liter LUIS.CANULA CONTINUOUS Oxygen Concentrator Portable Gaseous 2 L/min via Nasal Canula Continuous For 99 months Cardizem (Diltiazem HCl) 60 Mg Tab 60 Mg PO Q6H Duoneb (Ipratropium-Albuterol Neb) 0.5-2.5 Mg/3 Ml Neb 1 Ampule NEB Q6HR NEB 30 Days Reported Proair Hfa 8.5 GM Inh (Albuterol Sulfate) 90 Mcg/Act Aer 2 Puff INH Q4-6H PRN 108 mcg/actuation Incruse Ellipta Inh (Umeclidinium Sumner Inh) 0.0625 Mg/Act Inh 62.5 Mcg INH DAILY Ibuprofen 200 Mg Tab 200 Mg PO TID PRN Prednisone 10 Mg Tab 7.5 Mg PO DAILY Paxil (Paroxetine HCl) 10 Mg Tab Unknown Dose PO DAILY Plaquenil (Hydroxychloroquine Sulfate) 200 Mg Tab Unknown Dose PO BID Take with food Review of Systems Except as stated in HPI: all other systems reviewed are Neg Physical Exam Narrative GENERAL: 77yo F in mild distress. SKIN: Focused skin assessment warm/dry. HEAD: Atraumatic. Normocephalic. EYES: Pupils equal and round. No scleral icterus. No injection or drainage. ENT: No nasal bleeding or discharge. Mucous membranes pink and moist. NECK: Trachea midline. No JVD. CARDIOVASCULAR: Regular rate and rhythm. No murmur appreciated. RESPIRATORY: No accessory muscle use. Clear to auscultation. Breath sounds equal bilaterally. GASTROINTESTINAL: Abdomen soft, non-tender, nondistended. BACK: No midline ttp thoracic or lumbar spine. +TTP sacrum. MUSCULOSKELETAL: No obvious deformities. No clubbing. No cyanosis. No edema. NEUROLOGICAL: Awake and alert. No obvious cranial nerve deficits. Motor grossly within normal limits. Normal speech. PSYCHIATRIC: Appropriate mood and affect; insight and judgment normal. Data Data Last Documented VS Vital Signs Date Time Temp Pulse Resp B/P (MAP) Pulse Ox O2 Delivery O2 Flow Rate FiO2 12/04/17 02:50 16 12/04/17 01:58 98.6 93 197/79 (118) 94 Orders Orders Complete Blood Count With Diff (12/04/17 02:31) Comprehensive Metabolic Panel (12/04/17 02:31) Morphine Inj (Morphine Inj) (12/04/17 02:45) Ondansetron Odt (Zofran Odt) (12/04/17 02:45) Labs Laboratory Tests Test 12/04/17 02:40 White Blood Count 4.2 TH/MM3 Red Blood Count 4.21 MIL/MM3 Hemoglobin 13.3 GM/DL Hematocrit 39.2 % Mean Corpuscular Volume 92.9 FL Mean Corpuscular Hemoglobin 31.5 PG Mean Corpuscular Hemoglobin Concent 33.9 % Red Cell Distribution Width 13.7 % Platelet Count 110 TH/MM3 Mean Platelet Volume 9.5 FL Neutrophils (%) (Auto) 67.2 % Lymphocytes (%) (Auto) 8.5 % Monocytes (%) (Auto) 17.7 % Eosinophils (%) (Auto) 6.1 % Basophils (%) (Auto) 0.5 % Neutrophils # (Auto) 2.8 TH/MM3 Lymphocytes # (Auto) 0.4 TH/MM3 Monocytes # (Auto) 0.7 TH/MM3 Eosinophils # (Auto) 0.3 TH/MM3 Basophils # (Auto) 0.0 TH/MM3 CBC Comment DIFF FINAL Differential Comment Blood Urea Nitrogen 17 MG/DL Creatinine 0.64 MG/DL Random Glucose 116 MG/DL Total Protein 6.5 GM/DL Albumin 3.7 GM/DL Calcium Level 8.8 MG/DL Alkaline Phosphatase 75 U/L Aspartate Amino Transf (AST/SGOT) 20 U/L Alanine Aminotransferase (ALT/SGPT) 17 U/L Total Bilirubin 0.6 MG/DL Sodium Level 140 MEQ/L Potassium Level 3.9 MEQ/L Chloride Level 101 MEQ/L Carbon Dioxide Level 32.6 MEQ/L Anion Gap 6 MEQ/L Estimat Glomerular Filtration Rate 90 ML/MIN [facility] Medical Decision Making Medical Screen Exam Complete: Yes Emergency Medical Condition: Yes Differential Diagnosis Malignancy pain vs. tumor lysis syndrome vs. dehydration vs. electrolyte abnormality Narrative Course 77yo F with worsening sacral pain after radiation therapy. Pt given morphine and zofran with improvement of pain and nausea. Labs reviewed, no leukocytosis. H/H normal. Mild thrombocytopenia. CMP unremarkable. Pt feels better and wants to go home. Return precautions given. Diagnosis Primary Impression: Cancer associated pain Patient Instructions: General Instructions Departure Forms: Tests/Procedures Additional Instructions: Please follow up with Dr. Heck as outpatient. Please take the oxycodone that you have as needed for pain. Return to the ED if symptoms worsen. Med/Other Pt SpecificInfo: No Change to Meds Disposition: 01 DISCHARGE HOME Condition: Stable RawlsShaylaMiriam DO December 04, 2017 02:51
[2017-12-04 02:58] LABS: AUTOMATED NEUTROPHIL # 2.8 TH/MM3 (1.8-7.7); BASOPHIL % 0.5 % (0.0-2.0); EOSINOPHIL # 0.3 TH/MM3 (0-0.4); EOSINOPHIL % 6.1 % (0.0-4.0); HEMATOCRIT 39.2 % (35.0-46.0); HEMOGLOBIN 13.3 GM/DL (11.6-15.3); LYMPH % 8.5 % (9.0-44.0); LYMPHOCYTE # 0.4 TH/MM3 (1.0-4.8); MEAN CELL VOLUME 92.9 FL (80.0-100.0); MEAN CORPUSCULAR HEMOGLOBIN 31.5 PG (27.0-34.0); MEAN CORPUSCULAR HGB CONC 33.9 % (32.0-36.0); MEAN PLATELET VOLUME 9.5 FL (7.0-11.0); MONO % 17.7 % (0.0-8.0); MONOCYTE # 0.7 TH/MM3 (0-0.9); NEUT % 67.2 % (16.0-70.0); PLATELET COUNT 110 TH/MM3 (150-450); RED BLOOD COUNT 4.21 MIL/MM3 (4.00-5.30); RED CELL DISTRIBUTION WIDTH 13.7 % (11.6-17.2); WHITE BLOOD COUNT 4.2 TH/MM3 (4.0-11.0)
[2017-12-04 03:19] LABS: ALBUMIN 3.7 GM/DL (3.4-5.0); ALT (GPT) 17 U/L (10-53); AST (GOT) 20 U/L (15-37); BICARBONATE 32.6 MEQ/L (21.0-32.0); BLOOD UREA NITROGEN 17 MG/DL (7-18); CALCIUM 8.8 MG/DL (8.5-10.1); CHLORIDE 101 MEQ/L (98-107); CREATININE 0.64 MG/DL (0.50-1.00); GLOMERULAR FILTRATION RATE 90 ML/MIN (>89); GLUCOSE,RANDOM 116 MG/DL (74-106); SODIUM (NA) 140 MEQ/L (136-145)
[2017-12-04 03:20] LABS: ALKALINE PHOSPHATASE 75 U/L (45-117); TOTAL BILIRUBIN ADULT 0.6 MG/DL (0.2-1.0); TOTAL PROTEIN 6.5 GM/DL (6.4-8.2)
[2017-12-04 03:37] VITALS: BP 185/82; PULSE 82; RESP 18; O2SAT 96
== END 2017-12-04 04:05 | disposition home or self-care (01) ==
LOC: NEPC 01:45
DX: G89.3 Neoplasm related pain (acute) (chronic) (principal); R11.0 Nausea; D69.6 Thrombocytopenia, unspecified; C41.4 Malignant neoplasm of pelvic bones, sacrum and coccyx; J44.9 Chronic obstructive pulmonary disease, unspecified; F32.9 Major depressive disorder, single episode, unspecified; Z85.3 Personal history of malignant neoplasm of breast; Z79.899 Other long term (current) drug therapy
CPT/HCPCS: 80053; 85025; 96374; 99284; J2270

== ENCOUNTER 2018-03-10 11:15 | Inpatient (IN) ==
--- NOTE | 2018-03-10 14:47 | P.HPIM ---
History of Present Illness Primary Care Physician: Chelsie Puente MD Chief Complaint: hip pain History of Present Illness: patient is a 77 y/o female with history of breast cancer with metastasis to the bone who was advised by her oncologist to come to the hospital for intractable left hip and back pain. she says that she was found to have bone metastasis a few months ago and underwent radiation at the time. she says that she had a fall in December when she landed on her left side after which she started to have some pain. she says that the pain has been getting worse since then to the extent that she had troubled walking. she says that pain is tolerable when she' s sitting but it gets much worse when she starts to move. her home oral pain medications hasn't worked as much.she had an MRI of the back last week and due to the severity of the pain she was advised to come to the hospital. Review of Systems All other systems reviewed negative except as stated in HPI [facility] - Medical History Medical History: Medical History (Last Updated 03/10/18 @ 14:41 by Blanche Giraldo MD) Breast cancer COPD (chronic obstructive pulmonary disease) Hypertension Rheumatoid arthritis - Surgical History Surgical History: Surgical History (Last Updated 03/10/18 @ 14:42 by Blanche Giraldo MD) Previous section - Family History Family History: Family History (Last Updated 03/10/18 @ 14:42 by Blanche Giraldo MD) Other History of throat cancer Medications and Allergies Active Medications: Active Medications Albuterol (Duoneb Neb (Prn)) 1 ampul NEB Q6HR NEB PRN PRN Reason: sob Docusate Sodium (Colace) 100 mg PO BID SARA Allergies Allergy/AdvReac Type Severity Reaction Status Date / Time shellfish derived Allergy Severe Anaphylaxis Unverified 12/04/17 02:02 Home Medications Medication Instructions Recorded Confirmed Type anastrozole 1 mg PO DAILY 03/10/18 03/10/18 History denosumab [Xgeva] 120 mg SUB-Q Q4W 03/10/18 03/10/18 History diltiazem HCl 180 mg PO DAILY 03/10/18 03/10/18 History hydroxychloroquine [Plaquenil] 200 mg PO BID 03/10/18 03/10/18 History ipratropium-albuterol 3 ml INHALATION Q12H 03/10/18 03/10/18 History morphine 15 mg PO Q12H 03/10/18 03/10/18 History oxycodone 5 mg PO Q4-6H PRN 03/10/18 03/10/18 History paroxetine HCl [Paxil] 10 mg PO DAILY 03/10/18 03/10/18 History prednisone 10 mg PO DAILY 03/10/18 03/10/18 History umeclidinium [Incruse Ellipta] 1 inh INHALATION Q24H 03/10/18 03/10/18 History Exam Vital signs: Vital Signs 03/10/18 13:54 Temperature 98.3 F Pulse Rate 63 Respiratory Rate 18 Blood Pressure 156/78 H Pulse Oximetry 95 - Constitutional no acute distress - Routine HEENT Exam Eye: Present: PERRL - Routine Neck Exam Present: supple - Routine Respiratory Exam Present: CTA bilaterally - Routine Cardiovascular Exam Present: RRR - Routine Abdominal Exam Present: soft - Routine Extremities Exam Comments: no pedal edema - Routine Neurological Exam Present: alert, oriented X3 Caprini VTE Risk Assessment Caprini VTE Risk Assessment: Moderate/High Risk (score >= 2) Caprini Risk Assessment Model: Point Value = 1 Point Value = 2 Point Value = 3 Point Value = 5 Age 41-60 Minor surgery BMI > 25 kg/m2 Swollen legs Varicose veins or History of unexplained or recurrent spontaneous Oral contraceptives or hormone replacement Sepsis (< 1 month) Serious lung disease, including pneumonia (< 1 month) Abnormal pulmonary function Acute myocardial infarction Congestive heart failure (< 1 month) History of inflammatory bowel disease Medical patient at bed rest Age 61-74 Arthroscopic surgery Major open surgery (> 45 min) Laparoscopic surgery (> 45 min) Malignancy Confined to bed (> 72 hours) Immobilizing plaster cast Central venous access Age >= 75 History of VTE Family history of VTE Factor V Leiden Prothrombin [id number] Lupus anticoagulant Anticardiolipin antibodies Elevated serum homocysteine Heparin-induced thrombocytopenia Other congenital or acquired thrombophilia Stroke (< 1 month) Elective arthroplasty Hip, pelvis, or leg fracture Acute spinal cord injury (< 1 month) Prophylaxis Regimen: Total Risk Factor Score Risk Level Prophylaxis Regimen 0-1 Low Early ambulation 2 Moderate Order ONE of the following: *Sequential Compression Device (SCD) *Heparin 5000 units SQ BID 3-4 Higher Order ONE of the following medications: *Heparin 5000 units SQ TID *Enoxaparin/Lovenox 40 mg SQ daily (WT < 150 kg, CrCl > 30 mL/min) *Enoxaparin/Lovenox 30 mg SQ daily (WT < 150 kg, CrCl > 10-29 mL/min) *Enoxaparin/Lovenox 30 mg SQ BID (WT < 150 kg, CrCl > 30 mL/min) AND/OR *Sequential Compression Device (SCD) 5 or more Highest Order ONE of the following medications: *Heparin 5000 units SQ TID (Preferred with Epidurals) *Enoxaparin/Lovenox 40 mg SQ daily (WT < 150 kg, CrCl > 30 mL/min) *Enoxaparin/Lovenox 30 mg SQ daily (WT < 150 kg, CrCl > 10-29 mL/min) *Enoxaparin/Lovenox 30 mg SQ BID (WT < 150 kg, CrCl > 30 mL/min) AND *Sequential Compression Device (SCD) Assessment and Plan - Plan A/P - intractable left hip/ back pain after a fall with history of breast cancer with bone metastasis will increase oral Morphine/ will start on IV Dilaudid as needed for breakthrough pain. will obtain the report of MRI that was done last week. will consult Oncology- -COPD- uses oxygen at home. with no exacerbation; neb treatment as needed. -hypertension; resume home meds. -RA; resume home meds. -DVT prophylaxis; with SCD's Discussed Condition With: the patient, RN. .
[2018-03-10] MEDS ORDERED: DENOSUMAB 120 MG SQ SCH (15:00)
[2018-03-10 15:20] LABS: Baso % (Auto) 0.4 % (0.0-2.0); Eos % (Auto) 0.2 % (0.0-4.0); Hematocrit 42.7 % (35.0-46.0); Hemoglobin 14.3 gm/dL (11.6-15.3); Lymph # (Auto) 0.4 th/mm3 (1.0-4.8); Lymph % (Auto) 4.5 % (9.0-44.0); Mean Corpuscular HGB Conc 33.5 % (32.0-36.0); Mean Corpuscular Hemoglobin 32.7 pg (27.0-34.0); Mean Corpuscular Volume 97.6 fL (80.0-100.0); Mean Platelet Volume 9.7 fL (7.0-11.0); Mono # (Auto) 0.8 th/mm3 (0.0-0.9); Mono % (Auto) 8.9 % (0.0-8.0); Neut # (Auto) 7.5 th/mm3 (1.8-7.7); Platelet Count 140 th/mm3 (150-450); Red Blood Count 4.37 mil/mm3 (4.00-5.30); Red Cell Distribution Width 13.7 % (11.6-17.2); White Blood Count 8.7 th/mm3 (4.0-11.0)
[2018-03-10 15:44] LABS: Anion Gap 7 meq/L (5-15); Calcium 8.7 mg/dL (8.5-10.1); Carbon Dioxide 30.6 meq/L (21.0-32.0); Chloride 102 meq/L (98-107); Glomerular Filtration Rate Greater Than 89 mL/min (>89); Potassium 4.3 meq/L (3.5-5.1); Sodium 140 meq/L (136-145)
[2018-03-10 15:45] LABS: Blood Urea Nitrogen 21 mg/dL (7-18); Glucose,Random 106 mg/dL (74-106)
[2018-03-10] MEDS: Morphine Sulfate 15 MG SR Tablet PO SCH (16:24)
[2018-03-10] MEDS: HYDROmorphone PF Inj 2 MG/ML Vial IV.PUSH PRN (17:48)
--- NOTE | 2018-03-10 19:11 | MB ---
cc: Andrew Colunga [facility] DATE: 03/10/2018 CHIEF COMPLAINT: Left pelvic pain. HISTORY OF PRESENT ILLNESS: This is a 77-year-old female with a history of breast cancer, with metastasis to the bone, who was advised by her oncologist to come to the hospital for intractable left hip and back pain. The patient states that her breast cancer was diagnosed 10 years ago. The patient had radiation and was doing well until a few months ago. The patient was found to have bone metastasis and states this was found on the right side of her pelvis. The patient did have radiation at that time. The patient states she was doing very well following the radiation. The patient states that on 01/03/2018, she had a fall where she landed on the left side. The patient states she hit her face and had some left wrist pain. The patient was not found to have any specific injuries after being evaluated. The patient states that over the last several weeks, she has had increased pain to the left hip and left lower back. The patient reports her pain has been worse with weightbearing and walking. The patient states she has had minimal pain when sitting, unless she moves around, and then this elicits more pain. The patient recently had an MRI of the lumbar spine ordered last week due to the severity of her pain. The MRI showed new lesions on the left side of her pelvis. The patient's cancer is being managed by Dr. Heck. The patient states Dr. Heck sent her to the hospital to have her pain managed. The patient denies any radicular pain or tingling or numbness about the bilateral lower extremities. REVIEW OF SYSTEMS: All systems are reviewed and are negative, except for what is stated in the HPI. PAST MEDICAL HISTORY: Includes breast cancer, COPD, hypertension, rheumatoid arthritis. PAST SURGICAL HISTORY: Includes a right breast lumpectomy, L5 diskectomy, 2 sections, and tonsillectomy. FAMILY HISTORY: The patient's mother from throat cancer. The patient's father from congestive heart failure. MEDICATIONS: See nurse's notes. ALLERGIES: SHELLFISH, WHICH CAUSES SEVERE ANAPHYLAXIS. PHYSICAL EXAMINATION: VITAL SIGNS: As follows, temperature 98.3, pulse 63, respirations 18, blood pressure 156/78, pulse oximetry is 95% on room air. GENERAL: The patient is resting out of bed in a chair, in no acute distress. EYES: PERRLA. EARS, NOSE, AND THROAT: Mucous membranes are pink and moist. There is no drainage from the ears or nose. NECK: Supple, with midline trachea. SKIN: Skin is intact and is warm and dry. CARDIOVASCULAR: The patient has 2+ pedal and radial pulses bilaterally. RESPIRATORY: The patient has symmetric chest wall rise and nonlabored breathing. ABDOMEN: The patient's abdomen was soft, round, and nondistended. MUSCULOSKELETAL: The patient moves the bilateral ankles, knees, and hips within normal range of motion, with no tenderness. The patient does have some tenderness and discomfort about the left pelvis with strength testing of the left lower extremity. The patient moves the bilateral wrists, elbows, and shoulders within normal limits. The patient does have some mild tenderness to the left wrist. The patient has some tenderness about the left sacrum with deep palpation. NEUROLOGIC: The patient is alert and oriented x3, with no obvious cranial nerve deficits. PSYCHOSOCIAL: The patient has normal mood and affect. LABORATORY DATA: On 03/10/2018, the patient's white blood cells are 8.7, hemoglobin 14.3, hematocrit 42.7, platelets 140,000. Creatinine is 0.62, and glucose is 106. IMAGING: I did find the MRI of the lumbar spine with and without contrast on 03/05/2018 taken at [facility]. The report reads as decrease in size of previously identified metastatic deposits. There is a new metastatic deposit in the left sacral ala, which appears to have an associated insufficiency fracture. There is severe central spinal stenosis at L4-L5. There is advanced degenerative disk disease, unchanged when compared to recent study on 10/07/2017. I have reviewed the images and agree with the radiologist's interpretation. IMPRESSION: 1. Intractable left hip/back pain after fall, with history of breast cancer with bone metastasis. 2. Likely left sacral insufficiency fracture. MEDICAL DECISION MAKING: This is a complicated situation in that the patient does have a history of breast cancer with recent metastasis of the cancer to the bone. The patient had a recent MRI, which does confirm a new bone lesion about the left sacrum with sacral insufficiency fracture. I took time today to discuss the findings of the MRI with the patient. I do feel based on the study that treatment from an orthopedic standpoint can be conservative. The patient does not require any surgical intervention. We discussed the importance of activity modification to decrease the pain she is having. I have recommended the patient use a walker to offload some stress to the left sacrum. The patient should initially be 50% weightbearing and can gradually transition to weightbearing as tolerated as her pain improves. Pain management will be addressed by medical. I do feel based on the MRI findings that the patient would benefit from a neurosurgeon consultation. I informed the patient that I will place this consult today. Regarding the patient's metastatic cancer, Dr. Heck will be managing this moving forward. I did advise the patient to follow up with us in the office regarding the insufficiency fracture of the sacrum. We can manage this over the next several months to ensure optimal outcome. I have reviewed the above impression and plan of care with Dr. Zamudio and he agrees with this documentation. JOSE Suh , 06:09 PM , 06:30 PM [email or web address]
[2018-03-10] MEDS: Docusate Sodium 100 MG Capsule PO SCH (20:41)
[2018-03-10] MEDS: Hydroxychloroquine 200 MG Tablet PO SCH (20:41)
--- NOTE | 2018-03-10 22:12 | CT ---
EXAM DATE: 03/10/2018 10:00 PM EDT AGE/SEX: 77 years / Female INDICATIONS: Posterior lower pelvic pain. CLINICAL DATA: This is the patient's initial encounter. Patient reports that signs and symptoms have been present for 1 day and indicates a pain score of 3/10. MEDICAL/SURGICAL HISTORY: Chronic obstructive pulmonary disease. Hypertension. Rheumatoid arthrit is. Breast cancer. section. L5 discectomy. RADIATION DOSE: 24.12 CTDI (mGy) COMPARISON: . TECHNIQUE: Multiple contiguous axial images were obtained through the pelvis without contrast. Imag es were obtained using multiple row detector helical technique. . Using automated exposure control an d adjustment of the mA and/or kV according to patient size, radiation dose was kept as low as reasona jody achievable to obtain optimal diagnostic quality images. DICOM format image data is available darion ctronically for review and comparison. FINDINGS: Bowel/Mesentery: The bowel loops are grossly unremarkable. The sigmoid colon has a normal configura tion. Bladder: Contours are smooth. Retroperitoneum: No evidence of deep pelvic adenopathy. Reproductive Organs: No abnormal masses or calcifications seen. Inguinal: The inguinal region is unremarkable without evidence of adenopathy. Bony Structures: Bony changes suggestive of metastatic disease are again noted and unchanged compared to September 2017. A lytic destructive lesion is noted within the left pedicle and transverse process of L5 as well as within the medial aspect of the right iliac bone. Scattered smaller lesions are more d ifficult to identify on today's examination. CONCLUSION: 1. No evidence of acute intrapelvic process. 2. Bony changes suggestive of metastatic disease are again noted and unchanged compared to September 8. A lytic destructive lesion is noted within the left pedicle and transverse process of L5 as well a s within the medial aspect of the right iliac bone. Scattered smaller lesions are more difficult to i dentify on today's examination. Electronically signed by: Tapan Pizarro MD 03/10/2018 10:10 PM EDT
--- NOTE | 2018-03-11 00:16 | MB ---
cc: Maddie Heck MD DATE: 03/10/2018 CHIEF COMPLAINT: 1. Metastatic breast cancer. 2. Sacral fracture. 3. Intractable pain. HISTORY OF PRESENT ILLNESS: Ms. Nevarez is a 77-year-old lady with a history of rheumatoid arthritis, COPD, hypertension, who initially came to medical attention when she was found to have bony disease in her pelvis, highly suspicious for metastatic disease. For 6 months prior to presentation she had been having lower back pain in her sacrum. She also follows with her tool trouble shooter, Dr. Kory Cardenas and she has known inflammatory nodules in her lungs. MRI of the lumbar spine from 10/07/2017 showed an expansile lytic lesion measuring 2.7 cm involving the S2 segment and a second focal lesion within the right medial iliac bone, which is indeterminate at 4.1 cm and a lesion involving the left posterior aspect of the pedicle of L5 is also noted. There is a 1.5 cm focal lesion involving the posterior aspect of the S1 segment. She was also found to have severe spinal stenosis and moderate bilateral foraminal narrowing at L4-L5. MRI of the pelvis from 10/10/2017 with expansile lesion at S2 and a lesion in the left pedicle of L5. Bone scan showed multifocal degenerative uptake with one indeterminate uptake involving the right midshaft femur. She had a biopsy with the tumor being positive for estrogen receptor and GATA3. These additional stains suggest a breast primary. The patient does have a past history of breast cancer in 2008 after a mass was found on routine mammogram. This was infiltrating ductal carcinoma grade 2, estrogen receptor positive, progesterone receptor negative and HER-2 equivocal by IHC but negative by FISH. She underwent a right lumpectomy and tumor measured 3 cm, tumor stage IIA, and negative lymph nodes. She received adjuvant radiation therapy, no chemotherapy and unable to tolerate adjuvant aromatase inhibitor due to side effects. She has received radiation therapy to her sacrum and she continues on Anastrozole. She had some difficulty with pain during radiation; however, this resolved. She recently fell at [place] under her sacral area and also hit her wrist and her head. Recent MRI obtained by her primary restorative care technician with metastatic decrease in size of previously identified metastatic deposits with a new metastatic deposit in the left sacral ala, which appears to have an associated insufficiency fracture. She has been seen by the orthopedic service who recommended limited weightbearing and neurosurgery consultation. PAST MEDICAL HISTORY: Anxiety, arthritis, asthma, COPD. PAST SURGICAL HISTORY: Breast surgery. ALLERGIES: SHELLFISH. FAMILY HISTORY: No family history of breast cancer. SOCIAL HISTORY: Quit smoking. Good family support system. REVIEW OF SYSTEMS: As above in the HPI. All other review of systems negative. PHYSICAL EXAMINATION: GENERAL: Well-developed, well-nourished lady, in no distress. HEENT: Head is normocephalic, atraumatic. Eyes: PERRLA. EOMI. NECK: Supple with no palpable lymphadenopathy. RESPIRATORY: Clear to auscultation bilaterally. CARDIOVASCULAR: Regular rate and rhythm. No murmurs. ABDOMEN: Soft, nontender, nondistended. Bowel sounds present. EXTREMITIES: No edema. NEUROLOGIC: Grossly nonfocal. PSYCHIATRIC: Appropriate mood and affect. ASSESSMENT AND PLAN: 1. Metastatic breast cancer with sacral mass and pelvic bony lesions currently on aromatase inhibitor and will continue this medication. 2. Bony metastatic disease, currently receiving denosumab therapy. 3. Pain, acute on chronic, with worsening since her fall in late December and evidence of sacral insufficiency fracture. Orthopedic service has been consulted. Neurosurgery service has been consulted. We will continue with pain management. MD JEFF Milan/olga/wallace , 09:27 PM , 09:35 PM
[2018-03-11] MEDS: Morphine Sulfate 15 MG SR Tablet PO SCH ×4 (00:37→23:45)
[2018-03-11] MEDS: HYDROmorphone PF Inj 2 MG/ML Vial IV.PUSH PRN ×4 (03:39→23:46)
[2018-03-11] MEDS: dilTIAZem CD 180 MG Capsule PO SCH (08:45)
[2018-03-11] MEDS: Docusate Sodium 100 MG Capsule PO SCH ×2 (08:45→21:16)
[2018-03-11] MEDS: Anastrozole 1 MG Tablet PO SCH (08:45)
[2018-03-11] MEDS: Hydroxychloroquine 200 MG Tablet PO SCH ×2 (08:45→21:16)
[2018-03-11] MEDS: predniSONE 10 MG Tablet PO SCH (08:46)
[2018-03-11] MEDS: UMECLIDINIUM INH SCH (08:47)
--- NOTE | 2018-03-11 12:02 | P.PN ---
Subjective Interval history: Follow-up bony metastases disease/pathology left hip fracture/intractable pain March 11, 2018-patient seen and examined, states pain level unchanged mostly with activity. Otherwise no other issues Physical Exam Vital signs: Vital Signs 03/10/18 13:54 03/10/18 14:00 03/10/18 15:00 Temperature 98.3 F 97.9 F Pulse Rate 63 63 61 Respiratory Rate 18 18 Blood Pressure 156/78 H 156/68 H Pulse Oximetry 95 96 03/10/18 17:37 03/10/18 20:00 03/11/18 00:00 Temperature 98.2 F 98.4 F Pulse Rate 64 65 Respiratory Rate 18 18 Blood Pressure 149/72 H 154/71 H Pulse Oximetry 95 97 96 03/11/18 04:00 03/11/18 08:00 03/11/18 09:14 Temperature 98.3 F 98.7 F Pulse Rate 67 73 69 Respiratory Rate 17 21 16 Blood Pressure 152/72 H 167/86 H Pulse Oximetry 95 95 96 Intake & Output 03/10/18 03/11/18 03/11/18 18:59 06:59 18:59 Intake Total 720 / 720 480 / 480 Output Total 700 / 700 1400 / 1400 Balance -920 / -920 Weight 76 kg Intake: Oral 720 / 720 480 / 480 Output: Urine 700 / 700 1400 / 1400 Other: Date of Last Bowel Movement 03/08/18 03/09/18 # Bowel Movements 0 Narrative: GENERAL: NAD SKIN: Warm and dry. HEAD: Normocephalic. EYES: No scleral icterus. No injection or drainage. NECK: Supple, trachea midline. No JVD or lymphadenopathy. CARDIOVASCULAR: Regular rate and rhythm without murmurs, gallops, or rubs. RESPIRATORY: Breath sounds equal bilaterally. No accessory muscle use. GASTROINTESTINAL: Abdomen soft, non-tender, nondistended. MUSCULOSKELETAL: No cyanosis, or edema. BACK: Nontender without obvious deformity. No CVA tenderness. Results - Labs CBC & Chem 7: 03/10/18 15:00 03/10/18 15:00 Laboratory Results - last 24 hr 03/10/18 03/10/18 15:00 15:00 WBC 8.7 RBC 4.37 Hgb 14.3 Hct 42.7 MCV 97.6 MCH 32.7 MCHC 33.5 RDW 13.7 Plt Count 140 L MPV 9.7 Neut % (Auto) 86.0 H Lymph % (Auto) 4.5 L Daniels % (Auto) 8.9 H Eos % (Auto) 0.2 Baso % (Auto) 0.4 Neut # (Auto) 7.5 Lymph # (Auto) 0.4 L Daniels # (Auto) 0.8 Eos # (Auto) 0.0 Baso # (Auto) 0.0 WBC Differential . Differential Comment Auto diff final Sodium 140 Potassium 4.3 Chloride 102 Carbon Dioxide 30.6 Anion Gap 7 BUN 21 H Creatinine 0.62 Estimated GFR Greater than 89 Random Glucose 106 Calcium 8.7 - Imaging Impressions Pelvis CT 03/10/18 00:00 CONCLUSION: 1. No evidence of acute intrapelvic process. 2. Bony changes suggestive of metastatic disease are again noted and unchanged compared to September 2017. A lytic destructive lesion is noted within the left pedicle and transverse process of L5 as well as within the medial aspect of the right iliac bone. Scattered smaller lesions are more difficult to identify on today's examination. Assessment and Plan - Plan 77-year-old female with Bony metastases disease Intractable pain History of pathology left hip fracture Neurosurgical and orthopedic consultation pending PT to treat and eval Appreciate input from oncology Continue with pain management Breast cancer with metastases disease Management per oncology COPD- uses oxygen at home. with no exacerbation; neb treatment as needed. Hypertension Continue home medication RA stable on home medications -DVT prophylaxis; with SCD's
--- NOTE | 2018-03-11 13:08 | P.CONNS ---
History of Present Illness Service: Neurosurgery Consult date: 03/11/18 Reason for Consult: L5 metastases Primary Care Provider: Chelsie Puente MD Chief Complaint: hip pain History of Present Illness: 77-year-old obese female with a history of metastatic breast cancer to the sacrum and pelvis. She started experiencing back pain about 5 months ago and was diagnosed with a right sided sacral metastases and underwent radiation therapy which she completed about 3 months ago. Approximately 2 months ago she fell after tripping and subsequently noticed worsening back pain mostly in the left sacral aspect and at times radiates onto the posterior buttock and thigh but not into the foot. She has had chronic numbness in her feet bilaterally for several years. Denies any right lower extremity symptoms. Her primary care physician ordered an MRI scan of the lumbar spine which reveals L5 pedicle expansile mass which extends to the body along with the sacral ala mass and possible fracture. CT of the abdomen and pelvis does reveal the sacral ala fracture and orthopedic surgery has been consulted and requested nonsurgical management. Review of the MRI scan of the lumbar spine at the outside facility shows this L5 pedicle mass which expands the pedicle and extends slightly into the body with no extensive destruction of the vertebral body noted along with the sacral alar mass. There is a stenosis of the spine mostly from degenerative changes and facet hypertrophy and most prominent at the L4-5 level. She denies any bowel bladder incontinence and complains of constipation. She is also scheduled to see Dr. Wolf from interventional pain management for her low back pain. Review of Systems All other systems reviewed negative except as stated in HPI PMFSH - History History Provided By: Patient - Medical History Medical History: Medical History (Last Updated 03/10/18 @ 14:41 by Blanche Giraldo MD) Breast cancer COPD (chronic obstructive pulmonary disease) Hypertension Rheumatoid arthritis - Surgical History Surgical History: Surgical History (Last Updated 03/10/18 @ 14:42 by Blanche Giraldo MD) Previous section - Family History Family History: Family History (Last Updated 03/10/18 @ 14:42 by Blanche Giraldo MD) Other History of throat cancer - Tobacco History Second Hand Smoke Exposure: No Tobacco Use In Past 30 Days: No Smoking Status: Former smoker Tobacco Type: Cigarettes - Alcohol History How Often Do You Have a Drink Containing Alcohol: Monthly or less - Substance Use History Substance History: No History of Abuse - Travel History Recent Travel in the [place] Within the Last 8 Weeks: No Recent Travel Out of the Country Within the Last 8 Weeks: No - Immunization History Tetanus Immunization: <5 Years Hx Influenza Vaccine This Season: Yes Medications and Allergies Active Medications: Active Medications Albuterol (Duoneb Neb (Prn)) 1 ampul NEB Q6HR NEB PRN PRN Reason: sob Last Admin: 03/11/18 09:11 Dose: 1 ampul Anastrozole (Arimidex) 1 mg PO DAILY [facility] Last Admin: 03/11/18 08:45 Dose: 1 mg Diltiazem HCl (Cardizem Cd 24hr) 180 mg PO DAILY [facility] Last Admin: 03/11/18 08:45 Dose: 180 mg Docusate Sodium (Colace) 100 mg PO BID [facility] Last Admin: 03/11/18 08:45 Dose: 100 mg Hydromorphone HCl (Dilaudid Pf Inj) 1 mg IV.PUSH Q4H PRN PRN Reason: breakthrough pain Last Admin: 03/11/18 11:36 Dose: 1 mg Hydroxychloroquine Sulfate (Plaquenil) 200 mg PO BID [facility] Last Admin: 03/11/18 08:45 Dose: 200 mg Miscellaneous (Pill Splitter) 1 each OTHER [facility] Morphine Sulfate (Oramorph Sr) 15 mg PO Q8H [facility] Last Admin: 03/11/18 08:46 Dose: 15 mg Paroxetine HCl (Paxil) 10 mg PO DAILY [facility] Last Admin: 03/11/18 08:46 Dose: 10 mg Pt Own Umeclidinium [Incruse Ellipta] 1 Inh) 0 each INH Q24H [facility] Last Admin: 03/11/18 08:47 Dose: 1 each Prednisone (Deltasone) 10 mg PO DAILY [facility] Last Admin: 03/11/18 08:46 Dose: 10 mg Allergies Allergy/AdvReac Type Severity Reaction Status Date / Time shellfish derived Allergy Severe Anaphylaxis Verified 03/10/18 20:40 Home Medications Medication Instructions Recorded Confirmed Type anastrozole 1 mg PO DAILY 03/10/18 03/10/18 History denosumab [Xgeva] 120 mg SUB-Q Q4W 03/10/18 03/10/18 History diltiazem HCl 180 mg PO DAILY 03/10/18 03/10/18 History hydroxychloroquine [Plaquenil] 200 mg PO BID 03/10/18 03/10/18 History ipratropium-albuterol 3 ml INHALATION Q12H 03/10/18 03/10/18 History morphine 15 mg PO Q12H 03/10/18 03/10/18 History oxycodone 5 mg PO Q4-6H PRN 03/10/18 03/10/18 History paroxetine HCl [Paxil] 10 mg PO DAILY 03/10/18 03/10/18 History prednisone 10 mg PO DAILY 03/10/18 03/10/18 History umeclidinium [Incruse Ellipta] 1 inh INHALATION Q24H 03/10/18 03/10/18 History Exam Vital signs: Vital Signs 03/10/18 13:54 03/10/18 14:00 03/10/18 15:00 Temperature 98.3 F 97.9 F Pulse Rate 63 63 61 Respiratory Rate 18 18 Blood Pressure 156/78 H 156/68 H Pulse Oximetry 95 96 03/10/18 17:37 03/10/18 20:00 03/11/18 00:00 Temperature 98.2 F 98.4 F Pulse Rate 64 65 Respiratory Rate 18 18 Blood Pressure 149/72 H 154/71 H Pulse Oximetry 95 97 96 03/11/18 04:00 03/11/18 08:00 03/11/18 09:14 Temperature 98.3 F 98.7 F Pulse Rate 67 65 69 Respiratory Rate 17 21 16 Blood Pressure 152/72 H 167/86 H Pulse Oximetry 95 95 96 03/11/18 12:00 Temperature 98.2 F Pulse Rate 66 Respiratory Rate 16 Blood Pressure 153/76 H Pulse Oximetry 95 Intake & Output 03/10/18 03/11/18 03/11/18 18:59 06:59 18:59 Intake Total 720 / 720 480 / 480 Output Total 700 / 700 1400 / 1400 Balance 20 / 20 -920 / -920 Weight 76 kg Intake: Oral 720 / 720 480 / 480 Output: Urine 700 / 700 1400 / 1400 Other: Date of Last Bowel Movement 03/08/18 03/09/18 # Bowel Movements 0 - Constitutional no acute distress, obese - Routine HEENT Exam Head: Present: normocephalic, atraumatic Eye: Present: EOMI, PERRL ENT: Present: mucous membranes moist, oropharynx clear, nares patent, external ear normal - Routine Neck Exam Present: supple, full ROM - Routine Respiratory Exam Present: CTA bilaterally - Routine Cardiovascular Exam Present: RRR, S1, S2 - Routine Abdominal Exam Present: soft, normoactive bowel sounds - Routine Extremities Exam Present: full ROM - Routine Skin Exam Present: intact - Routine Neurological Exam Present: oriented X3, CN II-XII intact, plantar reflex, moving all extremities, normal tone, normal speech Results - Laboratory Findings CBC and BMP: 03/10/18 15:00 03/10/18 15:00 Abnormal lab findings: Abnormal Labs 03/10/18 03/10/18 15:00 15:00 Plt Count 140 L Neut % (Auto) 86.0 H Lymph % (Auto) 4.5 L Meeker % (Auto) 8.9 H Lymph # (Auto) 0.4 L BUN 21 H - Diagnostic Findings Additional findings: Pelvis CT 03/10/18 00:00 CONCLUSION: 1. No evidence of acute intrapelvic process. 2. Bony changes suggestive of metastatic disease are again noted and unchanged compared to September 2017. A lytic destructive lesion is noted within the left pedicle and transverse process of L5 as well as within the medial aspect of the right iliac bone. Scattered smaller lesions are more difficult to identify on today's examination. Assessment and Plan - Assessment (1) Lumbar spine tumor Code(s): D49.2 - Neoplasm of unspecified behavior of bone, soft tissue, and skin Status: Acute (2) Sacral insufficiency fracture Code(s): M84.48XA - Pathological fracture, other site, initial encounter for fracture Status: Acute - Plan 77-year-old lady with a history of metastatic breast cancer is undergone radiation therapy to the right sacral metastases a few months ago and now has pain in the left sacral area with associated metastases/insufficiency fracture. She has metastatic lesion involving the left L5 pedicle and spinal stenosis from degenerative changes at the L4-5 level being the most prominent. It appears as most of her symptoms are related to the sacral insufficiency fracture. She also has medical comorbidities in particular advanced COPD with home oxygen use. I agree with nonsurgical management of her lumbar sacral fractures with consideration of further radiation therapy if feasible and pain management. She is not interested in any surgical intervention and is agreeable to continued nonsurgical management. We will see her on an as-needed basis.
--- NOTE | 2018-03-11 19:14 | P.PNONC ---
Subjective Interval history: Resting in comfortably in bedside chair. Pain is well controlled with current pain medication regimen. Objective Vital Signs/Intake & Output: Vital Signs 03/10/18 20:00 03/11/18 00:00 03/11/18 04:00 Temperature 98.2 F 98.4 F 98.3 F Pulse Rate 64 65 67 Respiratory Rate 18 18 17 Blood Pressure 149/72 H 154/71 H 152/72 H Pulse Oximetry 97 96 95 03/11/18 08:00 03/11/18 09:14 03/11/18 12:00 Temperature 98.7 F 98.2 F Pulse Rate 65 69 66 Respiratory Rate 21 16 16 Blood Pressure 167/86 H 153/76 H Pulse Oximetry 95 96 95 03/11/18 16:00 Temperature 98.2 F Pulse Rate 63 Respiratory Rate 19 Blood Pressure 157/74 H Pulse Oximetry 94 L Intake & Output 03/11/18 03/11/18 03/12/18 06:59 18:59 06:59 Intake Total 480 / 480 Output Total 1400 / 1400 Balance -920 / -920 Weight 76 kg Intake: Oral 480 / 480 Output: Urine 1400 / 1400 Other: Date of Last Bowel Movement 03/09/18 Result Diagrams: 03/10/18 15:00 03/10/18 15:00 Imaging Studies: Impressions Pelvis CT 03/10/18 00:00 CONCLUSION: 1. No evidence of acute intrapelvic process. 2. Bony changes suggestive of metastatic disease are again noted and unchanged compared to September 2017. A lytic destructive lesion is noted within the left pedicle and transverse process of L5 as well as within the medial aspect of the right iliac bone. Scattered smaller lesions are more difficult to identify on today's examination. Medications: Active Medications Generic Name Dose Route Start Last Admin Trade Name Freq PRN Reason Stop Dose Admin Albuterol 1 ampul 03/10/18 14:34 03/11/18 09:11 Duoneb Neb (Prn) NEB 1 ampul Q6HR NEB PRN Administration sob Anastrozole 1 mg 03/11/18 09:00 03/11/18 08:45 Arimidex PO 1 mg DAILY [facility] Administration Diltiazem HCl 180 mg 03/11/18 09:00 03/11/18 08:45 Cardizem Cd 24hr PO 180 mg DAILY [facility] Administration Docusate Sodium 100 mg 03/10/18 21:00 03/11/18 08:45 Colace PO 100 mg BID [facility] Administration Hydromorphone HCl 1 mg 03/10/18 14:57 03/11/18 16:17 Dilaudid Pf Inj IV.PUSH 1 mg Q4H PRN Administration breakthrough pain Hydroxychloroquine Sulfate 200 mg 03/10/18 21:00 03/11/18 08:45 Plaquenil PO 200 mg BID [facility] Administration Morphine Sulfate 15 mg 03/10/18 16:00 03/11/18 16:19 Oramorph Sr PO 15 mg Q8H [facility] Administration Paroxetine HCl 10 mg 03/11/18 09:00 03/11/18 08:46 Paxil PO 10 mg DAILY [facility] Administration Pt Own Umeclidinium 0 each 03/11/18 09:00 03/11/18 08:47 [Incruse Ellipta] 1 INH 1 each Inh) Q24H [facility] Administration Prednisone 10 mg 03/11/18 09:00 03/11/18 08:46 Deltasone PO 10 mg DAILY [facility] Administration Objective Remarks: GENERAL: Well-nourished, well-developed patient. SKIN: Warm and dry. HEAD: Normocephalic. EYES: No scleral icterus. No injection or drainage. NECK: Supple, trachea midline. No JVD or lymphadenopathy. LYMPHATIC: No adenopathy. RESPIRATORY: No accessory muscle use. GASTROINTESTINAL: Abdomen soft, non-tender, nondistended. EXTREMITIES: No cyanosis, or edema. MUSCULOSKELETAL: Adequate muscle tone. NEUROLOGICAL: No obvious focal deficit. Awake, alert, and oriented x3. PSYCHIATRIC: Appropriate mood and affect; insight and judgment normal. Assessment/Plan - Plan 1. Metastatic breast cancer: no evidence of disease outside of pelvis from recent PET CT. Recent MRI with evidence of local progression. Will plan to continue anastrozole at this time. once discharged from hospital will have follow up in clinic to discuss Ibrance and alternative AI. 2. Pain due to sacral fracture: well controlled at this time on this medication regimen. Will plan for sacroplasty by IR team tomorrow. 3. Sacral fracture, metastatic disease, DDD: she has been evaluated by NSGY and ortho teams.
[2018-03-12] MEDS: HYDROmorphone PF Inj 2 MG/ML Vial IV.PUSH PRN ×4 (05:28→21:55)
[2018-03-12] MEDS: Hydroxychloroquine 200 MG Tablet PO SCH ×2 (09:06→21:55)
[2018-03-12] MEDS: Morphine Sulfate 15 MG SR Tablet PO SCH ×2 (09:07→18:07)
[2018-03-12] MEDS: Anastrozole 1 MG Tablet PO SCH (09:08)
[2018-03-12] MEDS: dilTIAZem CD 180 MG Capsule PO SCH (09:10)
[2018-03-12] MEDS: UMECLIDINIUM INH SCH (09:10)
[2018-03-12] MEDS: Docusate Sodium 100 MG Capsule PO SCH ×2 (09:10→21:55)
[2018-03-12] MEDS: predniSONE 10 MG Tablet PO SCH (09:11)
--- NOTE | 2018-03-12 09:40 | P.PNONC ---
Subjective Interval history: Patient sitting in recliner, in no acute distress. Patient verbalizes that she is very upset because she is waiting on her labs to be drawn prior to her sacral plasty today. She appears very anxious about this. Her back pain is currently controlled on pain medication, however patient dislikes taking it as she states it makes her sleep all day. Objective Vital Signs/Intake & Output: Vital Signs 03/11/18 12:00 03/11/18 16:00 03/11/18 18:00 Temperature 98.2 F 98.2 F Pulse Rate 66 63 66 Respiratory Rate 16 19 Blood Pressure 153/76 H 157/74 H Pulse Oximetry 95 94 L 03/11/18 20:17 03/12/18 00:00 03/12/18 01:33 Temperature 97.8 F 98.5 F Pulse Rate 69 63 Respiratory Rate 17 16 16 Blood Pressure 156/70 H 149/73 H Pulse Oximetry 94 L 94 L 03/12/18 01:34 03/12/18 04:00 03/12/18 05:58 Temperature 98.3 F Pulse Rate 75 Respiratory Rate 16 18 16 Blood Pressure 136/71 Pulse Oximetry 94 L 03/12/18 07:48 03/12/18 08:17 Temperature 98.2 F Pulse Rate 64 71 Respiratory Rate 18 Blood Pressure 157/91 H Pulse Oximetry 95 Intake & Output 03/11/18 03/12/18 03/12/18 18:59 06:59 18:59 Intake Total 600 / 600 Output Total 1000 / 1000 Balance 600 / 600 -1000 / -1000 Intake: Oral 600 / 600 Output: Urine 1000 / 1000 Other: Date of Last Bowel Movement 03/09/18 Result Diagrams: 03/10/18 15:00 03/10/18 15:00 Medications: Active Medications Generic Name Dose Route Start Last Admin Trade Name Freq PRN Reason Stop Dose Admin Albuterol 1 ampul 03/10/18 14:34 03/11/18 09:11 Duoneb Neb (Prn) NEB 1 ampul Q6HR NEB PRN Administration sob Anastrozole 1 mg 03/11/18 09:00 03/12/18 09:08 Arimidex PO 1 mg DAILY SARA Administration Diltiazem HCl 180 mg 03/11/18 09:00 03/12/18 09:10 Cardizem Cd 24hr PO 180 mg DAILY SARA Administration Docusate Sodium 100 mg 03/10/18 21:00 03/12/18 09:10 Colace PO 100 mg BID SARA Administration Hydromorphone HCl 1 mg 03/10/18 14:57 03/12/18 09:08 Dilaudid Pf Inj IV.PUSH 1 mg Q4H PRN Administration breakthrough pain Hydroxychloroquine Sulfate 200 mg 03/10/18 21:00 03/12/18 09:06 Plaquenil PO 200 mg BID SARA Administration Morphine Sulfate 15 mg 03/10/18 16:00 03/12/18 09:07 Oramorph Sr PO 15 mg Q8H SARA Administration Paroxetine HCl 10 mg 03/11/18 09:00 03/12/18 09:07 Paxil PO 10 mg DAILY SARA Administration Pt Own Umeclidinium 0 each 03/11/18 09:00 03/12/18 09:10 [Incruse Ellipta] 1 INH 1 each Inh) Q24H SARA Administration Prednisone 10 mg 03/11/18 09:00 03/12/18 09:11 Deltasone PO 10 mg DAILY SARA Administration Objective Remarks: GENERAL: Elderly female patient patient, in no acute distress. SKIN: Warm and dry. Ecchymotic areas to bilateral shins. HEAD: Normocephalic. EYES: No scleral icterus. No injection or drainage. NECK: Supple, trachea midline. CARDIOVASCULAR: Regular rate and rhythm without murmurs. RESPIRATORY: Anterior breath sounds clear, equal bilaterally. No accessory muscle use. GASTROINTESTINAL: Abdomen soft, non-tender, nondistended. EXTREMITIES: No cyanosis, or edema. MUSCULOSKELETAL: Adequate muscle tone. NEUROLOGICAL: No obvious focal deficit. Awake, alert, and oriented x3. PSYCHIATRIC: Appropriate mood and affect; insight and judgment normal. Assessment/Plan - Plan This is a pleasant 77-year-old female patient with a history of metastatic breast cancer. Recent MRI with evidence of local progression, recent PET/CT showed no evidence of disease outside of the pelvis. Patient with pain due to a sacral fracture. Plan: 1. Metastatic breast cancer. Upon discharge the patient will follow-up in the outpatient clinic to discuss Ibrance and alternative AI. 2. Pain due to sacral fracture: Awaiting sacroplasty by IR team today. 3. Continue pain management as needed, monitor for sedation. - Attending Statement The exam, history, and the medical decision-making described in the above note were completed with the assistance of the mid-level provider. I reviewed and agree with the findings presented. I attest that I had a [id number] encounter with the patient on the same day, and personally performed and documented my assessment and findings in the medical record. 77 yoF with metastatic breast cancer admitted with intractable pain due to sacral fracture. Pain is dulled with current regimen. Unable to perform sacroplasty today. Will plan to perform tomorrow. Will follow up in clinic to discuss further treatment options.
[2018-03-12 10:05] LABS: Prothrombin Time 10.1 sec (9.8-11.6)
--- NOTE | 2018-03-12 10:36 | P.PN ---
Subjective Interval history: Follow-up bony metastases disease/pathology left hip fracture/intractable pain March 11, 2018-patient seen and examined, states pain level unchanged mostly with activity. Otherwise no other issues March 12, 2018-patient seen and examined, complaining of pelvic discomfort and pain. Currently n.p.o. pending kyphoplasty Physical Exam Vital signs: Vital Signs 03/11/18 12:00 03/11/18 16:00 03/11/18 18:00 Temperature 98.2 F 98.2 F Pulse Rate 66 63 66 Respiratory Rate 16 19 Blood Pressure 153/76 H 157/74 H Pulse Oximetry 95 94 L 03/11/18 20:17 03/12/18 00:00 03/12/18 01:33 Temperature 97.8 F 98.5 F Pulse Rate 69 63 Respiratory Rate 17 16 16 Blood Pressure 156/70 H 149/73 H Pulse Oximetry 94 L 94 L 03/12/18 01:34 03/12/18 04:00 03/12/18 05:58 Temperature 98.3 F Pulse Rate 75 Respiratory Rate 16 18 16 Blood Pressure 136/71 Pulse Oximetry 94 L 03/12/18 07:48 03/12/18 08:17 Temperature 98.2 F Pulse Rate 64 71 Respiratory Rate 18 Blood Pressure 157/91 H Pulse Oximetry 95 Intake & Output 03/11/18 03/12/18 03/12/18 18:59 06:59 18:59 Intake Total 600 / 600 Output Total 1000 / 1000 Balance 600 / 600 -1000 / -1000 Intake: Oral 600 / 600 Output: Urine 1000 / 1000 Other: Date of Last Bowel Movement 03/09/18 Narrative: GENERAL: NAD SKIN: Warm and dry. HEAD: Normocephalic. EYES: No scleral icterus. No injection or drainage. NECK: Supple, trachea midline. No JVD or lymphadenopathy. CARDIOVASCULAR: Regular rate and rhythm without murmurs, gallops, or rubs. RESPIRATORY: Breath sounds equal bilaterally. No accessory muscle use. GASTROINTESTINAL: Abdomen soft, non-tender, nondistended. MUSCULOSKELETAL: No cyanosis, or edema. BACK: Nontender without obvious deformity. No CVA tenderness. Results - Labs CBC & Chem 7: 03/10/18 15:00 03/10/18 15:00 Laboratory Results - last 24 hr 03/12/18 03/12/18 09:35 09:35 PT 10.1 INR 1.0 APTT 21.8 L Assessment and Plan - Plan 77-year-old female with Bony metastases disease Intractable pain History of pathology left hip fracture/sacral fracture Neurosurgical and orthopedic ff and recommended medical management Plan for kyphoplasty today by interventional radiology PT to treat and eval Appreciate input from oncology Continue with pain management Breast cancer with metastases disease Management per oncology COPD- uses oxygen at home. with no exacerbation; neb treatment as needed. Hypertension Continue home medication RA stable on home medications -DVT prophylaxis; with SCD's
[2018-03-13] MEDS: Morphine Sulfate 15 MG SR Tablet PO SCH ×3 (00:29→16:08)
[2018-03-13] MEDS: HYDROmorphone PF Inj 2 MG/ML Vial IV.PUSH PRN ×3 (05:55→16:05)
[2018-03-13] MEDS: predniSONE 10 MG Tablet PO SCH (10:36)
[2018-03-13] MEDS: Hydroxychloroquine 200 MG Tablet PO SCH ×2 (10:37→21:06)
[2018-03-13] MEDS: Anastrozole 1 MG Tablet PO SCH (10:38)
[2018-03-13] MEDS: dilTIAZem CD 180 MG Capsule PO SCH (10:38)
[2018-03-13] MEDS: Docusate Sodium 100 MG Capsule PO SCH ×2 (10:41→21:08)
--- NOTE | 2018-03-13 11:09 | P.PNONC ---
Subjective Interval history: Afebrile Patient sitting up on side of bed She is distraught that she did not get her morning meds until after 10 AM Anxious about getting procedure done today Hoping to be discharged at latest tomorrow a.m. Objective Vital Signs/Intake & Output: Vital Signs 03/12/18 12:00 03/12/18 16:00 03/12/18 17:00 Temperature 98 F 98.1 F Pulse Rate 66 81 80 Respiratory Rate 20 16 Blood Pressure 166/86 H 150/75 H Pulse Oximetry 93 L 96 03/12/18 20:00 03/12/18 22:25 03/13/18 00:19 Temperature 98.2 F 98.3 F Pulse Rate 70 69 Respiratory Rate 17 17 18 Blood Pressure 144/74 H 165/91 H Pulse Oximetry 95 94 L 03/13/18 00:59 03/13/18 05:59 Temperature 98.3 F Pulse Rate 69 Respiratory Rate 15 19 Blood Pressure 146/73 H Pulse Oximetry 93 L Intake & Output 03/12/18 03/13/18 03/13/18 18:59 06:59 18:59 Intake Total 120 / 120 480 / 480 Output Total 1500 / 1500 Balance 120 / 120 -1020 / -1020 Weight 166 lb 10.711 oz Intake: Oral 120 / 120 480 / 480 Output: Urine 1500 / 1500 Other: Date of Last Bowel Movement 03/12/18 Result Diagrams: 03/10/18 15:00 03/10/18 15:00 Medications: Active Medications Generic Name Dose Route Start Last Admin Trade Name Freq PRN Reason Stop Dose Admin Albuterol 1 ampul 03/10/18 14:34 03/11/18 09:11 Duoneb Neb (Prn) NEB 1 ampul Q6HR NEB PRN Administration sob Anastrozole 1 mg 03/11/18 09:00 03/13/18 10:38 Arimidex PO 1 mg DAILY SARA Administration Diltiazem HCl 180 mg 03/11/18 09:00 03/13/18 10:38 Cardizem Cd 24hr PO 180 mg DAILY SARA Administration Docusate Sodium 100 mg 03/10/18 21:00 03/13/18 10:41 Colace PO Not Given BID SARA Hydromorphone HCl 1 mg 03/10/18 14:57 03/13/18 10:29 Dilaudid Pf Inj IV.PUSH 1 mg Q4H PRN Administration breakthrough pain Hydroxychloroquine Sulfate 200 mg 03/10/18 21:00 03/13/18 10:37 Plaquenil PO 200 mg BID SARA Administration Morphine Sulfate 15 mg 03/10/18 16:00 03/13/18 10:40 Oramorph Sr PO 15 mg Q8H SARA Administration Paroxetine HCl 10 mg 03/11/18 09:00 03/13/18 10:34 Paxil PO 10 mg DAILY SARA Administration Pt Own Umeclidinium 0 each 03/11/18 09:00 03/12/18 09:10 [Incruse Ellipta] 1 INH 1 each Inh) Q24H SARA Administration Prednisone 10 mg 03/11/18 09:00 03/13/18 10:36 Deltasone PO 10 mg DAILY SARA Administration Objective Remarks: GENERAL: Elderly female sitting up on side of bed in no obvious distress SKIN: Warm and dry. HEAD: Normocephalic. EYES: No scleral icterus. No injection or drainage. NECK: Supple, trachea midline. CARDIOVASCULAR: Regular rate and rhythm without murmurs. RESPIRATORY: Clear posteriorly. Breathing unlabored at rest. GASTROINTESTINAL: Abdomen soft, non-tender, nondistended. EXTREMITIES: No cyanosis, or edema. MUSCULOSKELETAL: Adequate muscle tone. NEUROLOGICAL: No obvious focal deficit. Awake, alert, and oriented x3. Assessment/Plan - Plan This is a pleasant 77-year-old female patient with a history of metastatic breast cancer. Recent MRI with evidence of local progression, recent PET/CT showed no evidence of disease outside of the pelvis. Patient with pain due to a sacral fracture. 1. Patient scheduled for sacral plasty today at approximately 2 PM 2. Continue pain management as needed, monitor for sedation. 3. Follow-up in clinic once discharged for further breast cancer management. - Attending Statement The exam, history, and the medical decision-making described in the above note were completed with the assistance of the mid-level provider. I reviewed and agree with the findings presented. I attest that I had a [id number] encounter with the patient on the same day, and personally performed and documented my assessment and findings in the medical record. 77 yoF with metastatic breast cancer to the lumbar spine, sacrum. PET CT with no further disease progression MRI with localized progression of disease. s/p fall and admitted with intractable pain from sacral insufficiency fracture. -breast cancer, progression: will discuss alternate AI and Ibrance in the outpatient setting. apt set up for Friday03/17/2018 -pain control: currently on extended release morphine 15 mg TID. If pain is much improved from sacroplasty will titrate down on pain medications -: due to pain medications, pain, hospitalization. waxing and waning
[2018-03-13] MEDS: UMECLIDINIUM INH SCH (11:37)
--- NOTE | 2018-03-13 11:39 | P.PN ---
Subjective Interval history: Follow-up bony metastases disease/pathology left hip fracture/intractable pain March 11, 2018-patient seen and examined, states pain level unchanged mostly with activity. Otherwise no other issues March 12, 2018-patient seen and examined, complaining of pelvic discomfort and pain. Currently n.p.o. pending kyphoplasty March 13, 2018-patient seen and examined, sacral plasty not performed yesterday however plan for a today. Patient's quite anxious. Physical Exam Vital signs: Vital Signs 03/12/18 12:00 03/12/18 16:00 03/12/18 17:00 Temperature 98 F 98.1 F Pulse Rate 66 81 80 Respiratory Rate 20 16 Blood Pressure 166/86 H 150/75 H Pulse Oximetry 93 L 96 03/12/18 20:00 03/12/18 22:25 03/13/18 00:19 Temperature 98.2 F 98.3 F Pulse Rate 70 69 Respiratory Rate 17 17 18 Blood Pressure 144/74 H 165/91 H Pulse Oximetry 95 94 L 03/13/18 00:59 03/13/18 05:59 03/13/18 08:00 Temperature 98.3 F 98.2 F Pulse Rate 69 77 Respiratory Rate 15 19 Blood Pressure 146/73 H 161/88 H Pulse Oximetry 93 L 93 L Intake & Output 03/12/18 03/13/18 03/13/18 18:59 06:59 18:59 Intake Total 120 / 120 480 / 480 Output Total 1500 / 1500 Balance 120 / 120 -1020 / -1020 Weight 75.6 kg Intake: Oral 120 / 120 480 / 480 Output: Urine 1500 / 1500 Other: Date of Last Bowel Movement 03/12/18 Narrative: GENERAL: NAD SKIN: Warm and dry. HEAD: Normocephalic. EYES: No scleral icterus. No injection or drainage. NECK: Supple, trachea midline. No JVD or lymphadenopathy. CARDIOVASCULAR: Regular rate and rhythm without murmurs, gallops, or rubs. RESPIRATORY: Breath sounds equal bilaterally. No accessory muscle use. GASTROINTESTINAL: Abdomen soft, non-tender, nondistended. MUSCULOSKELETAL: No cyanosis, or edema. BACK: Nontender without obvious deformity. No CVA tenderness. Results - Labs CBC & Chem 7: 03/10/18 15:00 03/10/18 15:00 Assessment and Plan - Plan 77-year-old female with Bony metastases disease Intractable pain History of pathology left hip fracture/sacral fracture Neurosurgical and orthopedic ff and recommended medical management Plan for Sacral plasty today by interventional radiology PT to treat and eval Appreciate input from oncology Continue with pain management Breast cancer with metastases disease Management per oncology COPD- uses oxygen at home. with no exacerbation; neb treatment as needed. Hypertension Continue home medication RA stable on home medications -DVT prophylaxis; with SCD's
[2018-03-13] MEDS ORDERED: Ketamine Inj 50 MG/5 ML Syringe IV.PUSH ONE (12:25)
[2018-03-13] MEDS ORDERED: Glycopyrrolate Inj 1 MG/5 ML Syringe IV.PUSH ONE (13:38)
[2018-03-13] MEDS ORDERED: hydrALAZINE HCl Inj 20 MG/ML Vial IV.PUSH ONE (13:38)
[2018-03-13] MEDS ORDERED: Lidocaine PF 1% Inj 5 ML Syringe INFILTRATN ONE (13:38)
[2018-03-13] MEDS ORDERED: Neostigmine Inj 5 MG/5 ML Syringe IV.PUSH ONE (13:38)
[2018-03-13] MEDS ORDERED: ceFAZolin 2 GM Premix Inj 2 GM/100 ML BAG IV.SIG ONE (14:00)
--- NOTE | 2018-03-13 14:23 | P.RAD ---
Post Procedure Progress Note - Procedure Information Procedure Date: 03/13/18 Supervising Radiologist: Jatin Burks MD Estimated blood loss (mL): 5 Anesthesia: General - Plan of Activity Patient to Unit: PACU Patient Condition: Good See PACS Report for procedural detail/treatment.
[2018-03-13] MEDS ORDERED: fentaNYL Citrate Inj 100 MCG/2 ML Ampul ONE (15:09)
--- NOTE | 2018-03-13 17:50 | IR ---
EXAM DATE: 03/13/2018 3:11 PM EDT AGE/SEX: 77 years / Female INDICATIONS: 77-year-old female with history of metastatic breast CA to the lumbar spine and sacrum with apparent insufficiency fracture in the left sacrum diagnosed by MRI and CT exam. Patient has irene y specific mechanical symptoms and has required hospital admission for pain control. Patient has stevan tional pain generators in the spine with spinal stenosis as well as central canal narrowing in the in ferior sacrum from tumor encroachment. However, patient has relatively minor radicular symptoms in co mparison. Therefore, sacroplasty is planned. CLINICAL DATA: This is the patient's initial encounter. Patient reports that signs and symptoms have been present for 2 months and indicates a pain score of 6/10. MEDICAL/SURGICAL HISTORY: . HTN, Asthma, COPD, Rheumatoid arthritis, Metastatic breast cancer. . Breast surgery. COMPARISON: No prior exams available for comparison. FLUORO TIME (min): 10.5 IMAGE SERIES: 7 ACCESS SITE: S1 MEDICATION(S): 2 g cefazolin (Ancef) IV Vancomycin within 2 hrs of procedure, Ancef (or alternative) within 1 hr of procedure. Anesthesia and pain control was provided by the Anesthesia department. DEVICE(S): 5 cc Vertaplex HV bone cement . . PROCEDURE: 1. Fluoroscopy and cone beam CT Sacroplasty. 2. Conscious sedation with continuous EKG and oximetry monitoring. The risks, benefits and alternatives to the procedure were explained and verbal and written consent w as obtained. The site was prepped in sterile fashion. Full sterile technique was used, including ca p, mask, sterile gloves and gown and a large sterile sheet. Hand hygiene and 2% chlorhexidine and/or betadine/alcohol prep was utilized per protocol for cutaneous antisepsis. The skin and subcutaneous tissues were infiltrated with local anesthetic solution. A 10-gauge trocar needle was advanced into the sacrum utilizing careful fluoroscopic guidance with in termittent Cone Beam CT to verify trajectory and final position. Cement was then injected through pus hers under careful fluoroscopic guidance. The prescribed cement volume was placed. There was no evide nce of cement extravasation. Conscious sedation was performed with the prescribed dosages and duration as above in the presence of an independent trained radiology nurse to assist in the monitoring of the patient. EKG and oximetry remained stable throughout the procedure. The patient tolerated the procedure well and there were n o complications. The patient was sent to post anesthesia recovery in stable condition. CONCLUSION: 1. Uncomplicated Sacrooplasty as above. Electronically signed by: Jatin Burks MD 03/13/2018 5:49 PM EDT
[2018-03-14] MEDS: Morphine Sulfate 15 MG SR Tablet PO SCH ×2 (00:05→09:04)
[2018-03-14] MEDS: HYDROmorphone PF Inj 2 MG/ML Vial IV.PUSH PRN (00:06)
[2018-03-14] MEDS: dilTIAZem CD 180 MG Capsule PO SCH (09:03)
[2018-03-14] MEDS: Hydroxychloroquine 200 MG Tablet PO SCH (09:03)
[2018-03-14] MEDS: UMECLIDINIUM INH SCH (09:04)
[2018-03-14] MEDS: predniSONE 10 MG Tablet PO SCH (09:04)
[2018-03-14] MEDS: Anastrozole 1 MG Tablet PO SCH (09:04)
[2018-03-14] MEDS: Docusate Sodium 100 MG Capsule PO SCH (09:05)
--- NOTE | 2018-03-14 10:23 | P.PNONC ---
Subjective Interval history: Afebrile Patient reports she is generally achy this morning Very anxious to go home Objective Vital Signs/Intake & Output: Vital Signs 03/13/18 14:39 03/13/18 14:45 03/13/18 15:00 Temperature 97.9 F Pulse Rate 95 H 90 85 Respiratory Rate 21 26 H 24 Blood Pressure 185/77 H 174/57 H 154/67 H Pulse Oximetry 99 98 95 03/13/18 15:15 03/13/18 15:37 03/13/18 19:16 Temperature 98.4 F Pulse Rate 83 83 Respiratory Rate 25 H 18 18 Blood Pressure 151/68 H 145/60 H Pulse Oximetry 95 96 03/13/18 20:00 03/14/18 00:00 03/14/18 04:00 Temperature 98.3 F 99.3 F 99.0 F Pulse Rate 85 78 96 H Respiratory Rate 18 18 18 Blood Pressure 122/54 L 151/69 H 152/84 H Pulse Oximetry 92 L 92 L 96 03/14/18 08:50 Temperature 97.6 F Pulse Rate 72 Respiratory Rate 18 Blood Pressure 143/78 H Pulse Oximetry 96 Intake & Output 03/13/18 03/14/18 03/14/18 18:59 06:59 18:59 Intake Total 240 / 240 Output Total 500 / 500 Balance -260 / -260 Weight 171 lb 11.841 oz Intake: Oral 240 / 240 Output: Urine 500 / 500 Other: Date of Last Bowel Movement 03/12/18 03/12/18 Result Diagrams: 03/10/18 15:00 03/10/18 15:00 Imaging Studies: Impressions Vertebroplasty 03/13/18 00:00 CONCLUSION: 1. Uncomplicated Sacrooplasty as above. Medications: Active Medications Generic Name Dose Route Start Last Admin Trade Name Freq PRN Reason Stop Dose Admin Albuterol 1 ampul 03/10/18 14:34 03/11/18 09:11 Duoneb Neb (Prn) NEB 1 ampul Q6HR NEB PRN Administration sob Anastrozole 1 mg 03/11/18 09:00 03/14/18 09:04 Arimidex PO 1 mg DAILY SARA Administration Diltiazem HCl 180 mg 03/11/18 09:00 03/14/18 09:03 Cardizem Cd 24hr PO 180 mg DAILY SARA Administration Docusate Sodium 100 mg 03/10/18 21:00 03/14/18 09:05 Colace PO Not Given BID SARA Hydromorphone HCl 1 mg 03/10/18 14:57 03/14/18 00:06 Dilaudid Pf Inj IV.PUSH 1 mg Q4H PRN Administration breakthrough pain Hydroxychloroquine Sulfate 200 mg 03/10/18 21:00 03/14/18 09:03 Plaquenil PO 200 mg BID SARA Administration Morphine Sulfate 15 mg 03/10/18 16:00 03/14/18 09:04 Oramorph Sr PO 15 mg Q8H SARA Administration Paroxetine HCl 10 mg 03/11/18 09:00 03/14/18 09:03 Paxil PO 10 mg DAILY SARA Administration Pt Own Umeclidinium 0 each 03/11/18 09:00 03/14/18 09:04 [Incruse Ellipta] 1 INH 1 each Inh) Q24H SARA Administration Prednisone 10 mg 03/11/18 09:00 03/14/18 09:04 Deltasone PO 10 mg DAILY SARA Administration Objective Remarks: GENERAL: Older female sitting up in chair at bedside. She appears comfortable. She is speaking in easy conversation. SKIN: Warm and dry. HEAD: Normocephalic. EYES: No scleral icterus. No injection or drainage. NECK: Supple, trachea midline. CARDIOVASCULAR: Regular rate and rhythm without murmurs. RESPIRATORY: Clear anteriorly. Breathing unlabored at rest. GASTROINTESTINAL: Abdomen soft, non-tender, nondistended. EXTREMITIES: No cyanosis, or edema. MUSCULOSKELETAL: Adequate muscle tone. NEUROLOGICAL: Awake and alert. Moving all extremities. Assessment/Plan - Plan This is a pleasant 77-year-old female patient with a history of metastatic breast cancer. Recent MRI with evidence of local progression, recent PET/CT showed no evidence of disease outside of the pelvis. Patient with pain due to a sacral fracture. 1. Patient tolerated sacral plasty well yesterday. 2. She has follow-up in clinic on Friday with Dr. Heck. 3. Clear for discharge from oncology standpoint. - Attending Statement The exam, history, and the medical decision-making described in the above note were completed with the assistance of the mid-level provider. I reviewed and agree with the findings presented. I attest that I had a [id number] encounter with the patient on the same day, and personally performed and documented my assessment and findings in the medical record. Denies any pain. She feels stiff. She is eager to work with physical therapy and go home. Family at bedside. She has a follow-up appointment with Dr. Heck on Friday. Okay for discharge from oncology standpoint.
--- NOTE | 2018-03-14 10:32 | P.PN ---
Subjective Interval history: Follow-up bony metastases disease/pathology left hip fracture/intractable pain March 11, 2018-patient seen and examined, states pain level unchanged mostly with activity. Otherwise no other issues March 12, 2018-patient seen and examined, complaining of pelvic discomfort and pain. Currently n.p.o. pending kyphoplasty March 13, 2018-patient seen and examined, sacral plasty not performed yesterday however plan for a today. Patient's quite anxious. March 14, 2018-patient seen and examined, denies any hip or back pain. Wants to go home. Daughter by the bedside. Physical Exam Vital signs: Vital Signs 03/13/18 14:39 03/13/18 14:45 03/13/18 15:00 Temperature 97.9 F Pulse Rate 95 H 90 85 Respiratory Rate 21 26 H 24 Blood Pressure 185/77 H 174/57 H 154/67 H Pulse Oximetry 99 98 95 03/13/18 15:15 03/13/18 15:37 03/13/18 19:16 Temperature 98.4 F Pulse Rate 83 83 Respiratory Rate 25 H 18 18 Blood Pressure 151/68 H 145/60 H Pulse Oximetry 95 96 03/13/18 20:00 03/14/18 00:00 03/14/18 04:00 Temperature 98.3 F 99.3 F 99.0 F Pulse Rate 85 78 96 H Respiratory Rate 18 18 18 Blood Pressure 122/54 L 151/69 H 152/84 H Pulse Oximetry 92 L 92 L 96 03/14/18 08:50 Temperature 97.6 F Pulse Rate 72 Respiratory Rate 18 Blood Pressure 143/78 H Pulse Oximetry 96 Intake & Output 03/13/18 03/14/18 03/14/18 18:59 06:59 18:59 Intake Total 240 / 240 Output Total 500 / 500 Balance -260 / -260 Weight 77.9 kg Intake: Oral 240 / 240 Output: Urine 500 / 500 Other: Date of Last Bowel Movement 03/12/18 03/12/18 Narrative: GENERAL: NAD SKIN: Warm and dry. HEAD: Normocephalic. EYES: No scleral icterus. No injection or drainage. NECK: Supple, trachea midline. No JVD or lymphadenopathy. CARDIOVASCULAR: Regular rate and rhythm without murmurs, gallops, or rubs. RESPIRATORY: Breath sounds equal bilaterally. No accessory muscle use. GASTROINTESTINAL: Abdomen soft, non-tender, nondistended. MUSCULOSKELETAL: No cyanosis, or edema. BACK: Nontender without obvious deformity. No CVA tenderness. Results - Labs CBC & Chem 7: 03/10/18 15:00 03/10/18 15:00 - Imaging Impressions Vertebroplasty 03/13/18 00:00 CONCLUSION: 1. Uncomplicated Sacrooplasty as above. Assessment and Plan - Plan 77-year-old female with Bony metastases disease Intractable pain History of pathology left hip fracture/sacral fracture Neurosurgical and orthopedic ff and recommended medical management s/p Sacral plasty 03/13/18 by interventional radiology PT to treat and eval Appreciate input from oncology Continue with pain management Breast cancer with metastases disease Management per oncology COPD- uses oxygen at home. with no exacerbation; neb treatment as needed. Hypertension Continue home medication RA stable on home medications -DVT prophylaxis; with SCD's
--- NOTE | 2018-03-14 10:33 | P.DS ---
Date of admission: 03/13/18 13:48 Primary care physician: Chelsie Puente MD Anticipated date of discharge: 03/14/18 Brief History from admission: patient is a 77 y/o female with history of breast cancer with metastasis to the bone who was advised by her oncologist to come to the hospital for intractable left hip and back pain. she says that she was found to have bone metastasis a few months ago and underwent radiation at the time. she says that she had a fall in December when she landed on her left side after which she started to have some pain. she says that the pain has been getting worse since then to the extent that she had troubled walking. she says that pain is tolerable when she' s sitting but it gets much worse when she starts to move. her home oral pain medications hasn't worked as much.she had an MRI of the back last week and due to the severity of the pain she was advised to come to the hospital. DS: Summary Hospital Course: While in hospital, patient was treated for: Bony metastases disease Intractable pain History of pathology left hip fracture/sacral fracture Neurosurgical and orthopedic ff and recommended medical management s/p Sacral plasty 03/13/18 by interventional radiology PT to treat and eval Appreciate input from oncology Continue with pain management Breast cancer with metastases disease Management per oncology COPD- uses oxygen at home. with no exacerbation; neb treatment as needed. Hypertension Continue home medication RA stable on home medications -DVT prophylaxis; with SCD's - Time Spent with Patient Total time spent providing and/or coordinating discharge services: Greater than 30 minutes - Quality: VTE Deep Vein Thrombosis/Pulmonary Embolism Present on Admission: No Exam Vital signs: Vital Signs 03/13/18 14:39 03/13/18 14:45 03/13/18 15:00 Temperature 97.9 F Pulse Rate 95 H 90 85 Respiratory Rate 21 26 H 24 Blood Pressure 185/77 H 174/57 H 154/67 H Pulse Oximetry 99 98 95 03/13/18 15:15 03/13/18 15:37 03/13/18 19:16 Temperature 98.4 F Pulse Rate 83 83 Respiratory Rate 25 H 18 18 Blood Pressure 151/68 H 145/60 H Pulse Oximetry 95 96 03/13/18 20:00 03/14/18 00:00 03/14/18 04:00 Temperature 98.3 F 99.3 F 99.0 F Pulse Rate 85 78 96 H Respiratory Rate 18 18 18 Blood Pressure 122/54 L 151/69 H 152/84 H Pulse Oximetry 92 L 92 L 96 03/14/18 08:50 Temperature 97.6 F Pulse Rate 72 Respiratory Rate 18 Blood Pressure 143/78 H Pulse Oximetry 96 Intake & Output 03/13/18 03/14/18 03/14/18 18:59 06:59 18:59 Intake Total 240 / 240 Output Total 500 / 500 Balance -260 / -260 Weight 77.9 kg Intake: Oral 240 / 240 Output: Urine 500 / 500 Other: Date of Last Bowel Movement 03/12/18 03/12/18 Narrative: GENERAL: NAD SKIN: Warm and dry. HEAD: Normocephalic. EYES: No scleral icterus. No injection or drainage. NECK: Supple, trachea midline. No JVD or lymphadenopathy. CARDIOVASCULAR: Regular rate and rhythm without murmurs, gallops, or rubs. RESPIRATORY: Breath sounds equal bilaterally. No accessory muscle use. GASTROINTESTINAL: Abdomen soft, non-tender, nondistended. MUSCULOSKELETAL: No cyanosis, or edema. BACK: Nontender without obvious deformity. No CVA tenderness. Results Procedures completed during hospitalization: PROCEDURE: 1. Fluoroscopy and cone beam CT Sacroplasty. 2. Conscious sedation with continuous EKG and oximetry monitoring. The risks, benefits and alternatives to the procedure were explained and verbal and written consent was obtained. The site was prepped in sterile fashion. Full sterile technique was used, including cap, mask, sterile gloves and gown and a large sterile sheet. Hand hygiene and 2% chlorhexidine and/or betadine/ alcohol prep was utilized per protocol for cutaneous antisepsis. The skin and subcutaneous tissues were infiltrated with local anesthetic solution. A 10-gauge trocar needle was advanced into the sacrum utilizing careful fluoroscopic guidance with intermittent Cone Beam CT to verify trajectory and final position. Cement was then injected through pushers under careful fluoroscopic guidance. The prescribed cement volume was placed. There was no evidence of cement extravasation. Conscious sedation was performed with the prescribed dosages and duration as above in the presence of an independent trained radiology nurse to assist in the monitoring of the patient. EKG and oximetry remained stable throughout the procedure. The patient tolerated the procedure well and there were no complications. The patient was sent to post anesthesia recovery in stable condition. - Impressions ITS Impressions Pelvis CT 03/10/18 00:00 CONCLUSION: 1. No evidence of acute intrapelvic process. 2. Bony changes suggestive of metastatic disease are again noted and unchanged compared to September 2017. A lytic destructive lesion is noted within the left pedicle and transverse process of L5 as well as within the medial aspect of the right iliac bone. Scattered smaller lesions are more difficult to identify on today's examination. Vertebroplasty 03/13/18 00:00 CONCLUSION: 1. Uncomplicated Sacrooplasty as above. Discharge Plan - Discharge Disposition Patient Disposition: W/Home Health Service - Discharge Condition Condition: Stable - Discharge Order Discharge Orders: Discharge Order (Routine); Ordered 03/14/18 Ordered By: Carlos Day - Discharge Details Anticipated Discharge Date: 03/14/18 - Physicians Team Primary Care Provider: Chelsie Puente Attending Provider: Carlos Day Other Providers: Maddie Heck ; Peter Zamudio MD ; Nii Cabrales MD - Rxs /Orders / Referrals /Forms Prescriptions: Continue anastrozole 1 mg Tablet 1 mg PO DAILY denosumab [Xgeva] 120 mg/1.7 mL (70 mg/mL) Solution 120 mg SUB-Q Q4W diltiazem HCl 180 mg Capsule,Extended Release 24 Hr 180 mg PO DAILY hydroxychloroquine [Plaquenil] 200 mg Tablet 200 mg PO BID ipratropium-albuterol 0.5 mg-3 mg(2.5 mg base)/3 mL Solution For Nebulization 3 ml INHALATION Q12H morphine 15 mg Tablet,Oral Only,Extnd Release 15 mg PO Q12H oxycodone 5 mg Tablet 5 mg PO Q4-6H PRN (Reason: Pain) paroxetine HCl [Paxil] 10 mg Tablet 10 mg PO DAILY prednisone 10 mg Tablet 10 mg PO DAILY umeclidinium [Incruse Ellipta] 62.5 mcg/actuation Blister With Device 1 inh INHALATION Q24H Referrals: Primary Care Provider [Outside] - See Instructions Chelsie Puente MD [Primary Care Provider] - See Instructions
== END 2018-03-14 12:59 | disposition home health service (06) ==
LOC: HCIN 13:14 → INTOOBSV 13:14 → OBSVTOIN 13:14
PROVIDERS: ADMIT Hospitalist; ATTEND Hospitalist